=== PATIENT | female | born 1970 | race Caucasian/White ===

== ENCOUNTER 2018-03-27 17:40 | Outpatient (REF) | payer BC, SELFPAY ==
[2018-03-29 12:18] LABS: Hepatitis C Ab w Rflx HCV PCR Negative (NEGAT)
[2018-03-29 12:37] LABS: HIV-1/2 Ag & Ab Screen Negative (NEGAT)
== END 2018-03-27 18:00 ==
LOC: NCHCN 17:40
PROVIDERS: PCP Nurse Practitioner Family; Visit Provider Registered Nurse
DX: Z11.3 Encounter for screening for infections with a predominantly sexual mode of transmission (principal); Z11.4 Encounter for screening for human immunodeficiency virus [HIV]; Z11.59 Encounter for screening for other viral diseases
CPT/HCPCS: 86803; 87389

== ENCOUNTER 2018-06-26 17:39 | Outpatient (REF) | payer BC, SELFPAY ==
[2018-06-28 12:17] LABS: Hepatitis C Ab w Rflx HCV PCR Negative (NEGAT)
[2018-06-28 12:33] LABS: HIV-1/2 Ag & Ab Screen Negative (NEGAT)
== END 2018-06-26 17:59 ==
LOC: NCHCN 17:39
PROVIDERS: PCP Nurse Practitioner Family; Visit Provider Registered Nurse
DX: Z11.3 Encounter for screening for infections with a predominantly sexual mode of transmission (principal); Z11.4 Encounter for screening for human immunodeficiency virus [HIV]; Z11.59 Encounter for screening for other viral diseases
CPT/HCPCS: 86803; 87389

== ENCOUNTER 2018-12-25 21:58 | Outpatient (REF) | payer MEDICAID, SELFPAY ==
[2018-12-27 11:40] LABS: Hepatitis C Ab w Rflx HCV PCR Negative (NEGAT)
[2018-12-27 11:46] LABS: HIV-1/2 Ag & Ab Screen Negative (NEGAT)
== END 2018-12-25 22:18 ==
LOC: NCHCN 21:58
PROVIDERS: PCP Nurse Practitioner Family; Visit Provider Registered Nurse
DX: Z11.3 Encounter for screening for infections with a predominantly sexual mode of transmission (principal); Z11.4 Encounter for screening for human immunodeficiency virus [HIV]; Z11.59 Encounter for screening for other viral diseases
CPT/HCPCS: 86803; 87389

== ENCOUNTER 2019-03-26 10:49 | Outpatient (REF) | payer MEDICAID, SELFPAY ==
[2019-03-28 14:59] LABS: HIV-1/2 Ag & Ab Screen Negative (Negative); Hepatitis C Ab w Rflx HCV PCR Negative (Negative)
== END 2019-03-26 11:09 ==
LOC: NCHCN 10:49
PROVIDERS: PCP Nurse Practitioner Family; Visit Provider Registered Nurse
DX: Z20.9 Contact with and (suspected) exposure to unspecified communicable disease (principal); Z11.4 Encounter for screening for human immunodeficiency virus [HIV]; Z11.59 Encounter for screening for other viral diseases
CPT/HCPCS: 86803; 87389

== ENCOUNTER 2020-01-02 07:25 | Outpatient (CLI) | payer MEDICAID, SELFPAY ==
[2020-01-03 19:24] LABS: Patient Race White; SARS-CoV-2 RNA Undetected (Undetected); SARS-CoV-2 Specimen Source Nasopharynx
== END 2020-01-02 07:45 ==
PROVIDERS: PCP Nurse Practitioner Family; Visit Provider Registered Nurse
DX: R50.9 Fever, unspecified (principal)
CPT/HCPCS: U0003

== ENCOUNTER 2020-01-05 15:44 | Emergency (ER) | payer MEDICAID, SELFPAY ==
[2020-01-05 15:50] VITALS: BP 153/91; PULSE 82; RESP 16; TEMP 37.1; O2SAT 98
--- NOTE | 2020-01-05 16:18 | ED.GENADUL_ITS ---
Discharge Plan Disposition Patient Disposition: HOME Condition: Stable Discharge Details Clinical Impression: Fever and chills Primary Care Provider: Ximena Wu ED Provider: Leti Lagunas Home Meds and New Rx's Prescriptions: New doxycycline hyclate 100 mg tablet 100 mg PO BID 14 Days Qty: 28 RF: 0 No Action omeprazole [Prilosec] 20 mg Capsule,Delayed Release(Dr/Ec) 20 mg PO DAILY RF: 0 Discharge Instructions Instructions: Lyme Disease (ED), Fever in Adults (ED) Additional Instructions: At this time the lying panel is pending. Due to symptoms and presence of rash will place you on doxycycline which is the treatment for Lyme disease as prophylaxis. This may cause upset stomach nausea and diarrhea. Eat yogurt daily while on the antibiotic and/or take a probiotic. Follow up with primary care provider in 3-5 days. Return to ED sooner if any worsening or concerns. Increase oral fluids. If the Lyme panel comes back positive you will get a call from us. We also added on a hepatitis panel to your labs which we will also call you back if it comes back positive. Referrals: Ximena Wu [Primary Care Provider] - Discharge Data Discharge Date/Time-TO BE ENTERED AT DEPARTURE: 01/05/20 18:05 Medical Decision Making At this time CBC, BMP, tick and Lyme panel, urinalysis ordered to eval for fever source. 1731: EKG was reviewed by Isidro Uribe MD ER attending, please see his official reading. Normal sinus rhythm, CBC shows no leukocytosis white blood cell count is 5.81, hemoglobin 13.8, hematocrit 42.3, sodium 137, potassium 3.8, BUN 9 creatinine 0.81, GFR greater than 60, AST is 95, ALT 255, alk phos is 139 patient denies drinking any alcohol. Urine shows small blood 3-5 RBCs. Differential diagnosis includes Lyme disease, hepatitis, or other etiology for fever. Patient denies any use of alcohol denies any chronic use of Tylenol or any other medications.. No other reason to explain elevated LFTs. At this time I will place patient on doxycycline for possible Lyme disease. Discussed this with patient who verbalizes understanding. At this time I do not feel that rash resembles herpes zoster or shingles. Patient instructed to follow-up with PCP in discussed that hepatitis panel and Lyme panel is pending at this time. HPI General Mode of arrival: ambulatory . Date/Time Provider Initiated Documentation: 01/05/20 16:05 . Limitations to Documentation: no limitations . Information obtained by: patient . HPI Narrative: 49-year-old female presents to the ED with chief complaint of fever x1 week. Patient states she has had flulike symptoms for the last week including fever, myalgias, chills. Yesterday she noticed a rash noted to her left flank. She denies any nausea vomiting diarrhea or abdominal pain. She does have a well demarcated area of erythema raised maculopapular area with a central puncture wound noted. It is warm. No surrounding erythema or induration. She has no past medical histories, is a non-smoker. Patient was concerned for possible Lyme disease although she cannot recall an exact tick bite, versus shingles. Related Data Home Medications Medication Instructions Recorded Confirmed doxycycline hyclate 100 mg PO BID 14 Days #28 tab 01/05/20 omeprazole [Prilosec] 20 mg PO DAILY 01/05/20 01/05/20 Previous Rx's Medication Instructions Recorded doxycycline hyclate 100 mg PO BID 14 Days #28 tab 01/05/20 Allergies Allergy/AdvReac Type Severity Reaction Status Date / Time No Known Allergies Allergy Unverified 01/05/20 15:56 General Stated Complaint: RashLesion SHASHI: 4 Review of Systems Narrative: Constitutional: Negative for weight loss, alert and oriented, well groomed, normal body habitus, appears comfortable. Positive fever. HEENT: Denies trauma, headaches, blurry vision, nasal discharge, sore throat, trouble swallowing. Chest: Denies chest pain, palpitations, irregular rhythm, hypertension. Respiratory: Denies Shortness of breath, cough, hemoptysis. GI: Denies abdominal pain, nausea, vomiting, diarrhea, constipation. : Denies dysuria, hematuria, flank pain, rectal bleeding. Skin, does have a well demarcated raised erythemic area with a central puncture wound noted to her left flank. Neuro: Denies dizziness, blurry vision, weakness, syncope, headache or facial numbness. Hematologic: Denies easy bruising, intolerance to heat or cold, hair loss. FORMERLY [facility], [facility] Social History Smoking/Tobacco Use Status: Never Alcohol Intake: never Substance use type: does not use Exam Narrative Exam Narrative: Constitutional: Alert and oriented x3. Appears stated age. Normal body habitus. Head: Normocephalic, no trauma. Eyes: Pupils PERRLA, Red reflex noted, EOM's intact. Eyelids symmetrical without lesions, discharge, or swelling. ENT: Bilateral TM's WNL, External ear normal to inspection, no mastoid TTP, sw elling, or erythema, Nasal turbinates WNL, no nasal discharge. Normal dentition, Posterior pharynx WNL, no exudate. Chest: RRR, Normal S1, S2, distal pulses intact. Resp: Lungs clear to auscultation bilaterally, no wheezes, rales, or rhonchi. Musculoskeletal: Normal gait, 5/5 strength to all four extremities. Skin: Has a well demarcated raised maculopapular area noted to her left flank. Measuring approximately 9 cm x 5 cm. There is a central puncture wound , capillary refill less than 2 sec. Neurologic: Cranial nerves II-XII intact. Alert and oriented x 3. DTR's intact. Hematologic/Lymphatic: No ecchymosis, no lymphadenopathy. Course Vital Signs Vital signs: Vital Signs Temperature 37.1 C 01/05/20 15:50 Pulse 82 01/05/20 15:50 Respiratory Rate 16 01/05/20 15:50 Blood Pressure 153/91 H 01/05/20 15:50 Pulse Oximetry 98 01/05/20 15:50 Temperature 37.1 C 01/05/20 15:50 Temperature Source Oral 01/05/20 15:50 Pulse 82 01/05/20 15:50 Respiratory Rate 16 01/05/20 15:50 Respiratory Effort Non-Labored 01/05/20 15:50 Blood Pressure 153/91 H 01/05/20 15:50 Blood Pressure Position Sitting 01/05/20 15:50 Pulse Oximetry 98 01/05/20 15:50 Oxygen Delivery Method Room Air 01/05/20 15:50 Oxygen Flow Rate 0 01/05/20 15:50 Pain Level 2 01/05/20 15:50
[2020-01-05 16:33] LABS: Bilirubin Negative (Negative); Blood Small (Negative); Clarity Clear (Clear); Glucose Negative (Negative); Ketones Negative (Negative); Leukocyte Esterase Negative (Negative); Nitrite Negative (Negative); Specific Gravity 1.025 (1.005-1.025); Urobilinogen 0.2 EU/dL (Up TO 0.2); pH 5.5 (5-8)
[2020-01-05 16:41] LABS: Epithelial Cells Many HPF (Negative); WBC Negative HPF (0-5)
[2020-01-05 16:42] LABS: Bacteria Negative HPF (Negative); C & S Indicated? No; Crystals Negative HPF (Negative); Mucus Heavy (Negative)
[2020-01-05 16:49] LABS: Abs Immature Grans 0.04 10^3/uL (0.0-0.06); Absolute Basophil Count 0.03 10^3/uL (0.0-0.2); Absolute Eosinophil Count 0.11 10^3/uL (0.0-0.7); Absolute Lymphocyte Count 1.52 10^3/uL (1.2-3.4); Absolute Monocyte Count 0.84 10^3/uL (0.1-0.8); Absolute Neutrophil Count 3.27 10^3/uL (1.2-6.7); Basophils % 0.5; Eosinophils % 1.9; HCT 42.3 % (36.0-46.0); HGB 13.8 g/dL (11.2-15.7); Immature Grans % 0.7; Lymphocytes % 26.2; MCH 29.1 pg (27.0-33.0); MCHC 32.6 % (32.0-36.0); MCV 89.1 fL (80-95); MPV 10.9 fL (8.0-11.0); Monocytes % 14.5; Neutrophils % 56.2; Nucleated RBC 0 %; Platelet Count 378 10^3/uL (130-400); RBC 4.75 10^6/uL (3.93-5.22); RDW 12.8 % (11.7-14.6); RDW-SD 42.5 fL; WBC 5.81 10^3/uL (4.4-10.8)
[2020-01-05 16:56] LABS: Anion Gap 6.1 mmol/L (3-11); BUN 9 mg/dL (7-18); CO2 29.9 mmol/L (21.0-32.0); CREATININE 0.81 mg/dL (0.55-1.02); Calcium 9.1 mg/dL (8.5-10.1); Chloride 101 mmol/L (98-107); Glucose 100 mg/dL (74-106); Potassium 3.8 mmol/L (3.5-5.1); Sodium 137 mmol/L (136-145)
[2020-01-05 17:02] LABS: ALT 255 U/L (14-59); AST 95 U/L (15-37); Albumin 3.4 g/dL (3.4-5.0); Alkaline Phosphatase 139 U/L (46-116); Bilirubin, Direct 0.17 mg/dL (0.00-0.20); Bilirubin, Total 0.4 mg/dL (0.2-1.0); Total Protein 7.9 g/dL (6.4-8.2)
--- NOTE | 2020-01-05 17:15 | RT.EKG_ITS ---
APPROVED REPORT Exam: Resting ECG Patient Location: E HR:76 bpm ECG Measurements Heart Rate 76 AXIS MS 121 P -10 QRSd 81 QRS 48 QT 381 T 7 QTc 430 Conclusion Sinus rhythm...normal P axis, V-rate 60- 99
[2020-01-05 17:58] VITALS: BP 143/76; PULSE 81; RESP 18; TEMP 37.3; O2SAT 97
[2020-01-05] MEDS: Doxycycline Hyclate 100 MG CAP PO (18:00)
[2020-01-05 18:03] VITALS: BP 143/76; PULSE 81; RESP 18; TEMP 37.3; O2SAT 97
[2020-01-07 11:50] LABS: Lyme Ab w Rflx to Lyme Confirm Positive (Negative)
[2020-01-07 12:42] LABS: Hepatitis A Antibody IgM Negative (Negative); Hepatitis B Core Antibody Negative (Negative); Hepatitis B surface Ag Negative (Negative); Hepatitis C Ab w Rflx HCV PCR Negative (Negative)
[2020-01-08 15:27] LABS: IgG Band(s) p41; IgG Immunoblot Negative (Negative); IgM Band(s) p23; IgM Immunoblot Negative (Negative)
--- NOTE | 2020-01-08 20:45 | W.ED.FU ---
Follow Up Plan: patient called asking for results, advised of negative hepatitis and positive lyme, she will continue doxy and folllw up with pcp
[2020-01-08 21:53] LABS: Anaplasma phagocytophilum Negative (Negative); B. miyamotoi PCR Negative (Negative); Babesia divergens/MO-1 Negative (Negative); Babesia duncani Negative (Negative); Babesia microti Negative (Negative); Ehrlichia chaffeensis Negative (Negative); Ehrlichia ewingii/canis Negative (Negative); Ehrlichia muris eauclairensis Negative (Negative)
--- NOTE | 2020-01-09 11:02 | W.ED.FU ---
Date of service: 01/09/20 Time of Service: 11:02 Follow Up Plan: Call made to patient regarding positive Lyme disease, she verbalizes understanding, has a PCP appt tomorrow and is taking the doxycycline.
== END 2020-01-05 18:05 | disposition home or self-care (01) ==
PROVIDERS: Emergency Provider Registered Nurse Emergency; PCP Internal Medicine
DX: R50.9 Fever, unspecified (principal); A69.20 Lyme disease, unspecified; Z03.818 Encounter for observation for suspected exposure to other biological agents ruled out
CPT/HCPCS: 36415; 80048; 80076; 86617; 86704; 86709; 86803; 87340; 87449; 87798; 93005; 99285; 81003; 81015; 85025; 86618; 93010; 99284

== ENCOUNTER 2020-01-10 09:43 | Outpatient (REF) | payer MEDICAID, SELFPAY ==
--- NOTE | 2020-01-10 09:15 | PAPFT_PTH ---
PATIENT: Adrianna Jeffers LOC: [facility] U#:[id number] AGE/SX: 49/F ROOM: RE01/10/[address]: Elaine Pal : 1970 BED: DIS: 01/10/2020 SPEC #: [id number] RECD: 01/11/20 12:58 STATUS: JOSE REQ #: [id number] KIYA: 01/10/20 09:[address]: Elaine Pal DEPT: [facility] Cytology RECD BY: Makenzie Jauregui ENTERED: 01/11/20 12:59 SP TYPE: PAPFT OTHR DR: Ximena Wu Tissues: 1 - CX/ENDOCX FOR PAP SMEARS Procedures: PAP THIN PREP/UVM Screening HPV DNA PROBE Comments: [id number] (CHLAMYDIA/GC)
[2020-01-10 21:08] LABS: Hemoglobin A1C 6.5 % (<5.7)
[2020-01-14 10:34] LABS: HIV-1/2 Ag & Ab Screen Negative (Negative)
[2020-01-15 07:15] LABS: Chlamydia Result Negative (Negative); GC Result Negative (Negative)
== END 2020-01-10 10:03 ==
LOC: NCHCN 09:43
PROVIDERS: PCP Internal Medicine; Visit Provider Registered Nurse
DX: Z11.4 Encounter for screening for human immunodeficiency virus [HIV] (principal); E66.9 Obesity, unspecified; R73.03 Prediabetes; Z00.00 Encounter for general adult medical examination without abnormal findings; Z12.4 Encounter for screening for malignant neoplasm of cervix
CPT/HCPCS: 87389; 87491; 87591; 88142; 83036; 87624

== ENCOUNTER 2020-01-24 16:19 | Outpatient (REF) | payer MEDICAID, SELFPAY ==
[2020-01-24 21:46] LABS: ALT 35 U/L (14-59); AST 17 U/L (15-37); Albumin 3.8 g/dL (3.4-5.0); Alkaline Phosphatase 94 U/L (46-116); Anion Gap 10.8 mmol/L (3-11); BUN 16 mg/dL (7-18); Bilirubin, Total 0.3 mg/dL (0.2-1.0); CO2 24.2 mmol/L (21.0-32.0); Calcium 8.8 mg/dL (8.5-10.1); Chloride 105 mmol/L (98-107); Glucose 140 mg/dL (74-106); Potassium 4.1 mmol/L (3.5-5.1); Sodium 140 mmol/L (136-145); Total Protein 7.4 g/dL (6.4-8.2)
== END 2020-01-24 16:39 ==
LOC: NCHCN 16:19
PROVIDERS: PCP Internal Medicine; Visit Provider Registered Nurse
DX: R74.8 Abnormal levels of other serum enzymes (principal)
CPT/HCPCS: 80053

== ENCOUNTER 2020-02-13 10:49 | Outpatient (REF) | payer MEDICAID, SELFPAY ==
--- NOTE | 2020-02-13 10:40 | CER_PTH ---
PATIENT: Adrianna Jeffers LOC: [facility] U#:[id number] AGE/SX: 49/F ROOM: RE02/13/[address]: Sandy Cain DO : 1970 BED: DIS: 02/13/2020 SPEC #: [id number] RECD: 02/13/20 12:52 STATUS: JOSE REQ #: [id number] KIYA: 02/13/20 10:[address]: Sandy Cain DEPT: Surgical Specimen RECD BY: Makenzie Jauregui ENTERED: 02/13/20 12:53 SP TYPE: CER OTHR DR: Ximena Wu Tissues: 1 - CERVICAL BIOPSY Procedures: GROSS AND MICRO LEVEL 4 Comments: [id number]
== END 2020-02-13 11:09 ==
LOC: LBN 10:49
PROVIDERS: PCP Internal Medicine; Visit Provider Obstetrics & Gynecology
DX: N84.1 Polyp of cervix uteri (principal)
CPT/HCPCS: 88305

== ENCOUNTER 2020-02-21 01:04 | Outpatient (CLI) | payer MEDICAID, SELFPAY ==
--- NOTE | 2020-02-21 06:15 | DI.US_ITS ---
EXAM: US PELVIS TRANSVAGINAL CLINICAL HISTORY: prolapse,CYSTOCELE,N81.10 TECHNIQUE: Transabdominal and transvaginal imaging was performed using standard protocol. COMPARISON: No exams were available for comparison FINDINGS: KIDNEYS: Kidneys are symmetric in size. No evidence of renal calculi. No evidence of hydronephrosis. No renal mass or cyst identified. UTERUS: Anteverted. 7.6 x 3.1 x 4.4 cm. Endometrium: 8 millimeters. Myometrium: 1.1 centimeter anterior myometrial fibroid. Cervix: Unremarkable. OVARIES: Right: Cyst or mass: 2.1 x 0.7 x 1.7 centimeter circumscribed fluid collection the adjacent to the ri ght ovary. Left: Cyst or mass: None. DOPPLER: Color: Symmetric and uniform flow to both ovaries. No hyperemia. Duplex: Normal ovarian arterial waveforms visualized. CUL-DE-SAC: Free fluid: None. IMPRESSION: 1. Small anterior myometrial fibroid. 2. Right para ovarian cyst. DATA REPOSITORY:
== END 2020-02-21 01:24 ==
PROVIDERS: PCP Internal Medicine; Visit Provider Obstetrics & Gynecology
DX: D26.1 Other benign neoplasm of corpus uteri (principal); N83.291 Other ovarian cyst, right side; N81.10 Cystocele, unspecified
CPT/HCPCS: 76830; 76856

== ENCOUNTER 2020-03-03 12:10 | Outpatient (REF) | payer MEDICAID, SELFPAY ==
--- NOTE | 2020-03-03 11:35 | ENDOMET_PTH ---
PATIENT: Adrianna Jeffers LOC: [facility] U#:[id number] AGE/SX: 49/F ROOM: RE03/03/[address]: Sandy Cain DO : 1970 BED: DIS: 03/03/2020 SPEC #: [id number] RECD: 03/03/20 12:39 STATUS: SOUShmuel REQ #: [id number] KIYA: 03/03/20 11:[address]: Sandy Cain DEPT: Surgical Specimen RECD BY: Makenzie Jauregui ENTERED: 03/03/20 12:39 SP TYPE: Endomet OTHR DR: Ximena Wu Tissues: 1 - ENDOMETRIUM BX/OBDULIO Procedures: GROSS AND MICRO LEVEL 4 Comments: [id number]
== END 2020-03-03 12:30 ==
LOC: LBN 12:10
PROVIDERS: PCP Internal Medicine; Visit Provider Obstetrics & Gynecology
DX: N85.8 Other specified noninflammatory disorders of uterus (principal); N85.00 Endometrial hyperplasia, unspecified
CPT/HCPCS: 88305

== ENCOUNTER 2020-05-19 04:28 | Outpatient (CLI) | payer MEDICAID, SELFPAY ==
[2020-05-19 09:19] LABS: Abs Immature Grans 0.05 10^3/uL (0.0-0.06); Absolute Basophil Count 0.04 10^3/uL (0.0-0.2); Absolute Eosinophil Count 0.11 10^3/uL (0.0-0.7); Absolute Lymphocyte Count 2.42 10^3/uL (1.2-3.4); Absolute Monocyte Count 0.66 10^3/uL (0.1-0.8); Absolute Neutrophil Count 6.16 10^3/uL (1.2-6.7); Basophils % 0.4; Eosinophils % 1.2; HCT 41.4 % (36.0-46.0); HGB 13.9 g/dL (11.2-15.7); Immature Grans % 0.5; Lymphocytes % 25.6; MCH 29.9 pg (27.0-33.0); MCHC 33.6 % (32.0-36.0); MPV 11.7 fL (8.0-11.0); Neutrophils % 65.3; Nucleated RBC 0 %; Platelet Count 320 10^3/uL (130-400); RBC 4.65 10^6/uL (3.93-5.22); RDW 12.6 % (11.7-14.6); RDW-SD 41.3 fL; WBC 9.44 10^3/uL (4.4-10.8)
[2020-05-19 10:15] LABS: Source Nasal/Nares
[2020-05-19 13:07] LABS: COVID-19 PCR Negative (Negative)
== END 2020-05-19 04:29 | disposition home or self-care (01) ==
LOC: LBO 04:28
PROVIDERS: PCP Internal Medicine; Visit Provider Obstetrics & Gynecology
DX: N81.89 Other female genital prolapse (principal); N39.46 Mixed incontinence; Z01.818 Encounter for other preprocedural examination; Z01.812 Encounter for preprocedural laboratory examination
CPT/HCPCS: 36415; 86850; 86900; 86901; U0003; 85025

== ENCOUNTER 2020-05-22 12:04 | Inpatient (IN) | payer MEDICAID, SELFPAY ==
[2020-05-22] VITALS (17 sets, daily range): BP systolic 95–136; BP diastolic 44–76; PULSE 65–79; RESP 12–28; TEMP 36.6–36.9; O2SAT 90–96
[2020-05-22] MEDS: Lactated Ringers 1,000 ML 125 ML IV ×2 (06:53→12:01)
[2020-05-22] MEDS: ceFAZolin 2 GM/50 ML BAG IVPB (08:14)
--- NOTE | 2020-05-22 10:00 | UTER_PTH ---
PATIENT: Adrianna Jeffers LOC: [facility] U#:[id number] AGE/SX: 50/F ROOM: OBS.306 RE05/22/[address]: Sandy Cain DO : 1970 BED: A DIS: 05/23/2020 SPEC #: [id number] RECD: 05/22/20 12:44 STATUS: SOUShmuel REQ #: [id number] KIYA: 05/22/20 10:[address]: Sandy Cain DEPT: Surgical Specimen RECD BY: Makenzie Jauregui ENTERED: 05/22/20 12:44 SP TYPE: UTER OTHR DR: Ximena Wu Tissues: 1 - UTERUS W OR W/O OVARIES(NOT TUMOR/PROLAPSE) Procedures: GROSS AND MICRO LEVEL 4 Comments: [id number]
[2020-05-22] MEDS: Bupivacaine 0.5% Pres-Free 30 ML VIAL (10:11)
--- NOTE | 2020-05-22 11:55 | W.PM.OP ---
Date of service: 05/22/20 Time of Service: 11:55 Operative Note Operative Note DATE OF PROCEDURE: 05/22/20 PRE-OP DIAGNOSIS: stress urinary incontinence POST-OP DIAGNOSIS: same PROCEDURE: midurethral sling (single incision) SURGEON: Alvarez Cortes ANESTHESIA TYPE: General LMA/ETT Refer to Anesthesia Record ESTIMATED BLOOD LOSS: 50 PATHOLOGY: none sent COMPLICATIONS: None Patient was transported to: PACU Patient's condition: stable Implants: Altis single incision mid urethral sling Indications: This is a 50-year-old woman who has a history of pelvic floor prolapse. She also has mixed urinary incontinence. She will be undergoing hysterectomy and pelvic floor repair by the gynecology team today. She is agreeable to a mid urethral sling to treat her stress incontinence. Findings: Clear urine from both ureteral orifice ease Procedure Description: The patient was brought to the operating room on 05/22/2020. She underwent hysterectomy and pelvic floor repair by Dr. Cain in the gynecology team. After the DEGREASER OPERATOR procedure was completed, I then performed the mid urethral sling. The patient was already in the dorsal lithotomy position. Her indwelling catheter was palpable and we identified the mid urethral area. An anterior vaginal wall incision was made over the mid urethral region. A plane was developed on each side of the urethra out to the obturator foramen. We then loaded and passed the needles of the Altis single incision sling along each of the dissected planes on each side of the urethra. The tip of the needles was passed through the obturator foramen and the bolsters on the sling were secured both were removed. The Hartman catheter was then removed and cystoscopy was performed with a 22 [place] rigid cystoscope. We utilized a 30 degree lens to visualize the ureteral orifice ease. Clear urine was seen coming from each side. We then switched to the 70 degree lens to get a better view of the bladder neck area. No perforations with the mid urethral sling or needles were identified. We then removed the cystoscope and replaced the 16 [place] Hartman catheter through the urethra into the bladder. The sling was tensioned by placing a Day scissors between the urethra and the sling. The tensioning suture was then cut leaving the sling flat against the mid urethral area. The vaginal mucosa was then closed using [id number] 2-0 Vicryl sutures. The patient tolerated this procedure well. We will decide when to remove the Hartman catheter as the patient recovers from anesthesia.
--- NOTE | 2020-05-22 12:06 | W.PM.OP ---
Date of service: 05/22/20 Time of Service: 12:06 Operative Note Operative Note DATE OF PROCEDURE: 05/22/20 PRE-OP DIAGNOSIS: Pelvic organ prolapse POST-OP DIAGNOSIS: same PROCEDURE: Laparoscopically assisted vaginal hysterectomy with bilateral salpingectomy, lysis of adhesions, anterior and posterior colporrhaphy, Travis's culdoplasty. SURGEON: Sandy Cain ASSISTING SURGEON: Clover Mendez ANESTHESIA TYPE: General LMA/ETT and Spinal Refer to Anesthesia Record ESTIMATED BLOOD LOSS: 150 PATHOLOGY: other (Uterus, remnants of fallopian tubes, cervix) COMPLICATIONS: None Patient was transported to: PACU Patient's condition: stable Indications: Pelvic organ prolapse, symptomatic Findings: Grade 2 uterine prolapse, grade 2 cystocele, hypermobile urethra, grade 1 rectocele with enterocele Procedure Description: Patient is a 50-year-old female multigravid who has symptomatic uterine prolapse and stress urinary incontinence. She had a full and thorough evaluation preoperatively including referral to Dr. Cortes for urology and evaluation of need for mid urethral sling. Risk benefits alternatives of procedure were explained to patient along with complications that include but are not limited to infection, bleeding, injury to surrounding organs, risk of anesthesia, thromboembolism, recurrence of her prolapse symptoms. Patient taken to operating suite with an IV running where she was placed in dorsal supine position after she has been seated for placement of spinal narcotics for pain control postoperatively. Endotracheal intubation performed for the administration of general anesthesia with ease. She was then placed in modified dorsolithotomy position and prepped and draped in usual sterile fashion. Hartman catheter was inserted for continuous bladder drainage. Exam under anesthesia revealed a previous dimension findings which were grade 2 uterine prolapse, grade 2 seal, grade 1 rectocele with enterocele. At this point speculum placed in the vaginal vault and a ZUMI uterine manipulator placed for uterine manipulation. Speculum was removed and attention turned to the anterior abdominal wall. Infraumbilical area was infiltrated with half percent Marcaine and a vertical incision made. The anterior abdominal wall was elevated and a varies needle inserted directly into the abdomen. Pneumoperitoneum was created by using CO2 gas to a maximum pressure of 15 mmHg. At this point a bladeless Visiport was used to directly insert the camera into the abdomen. The abdomen was inspected there is noted to be adhesions of the omentum to the anterior abdominal wall. At this point a second and third right and left lower quadrant trochars were placed after infiltration of half percent Marcaine under direct visualization. The abdomen and pelvis were inspected and found to be atraumatic. At this point the omental adhesions to the anterior abdominal wall were meticulously sharply dissected with a LigaSure device allowing the omentum to draped freely into the abdomen. At this point the uterus was elevated. Both ovaries were normal in appearance. There was noted to be dilation of the left fallopian tube remnant and adhesed fimbriated end and similar small portion of fimbriated end attached to the right ovary. At this point the remainder of the tube on the left was cautery transected and removed from the abdomen as well remainder of the portion of the tube on the right. This point attention was turned to the left round ligament which was cautery transected and ligated. The utero-ovarian ligament was cautery transected and ligated and the broad ligament was then opened and the bladder flap created anteriorly. Similar procedure was carried out on the right with cautery ligation of the utero-ovarian ligament followed by cautery ligation of the round ligament and allowing access to the broad ligament. The remainder of the bladder flap was created with meticulous sharp dissection. At this point all pedicles were inspected and found to be hemostatic and attention was then turned to the vaginal vault. Pneumoperitoneum was released and a ZUMI uterine manipulator was removed. Weighted speculum was inserted into the posterior vaginal vault and Gerson clamps used to grasp the anterior and posterior lip of the cervix. In a circumferential incisional fashion with cautery incision was made surrounding the cervix. The posterior cul-de-sac was entered grasped and entered sharply. Uterosacral cardinal complex was grasped with Zeppelin clamp bilaterally transected and ligated. At this point attention was turned to the anterior cul-de-sac which was meticulously sharp dissected and entered. Remainder of the uterine pedicles were clamped transected and ligated following delivery of the uterus and cervix through the vaginal vault. At this point attention was turned to the posterior peritoneum which in typical Travis's culdoplasty fashion was plicated. Suture was placed at the left uterosacral cardinal complex allowing elevation of the vaginal apices initially on the left and followed on the right. The remainder of the peritoneum was then closed and the vaginal cuff closure completed. At this point anterior colporrhaphy was performed in the usual fashion. [place] was grasped anterior vaginal wall infiltrated with 1% Marcaine with epinephrine and a linear vaginal incision was then made. The vaginal redundant tissue was meticulously sharply and bluntly dissected away from the underlying endopelvic fascia. There is 1 area that appeared to have a skin layer of tissue over the bladder which was oversewn with 4-0 Vicryl suture in a pursestring fashion. The vaginal mucosa at this point was trimmed and endopelvic fascia at the lateral anterior aspect of the vaginal vault was reapproximated to produce support of the anterior vaginal vault. The vaginal incision was then closed using 0 Vicryl suture in a running locked fashion and hemostatic. At this point posterior colporrhaphy was then performed. Allis clamps were used to grab the tissue at the posterior fourchette the posterior vaginal wall was infiltrated with 1% lidocaine with epinephrine and a vertical incision made carried out to the apex of the vaginal cuff. The vaginal mucosa was then again meticulously bluntly and sharply excised away from the underlying endopelvic fascia and trimmed appropriately. Enterocele was noted and pursestring suture placed to reduce the enterocele. At this point endopelvic fascia of the posterior vaginal septum was then reapproximated in the midline and vaginal tissue closed using again 0 Vicryl suture in a running locked fashion and found to be hemostatic. At this point anterior posterior portion were complete and attention was returned to the abdomen. Pneumoperitoneum was recreated and the abdomen inspected. All pedal were found to be hemostatic. This would include the vaginal cuff. At this point, Dr. Cortes was notified for completion of his portion of procedure with tension-free transobturator for mid urethral sling. He also performed cystoscopy of the bladder which confirmed atraumatic bladder and bilaterally patent ureters. Upon completion of his cystoscopy we diminished the CO2 gas for pneumoperitoneum removed all trochars from the abdomen. Fascial incision at the umbilicus was closed using 0 Vicryl suture in a simple interrupted fashion skin edge was then reapproximated 4-0 Monocryl suture and Steri-Strips along with a sterile dressing were placed. Upon completion of all procedure counts were correct and patient was returned to dorsal supine position. She woke from anesthesia with ease with replacement of a Hartman catheter draining clear yellow urine. She is today taken to recovery in stable condition. EBL: 150 mL Complications: None apparent Pathology: Bilateral tubal remnants and uterus with cervix for examination.
--- NOTE | 2020-05-22 14:53 | NUR.NOTE ---
1400-- Arrived via bed to room 305, awale. alert. IV LR @ 125 ml/hr. SCD applied bilat. Hartman to BSD. Report received fromWACU nurse.Nursing Note:
--- NOTE | 2020-05-22 17:08 | W.PM.PROGNOT ---
Date of Service Date of service: 05/22/20 Time of Service: 17:08 Assessment and Plan Assessment and plan (1) S/P laparoscopic assisted vaginal hysterectomy (LAVH): Status: Acute Assessment and plan: Patient seen tonight postoperative day #0 status post laparoscopically assisted vaginal hysterectomy with bilateral salpingectomy anterior. Posterior colporrhaphy and mid urethral sling placed by Dr. Cortes. She is doing well. Her pain is well controlled. She does have some itching. She is tolerating regular diet without difficulty. She was encouraged to ambulate and use her incentive spirometer tonight. She will be seen in the morning for probable discharge home Subjective Subjective Patient reports: no new complaints, feels better, pain is less and tolerating a regular diet Exam Const General: cooperative, healthy appearing, comfortable and no acute distress Eyes General: appearance normal, both eyes and all related structures Resp Effort & Inspection: normal respiratory effort Cardio Rate: regular rate Extrem General: no clubbing, cyanosis or edema Objective Last Vital Signs Temp 98.4 F 05/22/20 16:04 Pulse 69 05/22/20 16:04 Resp 16 05/22/20 16:04 BP 113/68 05/22/20 16:04 Pulse Ox 95 05/22/20 16:04
[2020-05-22] MEDS: diphenhydrAMINE 50 MG/ML VIAL 25 MG IVP (17:24)
[2020-05-22] MEDS: Normal Saline Flush 10 ML SYR IV ×2 (17:24→18:17)
[2020-05-22] MEDS: Ketorolac 30 MG/ML VIAL 15 MG IVP ×2 (18:16→23:56)
[2020-05-22] MEDS: Docusate Sodium 100 MG CAP PO (20:32)
[2020-05-23 02:45] VITALS: BP 114/68; PULSE 63; RESP 18; TEMP 37; O2SAT 96
[2020-05-23] MEDS: Ketorolac 30 MG/ML VIAL 15 MG IVP ×2 (05:59→11:37)
[2020-05-23] MEDS: Normal Saline Flush 10 ML SYR IV ×2 (05:59→11:38)
--- NOTE | 2020-05-23 07:00 | W.PM.PROGNOT ---
Date of Service Date of service: 05/23/20 Time of Service: 07:00 Assessment and Plan Assessment and plan (1) Mixed urinary incontinence due to female genital prolapse: Status: Acute Assessment and plan: She is doing well after her surgical procedure. Her catheter has been removed. I have no objection to her discharge after she voids. I will plan on seeing her back in 2 to 4 weeks for a recheck. If it is easier for the patient, we can make our recheck coincide with Dr. Cain's follow-up visit. Subjective Subjective Interval history since last seen: She is comfortable and sitting up in a chair at the bedside. Her Hartman catheter has already been removed. She is tolerating oral nutrition and medications. Exam Narrative Exam Narrative: She looks well. Her vital signs are documented elsewhere in this chart She is awake and alert Objective Last Vital Signs Temp 37.0 C 05/23/20 02:45 Pulse 63 05/23/20 02:45 Resp 18 05/23/20 02:45 BP 114/68 05/23/20 02:45 Pulse Ox 96 05/23/20 02:45
[2020-05-23 07:31] VITALS: BP 111/73; PULSE 60; RESP 18; TEMP 36.5; O2SAT 98
--- NOTE | 2020-05-23 07:55 | W.PM.PROGNOT ---
Date of Service Date of service: 05/23/20 Time of Service: 07:55 Assessment and Plan Assessment and plan (1) S/P laparoscopic assisted vaginal hysterectomy (LAVH): Status: Acute Assessment and plan: Patient postoperative day #1 status post laparoscopically assisted vaginal hysterectomy with bilateral salpingectomy, lysis of adhesions, anterior posterior colporrhaphy, mid urethral sling placement per Dr. Cortes. She is doing well. She is up, ambulating, Hartman catheter is out. Pain is well controlled. Vital signs are stable. She is tolerating regular diet. She is passing flatus. She will to be discharged home today with follow-up in the office in 2 weeks. Subjective Subjective Patient reports: no new complaints, feels better, tolerating a regular diet and flatus; denies vomiting, shortness of breath and fever Interval history since last seen: Patient seen and examined this morning. Doing well. Hartman catheter is out. She has little pain. Her itching is improving. She has been up moving. She is eating a regular diet and passing gas. Exam Const General: cooperative, healthy appearing, comfortable and no acute distress Nutritional Appearance: overweight Orientation: alert and oriented x3 Eyes General: appearance normal, both eyes and all related structures Resp Effort & Inspection: normal respiratory effort Cardio Rate: regular rate Rhythm: regular rhythm GI Inspection: normal to inspection and incision (Dressed with Band-Aids) Palpation: soft, not firm and no guarding Auscultation: normal bowel sounds Skin General skin exam: no rashes or lesions noted Extrem General: normal to inspection, no clubbing, cyanosis or edema and no calf tenderness Psych Appearance: grossly normal and well kempt Speech and Movement: speech and movement normal Mood: congruent mood Affect: normal affect Attitude: cooperative Thought Process: normal Thought Content: normal Objective Last Vital Signs Temp 97.7 F 05/23/20 07:31 Pulse 60 05/23/20 07:31 Resp 18 05/23/20 07:31 BP 111/73 05/23/20 07:31 Pulse Ox 98 05/23/20 07:31
--- NOTE | 2020-05-23 08:35 | W.PM.DS.N ---
Date of service: 05/23/20 Time of Service: 08:35 DS: Diagnosis Discharge Diagnosis (1) S/P laparoscopic assisted vaginal hysterectomy (LAVH): Status: Acute Discharge Plan Disposition Patient Disposition: HOME Condition: Good Discharge Details Reason For Visit: LAVH,A&P REPAIR,MID-URETHRAL SLING Admit Date/Time: 05/22/20 12:04 Admit Provider: Sandy Cain Attending Provider: Sandy Cain Primary Care Provider: Ximena Wu [facility] Course Hospital Course: Patient underwent laparoscopically assisted vaginal hysterectomy with bilateral salpingectomy, lysis of adhesions, anterior and posterior forefeet, Travis's culdoplasty, mid urethral sling placement. She had uncomplicated intraoperative and postoperative course. She is discharged home postoperative day #1 ambulating, tolerating regular diet and oral pain medication with stable vital signs and good ability to void. She will be seen back in the office in 2 weeks time for postoperative checkup. Prescriptions will be sent to the pharmacy which will include Motrin, [place], Colace. Home Meds and New Rx's Prescriptions: New ibuprofen 800 mg tablet 800 mg PO Q8H PRNQty: 30 RF: 1 docusate sodium [Colace] 100 mg capsule 100 mg PO BID Qty: 30 RF: 0 hydrocodone-acetaminophen 5-325 mg tablet 1 tab PO Q6H PRNQty: 10 RF: 0 Continued metformin 500 mg tablet 500 mg PO DAILY RF: 0 omeprazole 20 mg Capsule,Delayed Release(Dr/Ec) 20 mg PO DAILY RF: 0 Discharge Instructions Stand Alone Forms: DSU Post Gynecology Surgery Activity:: pelvic rest Equipment/Supplies:: No Equipment Needed Diet:: As Tolerated Discharge Orders Discharge Orders: Discharge Order (Routine); Ordered 05/23/20 Ordered By: Sandy Cain DS: Summary Time Spent with Patient providing and/or coordinating discharge services: Less than 30 minutes Status at Discharge Functional status at discharge: independent ambulation Overall status at discharge: patient is back to baseline Mental Status: mental status grossly normal Speech and Movement: speech and movement normal Mood: congruent mood Affect: normal affect Exam Narrative Exam Narrative: See exam from progress note dated 05/23/2020 Psych Mental Status: mental status grossly normal Speech and Movement: speech and movement normal Mood: congruent mood Affect: normal affect DS: Data Vitals/I&O Vitals and I&O: Vital Signs Temperature 97.7 F 05/23/20 07:31 Temperature Source Oral 05/23/20 07:31 Pulse 60 05/23/20 07:31 Pulse Rhythm Regular 05/23/20 07:31 Respiratory Rate 18 05/23/20 07:31 Respiratory Effort 05/23/20 07:31 Respiratory Depth Normal 05/23/20 07:31 Respiratory Pattern Normal 05/23/20 07:31 Blood Pressure 111/73 05/23/20 07:31 Pulse Oximetry 98 05/23/20 07:31 Respiratory End-tidal CO2 34 05/22/20 13:20 Oxygen Delivery Method Room Air 05/23/20 07:31 Oxygen Flow Rate 0 05/23/20 07:31 Pain Level 0 05/23/20 07:31 Comment 05/22/20 18:30 Intake & Output 05/22/20 05/22/20 05/23/20 11:59 23:59 11:59 Intake Total 50 / 2049 1999 / 0 1500 / 1500 Output Total 2400 / 2400 550 / 550 Balance 50 / -350 -400 / -350 950 / 950 Weight 224 lb 6.889 oz Intake: IV 2049 / 2049 Oral 1500 / 1500 Output: Urine 2250 / 2250 550 / 550 Estimated Blood Loss 150 / 150 Other: Urine Color Yellow Pale Pale Urine Appearance Clear Clear Clear Urine Odor None Comment catheter in place to BSD. Had been emptied in PACU Emesis Description None PFSH Medical History Cervical polyp Fibroids Heartburn Mixed urinary incontinence due to female genital prolapse Pelvic organ prolapse quantification stage 2 cystocele Prediabetes Thickened endometrium Surgical History (Updated 05/22/20 @ 17:10 by Sandy Cain DO) History of bunionectomy History of reversal of tubal ligation History of tubal ligation S/P laparoscopic assisted vaginal hysterectomy (LAVH) Social History Smoking/Tobacco Use Status: Never Smoking risk assessment performed?: Yes Alcohol Intake: never Substance use type: does not use Do you feel safe at home: Yes Do you feel safe in your relationship?: Yes
[2020-05-23] MEDS: Docusate Sodium 100 MG CAP PO (11:38)
== END 2020-05-23 12:11 | disposition home or self-care (01) | DRG 743 ==
LOC: OBS 14:15
PROVIDERS: Urology; Admitting Provider Obstetrics & Gynecology; PCP Internal Medicine; Visit Provider Obstetrics & Gynecology
PROC: 0UT9FZZ Resection of Uterus, Via Natural or Artificial Opening With Percutaneous Endoscopic Assistance (ICD-10-PCS; CPT 58552; principal; 2020-05-22 07:30)
PROC: 0UT9FZZ Resection of Uterus, Via Natural or Artificial Opening With Percutaneous Endoscopic Assistance (ICD-10-PCS; CPT 57260; 2020-05-22 07:30)
PROC: 0TSD0ZZ Reposition Urethra, Open Approach (ICD-10-PCS; CPT 57288; 2020-05-22 07:30)
DX: N81.2 Incomplete uterovaginal prolapse (principal); N39.46 Mixed incontinence; E11.9 Type 2 diabetes mellitus without complications; K21.9 Gastro-esophageal reflux disease without esophagitis; Z79.84 Long term (current) use of oral hypoglycemic drugs
CPT/HCPCS: 57288; 58552; 57265; 88305; 99232; 99238; NC; 88307; C1781; J0690; J1100; J1200; J1885; J2001; J2250; J2405; J2704; J3010

== ENCOUNTER 2020-07-13 20:25 | Emergency (ER) | payer MEDICAID, SELFPAY ==
[2020-07-13 20:45] VITALS: BP 140/95; PULSE 70; RESP 16; TEMP 36.7; O2SAT 98
--- NOTE | 2020-07-13 21:00 | DI.RAD_ITS ---
EXAM: XR SHOULDER RT COMPLETE 2+V CLINICAL HISTORY: pain after moving. TECHNIQUE: 2D digital imaging was performed. COMPARISON: No exams were available for comparison FINDINGS: There is no evidence of fracture or dislocation. The main finding is a prominent calcific density me asuring 1.6 0.5 cm the soft tissues adjacent to the greater tuberosity consistent with calcific rotat or cuff tendinitis-bursitis. Mild degenerative changes are noted in the glenohumeral and AC joints. IMPRESSION: Calcific rotator cuff tendinitis/bursitis. DATA REPOSITORY: RADIATION DOSE DELIVERED:
--- NOTE | 2020-07-13 21:50 | ED.GENADUL_ITS ---
Discharge Plan Disposition Patient Disposition: HOME Condition: Good Discharge Details Clinical Impression: Calcific tendinitis Primary Care Provider: Elaine Mora ED Provider: Makenzie Dinero Home Meds and New Rx's Prescriptions: Continued metformin 500 mg tablet 500 mg PO DAILY RF: 0 omeprazole 20 mg Capsule,Delayed Release(Dr/Ec) 20 mg PO DAILY RF: 0 Discharge Instructions Instructions: Tendinitis (ED) Additional Instructions: Take ibuprofen 600 mg every 8 hours with food Take Tylenol 650 every 4-6 hours I have supplied you with a sling, continue to range her shoulder so it does not become frozen. Please follow-up with physical therapy, at discretion of your pcp Decrease use of the affected arm i.e. no repetitive lifting Return earlier should you have fever, chills, worsening pain, or with any new or progressing symptoms including chest pain or shortness of breath Stand Alone Forms: Work Release Discharge Data Discharge Date/Time-TO BE ENTERED AT DEPARTURE: 07/13/20 22:05 Medical Decision Making Patient is afebrile and nontoxic, she has evidence of calcific tendinitis on her x-ray which was interpreted by radiology and reviewed by me She will be placed in a sling with frozen shoulder precautions discussed Given ibuprofen 600 mg every 8 hours with food Tylenol 650 mg every 4-6 hours She is also instructed to use Voltaren gel as needed for discomfort and suggested follow-up with physical therapy in the outpatient setting She will need outpatient reevaluation 1 week with persistent pain return cautions discussed patient understanding I did consider pulmonary embolism and myocardial ischemia, however patient has very reproducible shoulder pain with obvious calcified region over the affected area x-ray, exam consistent with diagnosis at discharge No pleuritic chest pain, no hypoxia, no tachypnea, low suspicion for pulmonary embolism other return precautions discussed Differential Diagnosis Differential Diagnosis: Septic bursitis, calcific tendinitis, strain, myocardial ischemia Medical Records Medical records reviewed: Yes I reviewed the patient's medical records. Lab Data Lab results reviewed: Yes I reviewed the patient's lab results. HPI This 50-year-old female presents with report of a right-sided shoulder pain which started 2 days prior to arrival after moving some heavy objects. She states the pain is exacerbated with any sort of position change. She denies any fever or chills. She denies any chest pain or shortness of breath. She does not have pain when the shoulder is completely sedentary. She denies any paresthesias or neck pain. She denies any headache. She describes the pain as sharp and positional. She has tried taking ibuprofen 800 mg at home without relief of her pain. She denies prior history of similar symptoms in the past. General Date/Time Provider Initiated Documentation: 07/13/20 20:52 . Related Data Home Medications Medication Instructions Recorded Confirmed omeprazole 20 mg PO DAILY 01/05/20 07/13/20 metformin 500 mg tablet 500 mg PO DAILY 02/13/20 07/13/20 Allergies Allergy/AdvReac Type Severity Reaction Status Date / Time morphine AdvReac Verified 07/13/20 20:48 Sulfa (Sulfonamide AdvReac Verified 07/13/20 20:48 Antibiotics) General Stated Complaint: Orthopedic SHASHI: 4 Review of Systems Narrative: Review of systems negative x7 aside from where indicated in HPI [facility] Medical History Cervical polyp Fibroids Heartburn Mixed urinary incontinence due to female genital prolapse Pelvic organ prolapse quantification stage 2 cystocele Prediabetes Thickened endometrium Surgical History History of bunionectomy History of reversal of tubal ligation History of tubal ligation S/P laparoscopic assisted vaginal hysterectomy (LAVH) Social History Smoking/Tobacco Use Status: Never Smoking risk assessment performed?: Yes Alcohol Intake: never Substance use type: does not use Do you feel safe at home: Yes Do you feel safe in your relationship?: Yes Exam Const General: cooperative and no acute distress Neck Other: No tenderness to palpation to left cervical spine Cardio Rate: regular rate Rhythm: regular rhythm Extrem Other: Right shoulder tenderness at insertion site of long head bicep tendon, no crepitus, no erythema or overlying rash Significant pain with supination and abduction Neurovascularly intact Course Vital Signs Vital signs: Vital Signs Temperature 36.7 C 07/13/20 20:45 Pulse 70 07/13/20 20:45 Respiratory Rate 16 07/13/20 20:45 Blood Pressure 140/95 H 07/13/20 20:45 Pulse Oximetry 98 07/13/20 20:45 Temperature 36.7 C 07/13/20 20:45 Temperature Source Skin 07/13/20 20:45 Pulse 70 07/13/20 20:45 Respiratory Rate 16 07/13/20 20:45 Respiratory Effort Non-Labored 07/13/20 20:48 Blood Pressure 140/95 H 07/13/20 20:45 Pulse Oximetry 98 07/13/20 20:45 Pain Level 8 07/13/20 20:45
--- NOTE | 2020-07-13 21:53 | DI.VRAD_ITS ---
PROCEDURE INFORMATION: Exam: XR Right Shoulder Exam date and time: 07/13/2020 9:08 PM Age: 50 years old Clinical indication: Shoulder; Right; Patient HX: Pain, no known trauma TECHNIQUE: Imaging protocol: XR Right shoulder. Views: 2 or more views. COMPARISON: No relevant prior studies available. FINDINGS: Bones/joints: Mild hypertrophic changes of the acromioclavicular joint are present. A subacromial spur is noted. No acute fracture or dislocation. Soft tissues: There is calcification of soft tissues in the expected location of the supraspinatus tendon. IMPRESSION: 1. Mild AC joint hypertrophy and subacromial spur. 2. Calcific tendinitis versus bursitis. Dictated and Authenticated by: Ashutosh Cramer MD. Ordering:DAMASO Banegas MD
[2020-07-13] MEDS: Ketorolac 15 MG/ML VIAL IM (21:55)
== END 2020-07-13 22:05 | disposition home or self-care (01) ==
PROVIDERS: Emergency Provider Physician Assistant; PCP Registered Nurse
DX: M75.31 Calcific tendinitis of right shoulder (principal)
CPT/HCPCS: 96372; 99284; 73030; 99283; J1885

== ENCOUNTER 2020-08-05 17:08 | Outpatient (REF) | payer MEDICAID, SELFPAY | END 2020-08-05 17:09 | disposition home or self-care (01) | LOC: LBN 17:08 | PROVIDERS: PCP Registered Nurse; Visit Provider Obstetrics & Gynecology | DX: R10.32 Left lower quadrant pain (principal); R82.998 Other abnormal findings in urine | CPT/HCPCS: 87086 ==

== ENCOUNTER 2020-08-25 02:26 | Outpatient (CLI) | payer MEDICAID, SELFPAY ==
--- NOTE | 2020-08-25 06:30 | DI.US_ITS ---
Exam(s) US PELVIS TRANSVAGINAL EXAM: US PELVIS TRANSVAGINAL CLINICAL HISTORY: LLQ PAIN,R10.32. TECHNIQUE: Transabdominal and transvaginal pelvic ultrasound was performed using standard protocol. COMPARISON: US US PELVIS TRANSVAGINAL from 02/21/2020 FINDINGS: KIDNEYS: Kidneys are symmetric in size. No evidence of renal calculi. No evidence of hydronephrosis. No renal mass or cyst identified. UTERUS: Status post hysterectomy. OVARIES: Ovaries were not visualized transabdominally or transvaginally on today's examination. No a dnexal masses identified. CUL-DE-SAC: Free fluid: None. Other: None. IMPRESSION: 1. Normal limited sonographic appearance of the kidneys. 2. Status post hysterectomy. 3. Ovaries not visualized on the current examination transabdominally or transvaginally. No adnexal masses identified on the current examination. DATA REPOSITORY:
== END 2020-08-25 02:46 ==
PROVIDERS: PCP Registered Nurse; Visit Provider Obstetrics & Gynecology
DX: R10.32 Left lower quadrant pain (principal); Z90.710 Acquired absence of both cervix and uterus
CPT/HCPCS: 76830; 76856

== ENCOUNTER 2020-10-08 16:16 | Outpatient (REF) | payer MEDICAID, SELFPAY ==
[2020-10-08 21:21] LABS: Abs Immature Grans 0.04 10^3/uL (0.0-0.06); Absolute Basophil Count 0.07 10^3/uL (0.0-0.2); Absolute Eosinophil Count 0.14 10^3/uL (0.0-0.7); Absolute Lymphocyte Count 2.84 10^3/uL (1.2-3.4); Absolute Monocyte Count 0.69 10^3/uL (0.1-0.8); Basophils % 0.9; Eosinophils % 1.8; HCT 41.2 % (36.0-46.0); HGB 13.3 g/dL (11.2-15.7); Immature Grans % 0.5; Lymphocytes % 35.6; MCH 29.1 pg (27.0-33.0); MCHC 32.3 % (32.0-36.0); MCV 90.2 fL (80-95); MPV 11.8 fL (8.0-11.0); Monocytes % 8.6; Neutrophils % 52.6; Nucleated RBC 0 %; Platelet Count 385 10^3/uL (130-400); RBC 4.57 10^6/uL (3.93-5.22); RDW 13.3 % (11.7-14.6); RDW-SD 43.9 fL; WBC 7.98 10^3/uL (4.4-10.8)
[2020-10-08 21:39] LABS: TSH 0.77 uIU/mL (0.36-3.74)
[2020-10-08 22:05] LABS: COMMENT (LAB VIEW ONLY) 137.76 mg/dL; Microalb ug/mg Crea 3.8 ug/mg Cr
== END 2020-10-08 16:17 | disposition home or self-care (01) ==
LOC: NCHCN 16:16
PROVIDERS: PCP Registered Nurse; Visit Provider Registered Nurse
DX: R53.83 Other fatigue (principal)
CPT/HCPCS: 82043; 82570; 84443; 85025

== ENCOUNTER 2021-02-27 16:40 | Outpatient (REF) | payer MEDICAID, SELFPAY ==
[2021-02-27 20:53] LABS: Calculated LDL 103 mg/dL (<100); Cholesterol 191 mg/dL (<200); HDL Cholesterol 43 mg/dL (40-60); Triglyceride 229 mg/dL (<150)
[2021-03-02 10:39] LABS: HIV-1/2 Ag & Ab Screen Negative (Negative)
[2021-03-02 12:49] LABS: Hepatitis C Ab w Rflx HCV PCR Equivocal (Negative)
[2021-03-04 11:49] LABS: HCV RNA Qualitative Undetected (Undetected)
== END 2021-02-27 16:41 | disposition home or self-care (01) ==
LOC: NCHCN 16:40
PROVIDERS: PCP Registered Nurse; Visit Provider Registered Nurse
DX: E11.9 Type 2 diabetes mellitus without complications (principal); Z11.4 Encounter for screening for human immunodeficiency virus [HIV]; Z11.59 Encounter for screening for other viral diseases
CPT/HCPCS: 80061; 86803; 87389; 87522

== ENCOUNTER 2021-12-08 12:20 | Outpatient (REF) | payer MEDICAID, SELFPAY ==
[2021-12-08 15:00] LABS: Abs Immature Grans 0.03 10^3/uL (0.0-0.06); Absolute Basophil Count 0.04 10^3/uL (0.0-0.2); Absolute Eosinophil Count 0.09 10^3/uL (0.0-0.7); Absolute Lymphocyte Count 2.76 10^3/uL (1.2-3.4); Absolute Monocyte Count 0.55 10^3/uL (0.1-0.8); Absolute Neutrophil Count 3.02 10^3/uL (1.2-6.7); Basophils % 0.6; Eosinophils % 1.4; HCT 41.5 % (36.0-46.0); HGB 13.8 g/dL (11.2-15.7); Immature Grans % 0.5; Lymphocytes % 42.5; MCH 30.5 pg (27.0-33.0); MCHC 33.3 % (32.0-36.0); MCV 92 fL (80-95); MPV 11.9 fL (8.0-11.0); Monocytes % 8.5; Neutrophils % 46.5; Platelet Count 347 10^3/uL (130-400); RBC 4.53 10^6/uL (3.93-5.22); RDW 12.7 % (11.7-14.6); RDW-SD 42.6 fL; WBC 6.49 10^3/uL (4.4-10.8)
[2021-12-08 15:23] LABS: ALT 30 U/L (14-59); AST 27 U/L (15-37); Albumin 3.8 g/dL (3.4-5.0); Alkaline Phosphatase 88 U/L (46-116); Anion Gap 8.9 mmol/L (3-11); BUN 20 mg/dL (7-18); Bilirubin, Total 0.4 mg/dL (0.2-1.0); CO2 27.1 mmol/L (21.0-32.0); CREATININE 0.8 mg/dL (0.55-1.02); Calcium 9.2 mg/dL (8.5-10.1); Chloride 102 mmol/L (98-107); Glucose 93 mg/dL (74-106); Potassium 4.7 mmol/L (3.5-5.1); Sodium 138 mmol/L (136-145); Total Protein 8.1 g/dL (6.4-8.2)
[2021-12-08 16:02] LABS: COMMENT (LAB VIEW ONLY) 58.26 mg/dL; PROTEIN 6.2 mg/dL
[2021-12-08 22:12] LABS: Albumin, Ur < 0.6 mg/dL (See Note); Creatinine, Ur 60.8 mg/dL (See Note)
== END 2021-12-08 12:21 | disposition home or self-care (01) ==
LOC: NCHCN 12:20
PROVIDERS: PCP Registered Nurse; Visit Provider Nurse Practitioner Family
DX: R03.0 Elevated blood-pressure reading, without diagnosis of hypertension (principal); E11.9 Type 2 diabetes mellitus without complications; Z51.81 Encounter for therapeutic drug level monitoring
CPT/HCPCS: 80053; 82043; 82565; 82570; 84156; 85025

== ENCOUNTER 2021-12-30 01:55 | Outpatient (CLI) | payer MEDICAID, SELFPAY ==
--- NOTE | 2021-12-30 18:00 | DI.MAMMO_ITS ---
Exam(s) MAMMO SCREENING EXAM: MAMMO SCREENING CLINICAL HISTORY: SCREENING, Z12.31 TECHNIQUE: Bilateral full field digital CC and MLO mammographic images were obtained with 3D tomosyn thesis and utilizing computer aided detection (CAD). COMPARISON: Available for comparison. FINDINGS: Masses/Architectural Distortion: None seen. Microcalcifications: No suspicious pleomorphic-type are seen. Skin Thickening/Nipple Retraction: None. IMPRESSION: 1. No significant interval change with no specific features of malignancy noted. 2. Unless there is more urgent need, screening mammography is recommended, as per [employer] [employer] guidelines. BI-RADS Category 1 - Negative Breast Density - Category B - Scattered areas of fibroglandular density Breast density category C or D implies that the patient has dense breast tissue. Dense breast tissue is very common and is not abnormal but dense breast tissue can make it harder to find cancer on a ma mmogram. Also, dense breast tissue may increase their breast cancer risk. This information about the result of the mammogram report was provided to the patient to raise their awareness. Use this report when you speak with the patient about their risks for breast cancer, which includes their family hist ory. At that time, you may recommend for more screening tests (Ultrasound or MRI) as they might be us eful based on their risk. A negative radiographic report should not delay biopsy if a dominant or clinically suspicious mass is present. Up to ten percent of cancers are not identified on mammography. A negative report may reinforce clinical impression. Adenosis and dense breasts may obscure an underlying neoplasm. False positive reports average 6 to 10%. Patient will receive a letter notifying them of these results.
== END 2021-12-30 02:15 ==
PROVIDERS: PCP Registered Nurse; Visit Provider Nurse Practitioner Family
DX: Z12.31 Encounter for screening mammogram for malignant neoplasm of breast (principal)
CPT/HCPCS: 77063; 77067

== ENCOUNTER 2022-03-09 13:46 | Outpatient (REF) | payer MEDICAID, SELFPAY ==
[2022-03-09 16:04] LABS: Abs Immature Grans 0.04 10^3/uL (0.0-0.06); Absolute Basophil Count 0.03 10^3/uL (0.0-0.2); Absolute Eosinophil Count 0.05 10^3/uL (0.0-0.7); Absolute Lymphocyte Count 2.23 10^3/uL (1.2-3.4); Absolute Monocyte Count 0.35 10^3/uL (0.1-0.8); Absolute Neutrophil Count 3.82 10^3/uL (1.2-6.7); Basophils % 0.5; Eosinophils % 0.8; HCT 41.2 % (36.0-46.0); HGB 13.7 g/dL (11.2-15.7); Immature Grans % 0.6; Lymphocytes % 34.2; MCH 29.9 pg (27.0-33.0); MCHC 33.3 % (32.0-36.0); MCV 90 fL (80-95); MPV 11.5 fL (8.0-11.0); Monocytes % 5.4; Neutrophils % 58.5; Platelet Count 310 10^3/uL (130-400); RBC 4.58 10^6/uL (3.93-5.22); RDW 12.8 % (11.7-14.6); RDW-SD 42.4 fL; WBC 6.52 10^3/uL (4.4-10.8)
[2022-03-09 16:45] LABS: ALT 32 U/L (14-59); AST 20 U/L (15-37); Alkaline Phosphatase 89 U/L (46-116); BUN 18 mg/dL (7-18); Bilirubin, Total 0.3 mg/dL (0.2-1.0); CREATININE 0.8 mg/dL (0.55-1.02); Calcium 8.9 mg/dL (8.5-10.1); Calculated LDL 120 mg/dL (<100); Chloride 103 mmol/L (98-107); Cholesterol 189 mg/dL (<200); Glucose 91 mg/dL (74-106); HDL Cholesterol 48 mg/dL (40-60); Potassium 4.8 mmol/L (3.5-5.1); Sodium 138 mmol/L (136-145); TSH 0.79 uIU/mL (0.36-3.74); Total Protein 7.4 g/dL (6.4-8.2); Triglyceride 109 mg/dL (<150); Vitamin B12 873 pg/mL (193-986)
[2022-03-09 17:56] LABS: Vitamin D 25 Total 23.8 ng/mL (30-100)
== END 2022-03-09 13:47 | disposition home or self-care (01) ==
LOC: NCHCN 13:46
PROVIDERS: PCP Registered Nurse; Visit Provider Nurse Practitioner Family
DX: E11.9 Type 2 diabetes mellitus without complications (principal); R53.83 Other fatigue; R74.8 Abnormal levels of other serum enzymes; Z51.81 Encounter for therapeutic drug level monitoring; Z63.79 Other stressful life events affecting family and household
CPT/HCPCS: 80053; 80061; 82306; 82607; 84443; 85025

== ENCOUNTER 2022-04-21 03:28 | Outpatient (CLI) | payer MEDICAID, SELFPAY ==
--- NOTE | 2022-04-21 | DI.MRI_ITS ---
Exam(s) MR ANGIO BRAIN WO CLINICAL HISTORY: LT TRANSIENT VISUAL FIELD LOSS, H53.122,? TIA, H/O DIABETES. TECHNIQUE: 3D myxl-gp-yilxyl study was performed without contrast. COMPARISON: None. FINDINGS: Carotid Arteries: Petrous: Normal. Cavernous: Normal. Cerebral: Normal. Middle Cerebral Arteries: Right: No aneurysm or significant stenosis. Left: No aneurysm or significant stenosis. Anterior Cerebral Arteries: Right: No aneurysm or significant stenosis. Left: No aneurysm or significant stenosis. Posterior cerebral arteries: Right: No aneurysm or significant stenosis Left: No aneurysm or significant stenosis Vertebral Arteries: Right: No aneurysm or significant stenosis. No dissection. Left: No aneurysm or significant stenosis. No dissection.. Basilar Artery: No aneurysm or significant stenosis. Small Vessels: No evidence of beading. IMPRESSION: Normal MRA examination of the [place]. DATA REPOSITORY:
--- NOTE | 2022-04-21 | DI.MRI_ITS ---
Exam(s) MR ANGIO NECK WO EXAM: MR ANGIO NECK WO CLINICAL HISTORY: LT TRANSIENT VISUAL FIELD LOSS,H53.122, ? TIA, H/O DIABETES. TECHNIQUE: Multiplanar multisequence MRA of the Neck was performed. COMPARISON: MR MR ANGIO BRAIN WO from 04/21/2022 FINDINGS: Common Carotid: Right: No dissection, occlusion or significant stenosis. Left: No dissection, occlusion or significant stenosis. External Carotid: Right: No evidence of occlusion or significant stenosis. Left: No evidence of occlusion or significant stenosis. Internal Carotid: Right: No dissection, occlusion or significant stenosis. Left: No dissection, occlusion or significant stenosis. Vertebral Artery: Right: No dissection, occlusion or significant stenosis. Left: No dissection, occlusion or significant stenosis. IMPRESSION: No evidence of dissection, occlusion or significant stenosis. DATA REPOSITORY:
--- NOTE | 2022-04-21 | DI.MRI_ITS ---
Exam(s) MR BRAIN WO/W EXAM: MR BRAIN WO/W CLINICAL HISTORY: LT TRANSIENT VISUAL LOSS,H53.122,? TIA,H/O DIABETES. TECHNIQUE: Multiplanar multisequence MRI of the brain was performed. CONTRAST MATERIAL: IV Contrast: 20 ML of Dotarem contrast administered. COMPARISON: No exams were available for comparison FINDINGS: VENTRICLES AND EXTRA AXIAL SPACES: Normal in size and morphology for the patient's age. HEMORRHAGE: None. CEREBRAL PARENCHYMA: No focus of restricted diffusion to suggest acute infarct. No space-occupying le walker identified. MIDLINE SHIFT: None. BRAINSTEM/CEREBELLUM: Normal. ENHANCEMENT: No suspicious enhancement identified. VISUALIZED PARANASAL SINUSES/MASTOIDS: Clear. OTHER FINDINGS: The sella appears somewhat expanded with inferior compression of the pituitary by flu id within the sella. No pituitary mass. IMPRESSION: The pituitary gland appears compressed by fluid within the sella which also appears mildly expanded. DATA REPOSITORY:
[2022-04-21] MEDS: Normal Saline Flush 10 ML SYR IVP (10:38)
[2022-04-21] MEDS: Gadoterate meglumine 20 ML VIAL IVP (10:39)
== END 2022-04-21 03:48 ==
PROVIDERS: PCP Registered Nurse; Visit Provider Nurse Practitioner Family
DX: H53.122 Transient visual loss, left eye (principal)
CPT/HCPCS: 70544; 70547; 70553

== ENCOUNTER 2022-09-13 17:52 | Outpatient (REF) | payer MEDICAID, SELFPAY ==
[2022-09-13 19:38] LABS: Vitamin D 25 Total 29.1 ng/mL (30-100)
[2022-09-15 12:12] LABS: Lyme Ab w Rflx to Lyme Confirm Negative (Negative)
[2022-09-15 14:01] LABS: Chlamydia Result Negative (Negative); GC Result Negative (Negative)
[2022-09-15 14:26] LABS: Hepatitis C Ab w Rflx HCV PCR Negative (Negative)
[2022-09-15 17:04] LABS: HIV-1/2 Ag & Ab Screen Negative (Negative)
== END 2022-09-13 17:53 | disposition home or self-care (01) ==
LOC: NCHCN 17:52
PROVIDERS: PCP Nurse Practitioner Family; Visit Provider Nurse Practitioner Family
DX: Z11.59 Encounter for screening for other viral diseases (principal); Z11.4 Encounter for screening for human immunodeficiency virus [HIV]; Z11.3 Encounter for screening for infections with a predominantly sexual mode of transmission; E55.9 Vitamin D deficiency, unspecified; Z86.19 Personal history of other infectious and parasitic diseases; E11.9 Type 2 diabetes mellitus without complications
CPT/HCPCS: 82306; 86803; 87389; 87491; 87591; 86618

== ENCOUNTER 2023-04-19 16:29 | Outpatient (REF) | payer OTHER, SELFPAY ==
[2023-04-19 18:36] LABS: HCT 40.4 % (36.0-46.0); HGB 13.4 g/dL (11.2-15.7); MCH 30.2 pg (27.0-33.0); MCHC 33.2 % (32.0-36.0); MCV 91 fL (80-95); MPV 12.2 fL (8.0-11.0); Platelet Count 339 10^3/uL (130-400); RBC 4.43 10^6/uL (3.93-5.22); RDW 12.8 % (11.7-14.6); RDW-SD 42.8 fL; WBC 7.32 10^3/uL (4.4-10.8)
[2023-04-19 18:48] LABS: ALT 35 U/L (14-59); AST 17 U/L (15-37); Albumin 3.8 g/dL (3.4-5.0); Alkaline Phosphatase 85 U/L (46-116); Anion Gap 8.7 mmol/L (3-11); BUN 14 mg/dL (7-18); Bilirubin, Total 0.4 mg/dL (0.2-1.0); CO2 27.3 mmol/L (21.0-32.0); CREATININE 0.7 mg/dL (0.55-1.02); Calcium 9.1 mg/dL (8.5-10.1); Calculated LDL 111 mg/dL (<100); Chloride 105 mmol/L (98-107); Cholesterol 174 mg/dL (<200); Estimated GFR 102.71 (mL/min/1.73m2); Glucose 93 mg/dL (74-106); HDL Cholesterol 48 mg/dL (40-60); Potassium 4.8 mmol/L (3.5-5.1); Sodium 141 mmol/L (136-145); Total Protein 7.3 g/dL (6.4-8.2); Triglyceride 78 mg/dL (<150)
[2023-04-19 19:09] LABS: Vitamin D 25 Total 31.2 ng/mL (30-100)
[2023-04-19 19:26] LABS: Hemoglobin A1C 5.6 % (<5.7)
== END 2023-04-19 16:30 | disposition home or self-care (01) ==
LOC: NCHCN 16:29
PROVIDERS: PCP Nurse Practitioner Family; Visit Provider Nurse Practitioner Family
DX: E11.9 Type 2 diabetes mellitus without complications (principal); E55.9 Vitamin D deficiency, unspecified; Z13.220 Encounter for screening for lipoid disorders
CPT/HCPCS: 80053; 80061; 82306; 85027; 83036

== ENCOUNTER → 2023-06-23 02:43 | Outpatient (CLI) | payer OTHER, SELFPAY ==
--- NOTE | 2023-06-23 08:15 | DI.RAD_ITS ---
Exam(s) XR FOOT LT COMPLETE EXAM: XR FOOT LT COMPLETE CLINICAL HISTORY: painful bunion, s/p repair,m21.612. TECHNIQUE: 2D digital imaging was performed. Three views. COMPARISON: CR XR FOOT RT COMPLETE from 06/23/2023 FINDINGS: BONES: No acute fracture is present. No bony destructive lesion is seen. Prior bunionectomy. Two sc rews are seen across the 1st tarsal metatarsal joint. Small heel spurs. JOINTS: No dislocation present. Degenerative changes at tarsal metatarsal joints. SOFT TISSUE: Normal. IMPRESSION: Postsurgical and degenerative changes. DATA REPOSITORY: RADIATION DOSE DELIVERED:
--- NOTE | 2023-06-23 08:15 | DI.RAD_ITS ---
Exam(s) XR FOOT RT COMPLETE EXAM: XR FOOT RT COMPLETE CLINICAL HISTORY: PAINFUL bunion, s/p bunionectomy REPAIR,M21.609. TECHNIQUE: 2D digital imaging was performed. Three views. COMPARISON: No exams were available for comparison FINDINGS: BONES: 2 screws are noted in the 1st metatarsal. No acute fracture is present. No bony destructive l esion is seen. Heel spurs. JOINTS: No dislocation present. Moderate hallux valgus. Valgus deviation of the 2nd and 3rd toes. Degenerative changes are noted at the tarsal metatarsal joints. Mild degenerative changes 1st MTP isauro int.. SOFT TISSUE: Normal. IMPRESSION: Postsurgical and degenerative changes. DATA REPOSITORY: RADIATION DOSE DELIVERED:
== END ==
PROVIDERS: PCP Nurse Practitioner Family; Visit Provider Podiatrist
DX: M21.612 Bunion of left foot (principal); Z98.890 Other specified postprocedural states
CPT/HCPCS: 73630

== ENCOUNTER 2024-05-02 08:11 | Emergency (ER) | payer OTHER, SELFPAY ==
[2024-05-02] VITALS (7 sets, daily range): BP systolic 147–168; BP diastolic 86–137; PULSE 63–81; RESP 12; TEMP 36.7; O2SAT 94–98
--- NOTE | 2024-05-02 08:30 | DI.CT_ITS ---
Exam(s) CT ABDOMEN PELVIS W EXAM: CT ABDOMEN PELVIS W CLINICAL HISTORY: epigastric/RUQ tenderness, LUQ tenderness. TECHNIQUE: Imaging Protocol: Axial computed tomography images with coronal and sagittal reformatted images were created and reviewed CONTRAST MATERIAL: Intravenous: Omnipaque-350 100cc Oral: None COMPARISON: No exams were available for comparison FINDINGS: VISUALIZED LUNG BASES: No nodules nor pleural effusions evident. ABDOMEN: There is no ascites. LIVER: Liver is hypodense implying steatosis. There is relative sparing of the caudate lobe which ex hibits normal postcontrast density. There are no discrete focal hepatic lesions nor dilatation of in trahepatic ducts. GALLBLADDER/BILIARY: No obvious gallbladder pathology. CBD is not dilated. PANCREAS: There is very subtle streaking around the pancreatic head which may indicate an element of pancreatitis. The remainder of the pancreas appears unremarkable. The pancreatic duct is not dilate d. There are no peripancreatic fluid collections. SPLEEN: Spleen is not enlarged. No obvious intrasplenic lesions. Splenic and portal veins are paten t. ADRENALS: Small sub cm nodule in the genu of the left adrenal gland is probably an incidental small a denoma. Right adrenal gland unremarkable. KIDNEYS: No solid renal masses. No calculi nor hydronephrosis.. ABDOMINAL AORTA: Abdominal aorta is not enlarged. LYMPH NODES:There is no retroperitoneal nor paraaortic adenopathy. ABDOMINAL WALL: No evidence of significant anterior abdominal wall nor inguinal hernia. GI: There is no evidence of bowel obstruction, free air, nor abscess. There is diverticulosis of the transverse and left colon and sigmoid without evidence of obvious acut e diverticulitis. PELVIS: GI: No evidence of appendicitis.No evidence of sigmoid diverticulitis. LYMPH NODES: There is no intrapelvic nor inguinal adenopathy. REPRODUCTIVE: Uterus is surgically absent. There are no abnormal adnexal masses. URINARY BLADDER: Mildly distended. Mild cystocele. No other bladder findings. Pelvic ureters are n ot dilated. OSSEOUS: No fractures and no significant osseous lesions. Benign intraosseous hemangioma is noted in the left side of the L1 vertebral body. There is mild deg enerative anterolisthesis L5 upon S1. IMPRESSION: 1. There is mild streaking around the pancreatic head and uncinate process concerning for pancreatiti s. The pancreatic duct is not dilated. The remainder of the pancreas appears unremarkable. There a re no Jazz pancreatic fluid collections. There are no pancreatic calcifications. 2. Hepatic steatosis with relative sparing of the caudate lobe. No splenomegaly. No ascites. 3. Previous hysterectomy. 4. Mild urinary bladder cystocele here and mild-moderate bladder distension. Findings discussed with ER provider 05/02/2024 10:15 a.m. RADIATION DOSE DELIVERED: 726.87mGy.cm Total DLP DATA REPOSITORY: All CT scans at this facility are submitted to the National Radiology Data Registry (NRDR) Dose Index Registry (DIR) with the [employer] (A[employer]). RADIATION OPTIMIZATION: All CT scans at this facility use at least one of these dose optimization te chniques: automated exposure control; mA and/or kV adjustment per patient size (includes targeted exa ms where dose is matched to clinical indication); or iterative reconstruction.
--- NOTE | 2024-05-02 08:41 | ED.GENADUL_ITS ---
Discharge Plan Disposition Patient Disposition: Home Condition: Stable Discharge Details Clinical Impression: Duodenitis Primary Care Provider: JOSHUA MILLS ED Provider: Tyrel Pinzon Home Meds and New Rx's Prescriptions: Continued fluoride (sodium) [SF 5000 Plus] 1.1 % cream 1 applic dental DAILY Advil PM Liqui-Gels 200-25 mg capsule 2 cap PO QHS PRN metformin 1,000 mg tablet 1,000 mg PO DAILY Ozempic 2 mg/dose (8 mg/3 mL) pen injector 2 mg subcut QWEEK omeprazole 20 mg capsule,delayed release(DR/EC) 20 mg PO DAILY PRN Discharge Instructions Instructions: Gastritis, Pancreatitis (DC), Oxycodone Additional Instructions: You were seen in the emergency department for your centralized abdominal pain, there is some evidence on your CT of some infection around either the pancreas or the duodenum, your pancreas enzymes are normal I do suspect you may have a small duodenal ulcer, please start taking your omeprazole once daily, this should improve symptoms if the etiology is an ulcer. Please discontinue Aleve and other NSAIDs like ibuprofen and take 1000 mg of Tylenol every 6 hours for pain, use the breakthrough oxycodone tablets for the next couple days for any pain and may help you sleep better at night. Perform bowel rest including clear fluid diet for the next couple of days, if you must eat try and avoid complex carbohydrates. I have placed you on a list for endoscopy at surgery office, please return to the emergency department for severe increase in abdominal pain, intractable nausea or vomiting, fever, failure to improve in 2 weeks with this new medication regimen. Referrals: [facility] [Provider Group] JOSHUA MILLS, POWER TOOL REPAIR TECHNICIAN [Primary Care Provider] - Discharge Data Discharge Date/Time-TO BE ENTERED AT DEPARTURE: 05/02/24 11:10 HPI General Date/Time Provider Initiated Documentation: 05/02/24 08:30 . HPI Narrative: 54 year-old female presents to ED today by POV/ambulating with a chief complaint of dull aching upper abdominal pain with onset on Tuesday. Quality described as upper abdominal pain, denies nausea/vomiting/diarrhea, no radiation to chest pain, shortness of breath, cough, hemoptysis, black/bloody stools. Severity is described as moderate. Palliating factors include nothing specific attempted. Provoking factors include nothing specific. Events leading up to the incident/Associated Symptoms: Patient does have prilosec on a PRN basis. Patient not anticoagulated. Related Data Home Medications ?Medication ?Instructions ?Recorded ?Confirmed omeprazole 20 mg capsule,delayed 20 mg PO DAILY PRN 08/05/20 05/02/24 release semaglutide 2 mg/dose (8 mg/3 mL) 2 mg subcut QWEEK 07/05/22 05/02/24 subcutaneous pen injector (Ozempic) fluoride (sodium) 1.1 % dental 1 applic dental DAILY 07/04/23 05/02/24 cream (SF 5000 Plus) ibuprofen 200 mg-diphenhydramine 2 cap PO QHS PRN 07/04/23 05/02/24 HCl 25 mg capsule (Advil PM Liqui-Gels) metformin 1,000 mg tablet 1,000 mg PO DAILY 07/11/23 05/02/24 Allergies Allergy/AdvReac Type Severity Reaction Status Date / Time morphine AdvReac vomiting Verified 05/02/24 08:16 Sulfa (Sulfonamide AdvReac vomiting Verified 05/02/24 08:16 Antibiotics) General Stated Complaint: Abd Prob SHASHI: 3 Review of Systems All systems reviewed & are unremarkable except as noted in HPI and below Exam Narrative Exam Narrative: GENERAL APPEARANCE: Well-nourished, non-toxic, awake and alert, atraumatic, no acute distress. SKIN: Warm, pink, dry, intact, without rashes/lesions/ulcerations. HEAD: Normocephalic, atraumatic, normal hair distribution for gender/age. EYES: Normal conjunctiva, no exudates on lids/lashes. ENT: Nares patent, no circumoral cyanosis, no facial swelling NECK: Supple, trachea midline, painless cervical ROM. LUNGS/CHEST: Lungs CTA bilaterally, non-labored respirations, normal A/P diameter, symmetrical expansion, no chest wall deformity HEART (CV/PV): Regular rate and rhythm without murmur, no peripheral edema, no JVD. ABDOMEN: Soft, non-distended, no guarding, epigastric tenderness without overt Bansal sign, no McBurney's point tenderness, no left-sided abdominal tenderness. MSK: Normal ROM, no swelling/deformity to bilateral UEs or LEs, moving all extremities without weakness, no cyanosis, spine midline without tenderness, normal curvature. NEURO: Mental Status AAOx4 - alert to person, place, time, events No facial droop, no forehead involvement. Motor: No focal weakness - strength 5/5 in bilateral UEs and LEs, proximal and distal, symmetric. Sensory: sensation intact to light touch globally. Gait normal: patient ambulated without ataxia into ED room. PSYCH: euthymic, cooperative, pleasant, appropriate speech Course Vital Signs Vital signs: Vital Signs Temperature 36.7 C 05/02/24 08:11 Pulse 81 05/02/24 08:11 Respiratory Rate 12 05/02/24 08:11 Blood Pressure 168/93 H 05/02/24 08:11 Pulse Oximetry 98 05/02/24 08:11 Temperature 36.7 C 05/02/24 08:11 Temperature Source Oral 05/02/24 08:11 Pulse 81 05/02/24 08:11 Respiratory Rate 12 05/02/24 08:11 Blood Pressure 168/93 H 05/02/24 08:11 Blood Pressure Position Sitting 05/02/24 08:11 Pulse Oximetry 98 05/02/24 08:11 Oxygen Delivery Method Room Air 05/02/24 08:11 Oxygen Flow Rate 0 05/02/24 08:11 Pain Level 8 05/02/24 08:11 Medical Decision Making This dictation utilizes [id number] dictation software and may contain unedited grammatical errors. 54 year-old female presents to ED today by POV/ambulating with a chief complaint of dull aching upper abdominal pain with onset on Tuesday. Quality described as upper abdominal pain, denies nausea/vomiting/diarrhea, no radiation to chest pain, shortness of breath, cough, hemoptysis, black/bloody stools. Severity is described as moderate. Palliating factors include nothing specific attempted. Provoking factors include nothing specific. Events leading up to the incident/Associated Symptoms: Patient does have prilosec on a PRN basis. Patients' medical history: Uterine fibroids, obesity, history of elevated LFTs, history of tubal ligation and hysterectomy, heartburn, T2DM. Family and social history: Noncontributory. Pertinent exam findings / vital signs include epigastric tenderness without overt Bansal sign, no McBurney's point tenderness, no left-sided abdominal tenderness, benign cardiopulmonary status, nontoxic and afebrile in no acute distress. Differential / pathologies of concern include gastritis, pancreatitis, biliary tree pathology, unlikely sepsis or respiratory distress, unlikely SBO or other acute surgical pathology. Diagnostic studies of: -CBC, CMP, magnesium, lipase, UA, CT ABD/pelvis with contrast. -CBC is unremarkable -CMP is unremarkable -Magnesium within normal limits -Lipase negative -UA unremarkable -CT shows some evidence of inflammatory changes around the head of the pancreas or duodenum Interventions of: -Tylenol, Toradol, Zofran, oxycodone to go. ED Course/Assessment/Plan: 54-year-old female presents with epigastric tenderness ongoing since Tuesday without nausea or vomiting, labs are unremarkable for infectious etiology, CT shows some mild fat streaking around the head of the pancreas or duodenum as source of the inflammation, I do suspect with her discomfort with the eating and upper abdominal pain that she has a duodenum-itis, her pancreas enzymes are normal this could be an early pancreatitis but I did funeral prearrangement counselor her to start taking her Prilosec daily and to seek a referral to surgery outpatient for endoscopy planning, patient will return for any intractable nausea or vomiting, severe increase in pain especially fever, respiratory distress. Findings not consistent with infectious etiology, biliary tree pathology, SBO or other surgical pathology. Disposition of duodenitis. Patient verbalized understanding of the plan and return to ED criteria and engaged in shared decision making. Medical Records Medical records reviewed: Yes I reviewed the patient's medical records. Imaging Data Radiologic Study: Attestation: I personally reviewed and interpreted this imaging study as follows: Imaging: CT Scan Radiologist's impression: EXAM: CT ABDOMEN PELVIS W CLINICAL HISTORY: epigastric/RUQ tenderness, LUQ tenderness. TECHNIQUE: Imaging Protocol: Axial computed tomography images with coronal and sagittal reformatted images were created and reviewed CONTRAST MATERIAL: Intravenous: Omnipaque-350 100cc Oral: None COMPARISON: No exams were available for comparison FINDINGS: VISUALIZED LUNG BASES: No nodules nor pleural effusions evident. ABDOMEN: There is no ascites. LIVER: Liver is hypodense implying steatosis. There is relative sparing of the caudate lobe which exhibits normal postcontrast density. There are no discrete focal hepatic lesions nor dilatation of intrahepatic ducts. GALLBLADDER/BILIARY: No obvious gallbladder pathology. CBD is not dilated. PANCREAS: There is very subtle streaking around the pancreatic head which may indicate an element of pancreatitis. The remainder of the pancreas appears unremarkable. The pancreatic duct is not dilated. There are no peripancreatic fluid collections. SPLEEN: Spleen is not enlarged. No obvious intrasplenic lesions. Splenic and portal veins are patent. ADRENALS: Small sub cm nodule in the genu of the left adrenal gland is probably an incidental small adenoma. Right adrenal gland unremarkable. KIDNEYS: No solid renal masses. No calculi nor hydronephrosis.. ABDOMINAL AORTA: Abdominal aorta is not enlarged. LYMPH NODES:There is no retroperitoneal nor paraaortic adenopathy. ABDOMINAL WALL: No evidence of significant anterior abdominal wall nor inguinal hernia. GI: There is no evidence of bowel obstruction, free air, nor abscess. There is diverticulosis of the transverse and left colon and sigmoid without e vidence of obvious acute diverticulitis. PELVIS: GI: No evidence of appendicitis.No evidence of sigmoid diverticulitis. LYMPH NODES: There is no intrapelvic nor inguinal adenopathy. REPRODUCTIVE: Uterus is surgically absent. There are no abnormal adnexal masses. URINARY BLADDER: Mildly distended. Mild cystocele. No other bladder findings. Pelvic ureters are not dilated. OSSEOUS: No fractures and no significant osseous lesions. Benign intraosseous hemangioma is noted in the left side of the L1 vertebral body. There is mild degenerative anterolisthesis L5 upon S1. IMPRESSION: 1. There is mild streaking around the pancreatic head and uncinate process concerning for pancreatitis. The pancreatic duct is not dilated. The remainder of the pancreas appears unremarkable. There are no Ajzz pancreatic fluid collections. There are no pancreatic calcifications. 2. Hepatic steatosis with relative sparing of the caudate lobe. No splenomegaly. No ascites. 3. Previous hysterectomy. 4. Mild urinary bladder cystocele here and mild-moderate bladder distension. Findings discussed with ER provider 05/02/2024 10:15 a.m. Lab Data Lab results reviewed: Yes I reviewed the patient's lab results. Labs: Laboratory Tests Range/Units 05/02/24 05/02/24 08:59 10:25 WBC (4.4-10.8) 10^3/uL 9.73 RBC (3.93-5.22) 10^6/uL 4.50 Hgb (11.2-15.7) g/dL 13.7 Hct (36.0-46.0) % 41.3 MCV (80-95) fL 92 MCH (27.0-33.0) pg 30.4 MCHC (32.0-36.0) % 33.2 RDW (11.7-14.6) % 12.3 Plt Count (130-400) 10^3/uL 325 MPV (8.0-11.0) fL 11.1 H Immature Gran % % 0.3 Neutrophils % % 65.0 Lymphocytes % % 21.8 Monocytes % % 9.7 Eosinophils % % 2.5 Basophils % % 0.7 Nucleated RBC % (0.0-0.3) % 0.0 Absolute Neutrophils (1.2-6.7) 10^3/uL 6.33 Absolute Lymphocytes (1.2-3.4) 10^3/uL 2.12 Absolute Monocytes (0.1-0.8) 10^3/uL 0.94 H Absolute Eosinophils (0.0-0.7) 10^3/uL 0.24 Absolute Basophils (0.0-0.2) 10^3/uL 0.07 Sodium (136-145) mmol/L 140 Potassium (3.5-5.1) mmol/L 4.4 Chloride (98-107) mmol/L 107 Carbon Dioxide (21.0-32.0) mmol/L 28.6 Anion Gap (3-11) mmol/L 4.4 BUN (7-18) mg/dL 14 Creatinine (0.55-1.02) mg/dL 0.7 Est GFR (CKD-EPI 2020) (mL/min/1.73m2) 102.07 Glucose (74-106) mg/dL 111 H Calcium (8.5-10.1) mg/dL 9.3 Magnesium (1.8-2.4) mg/dL 1.8 Total Bilirubin (0.2-1.0) mg/dL 0.45 AST (15-37) U/L 17 ALT (14-59) U/L 32 Alkaline Phosphatase (46-116) U/L 82 Total Protein (6.4-8.2) g/dL 7.8 Albumin (3.4-5.0) g/dL 3.8 Lipase (<78) U/L 50 Urine Color (Yellow) Yellow Urine Clarity (Clear) Clear Urine pH (5-8) 6.0 Ur Specific Buford (1.005-1.025) 1.010 Urine Protein (Neg-Trace) mg/dL Negative Urine Ketones (Negative) mg/dL Negative Urine Blood (Negative) Trace-intact H Urine Nitrite (Negative) Negative Urine Bilirubin (Negative) Negative Urine Urobilinogen (Up to 0.2) mg/dL 0.2 Ur Leukocyte Esterase (Negative) Negative Urine RBC (0-2) HPF 3-5 H Urine WBC (0-5) HPF 0-2 Ur Epithelial Cells (Negative) HPF Rare Urine Crystals (Negative) HPF Negative Urine Bacteria (Negative) HPF Few Urine Casts (Negative) LPF Negative Urine Mucus (Negative) Negative Urine Other (Negative) Negative Ur Culture Indicated? No Urine Glucose (Negative) mg/dL Negative Quality:SDOH Health Related Social Needs: No Data to Display PFSH All Active Problems (Updated 05/02/24 @ 10:35 by ARLENE Sheridan) Duodenitis (Acute) Metatarsus adductus of right foot (Acute) Hallux valgus (acquired), right foot (Acute) Dyslipidemia (Acute) Heartburn (Acute) Type 2 diabetes mellitus (Acute) Bunion, right foot (Acute) Transient visual loss, left eye (Acute) Vitamin D deficiency (Acute) Left-sided headache (Acute) Calcific tendinitis (Acute) Pelvic organ prolapse quantification stage 2 cystocele (Chronic) Medical History Uterine fibroid Bunion of left foot Urinary incontinence, mixed Stress at home Female bladder prolapse Ganglion cyst Obesity Elevated blood-pressure reading without diagnosis of hypertension Bilateral leg pain Hip pain, bilateral Hx of Lyme disease Elevated liver enzymes Fatigue Rash and other nonspecific skin eruption Medication monitoring encounter Transient visual loss Headache Left lower quadrant pain Fibroids Mixed urinary incontinence due to female genital prolapse Thickened endometrium Cervical polyp Surgical History History of tonsillectomy and adenoidectomy H/O myomectomy Hx of hysterectomy, total S/P laparoscopic assisted vaginal hysterectomy (LAVH) History of tubal ligation History of reversal of tubal ligation History of bunionectomy Social History Smoking/Tobacco Use Status: Never Smoking risk assessment performed?: Yes Alcohol Intake: never Drug use: Never Substance use type: does not use Housing: house Do you feel safe at home: Yes Do you feel safe in your relationship?: Yes
[2024-05-02 09:07] LABS: Abs Immature Grans 0.03 10^3/uL (0.0-0.06); Absolute Basophil Count 0.07 10^3/uL (0.0-0.2); Absolute Eosinophil Count 0.24 10^3/uL (0.0-0.7); Absolute Lymphocyte Count 2.12 10^3/uL (1.2-3.4); Absolute Monocyte Count 0.94 10^3/uL (0.1-0.8); Absolute Neutrophil Count 6.33 10^3/uL (1.2-6.7); Basophils % 0.7 %; Eosinophils % 2.5 %; HCT 41.3 % (36.0-46.0); HGB 13.7 g/dL (11.2-15.7); Immature Grans % 0.3 %; Lymphocytes % 21.8 %; MCH 30.4 pg (27.0-33.0); MCHC 33.2 % (32.0-36.0); MCV 92 fL (80-95); MPV 11.1 fL (8.0-11.0); Monocytes % 9.7 %; Platelet Count 325 10^3/uL (130-400); RDW 12.3 % (11.7-14.6); RDW-SD 41.4 fL; WBC 9.73 10^3/uL (4.4-10.8)
[2024-05-02] MEDS: Ketorolac 15 MG/ML VIAL IVP (09:11)
[2024-05-02] MEDS: ACETAMINOPHEN 1,000 MG/100 ML BAG 400 MG IVPB (09:12)
[2024-05-02] MEDS: Ondansetron 4 MG/2 ML VIAL IVP (09:12)
[2024-05-02 09:22] LABS: ALT 32 U/L (14-59); AST 17 U/L (15-37); Albumin 3.8 g/dL (3.4-5.0); Alkaline Phosphatase 82 U/L (46-116); Anion Gap 4.4 mmol/L (3-11); BUN 14 mg/dL (7-18); Bilirubin, Total 0.45 mg/dL (0.2-1.0); CO2 28.6 mmol/L (21.0-32.0); CREATININE 0.7 mg/dL (0.55-1.02); Calcium 9.3 mg/dL (8.5-10.1); Chloride 107 mmol/L (98-107); Estimated GFR 102.07 (mL/min/1.73m2); Glucose 111 mg/dL (74-106); Lipase 50 U/L (<78); Magnesium 1.8 mg/dL (1.8-2.4); Potassium 4.4 mmol/L (3.5-5.1); Sodium 140 mmol/L (136-145); Total Protein 7.8 g/dL (6.4-8.2)
[2024-05-02] MEDS: Omnipaque 350 MG/ML 100 ML BTL IJ (09:51)
[2024-05-02] MEDS: Normal Saline - Diluent 50 ML VIAL IJ (09:52)
--- OUTSIDE RECORDS SUMMARY | 2024-05-02 10:25 | XMS_ITS | Encounter Summary ---
Author Organization [facility] Address [address] [place] [address] Care Team Providers Care Sales And Marketing Coordinator Name Role Phone Shaka Younger MD Primary Care Provider [phone] Encounter Details Date Type Department Care Team (Late st Contact Info) Description 01/11/2020 Lab Requisition [facility] Pathology & Laboratory Medicine - [address] [address] Elaine Pal, DEVICE PROCESSING ENGINEER [address] [place] [address] Encounter for general adult medical examination without abnormal findings; Encounter for screening for malignant neoplasm of cervix Social History Tobacco Use Types Packs/Day Years Used Date Smoking Tobacco: Never Smokeless Tobacco: Never Interpersonal Safety Answer Date Record ed Physically Hurt Never 10/21/2019 Verbally Threaten Not on file 10/21/2019 Comments Unknown Sex and Gender Information Value Date Recorded Sex Assigned at Not on file Legal Sex Female 18:13 EST Gender Identity Not on file Sexual Orientation Not on file documented as of this encounter Plan of Treatment Not on file documented as of this encounter Procedures Procedure Name Priority Date/Time Associated Diagnosis Comments PAP TEST Today 01/10/2020 9:15 EDT Encounter for general adult medical examination without abnormal findings Encounter for screening for malignant neoplasm of cervix CHLAMYDIA/N. GONORRHOEAE AMPLIFIED NUCLEIC ACID, THINPREP Today 01/10/2020 9:15 EDT HPV DNA DETECTION WITH GENOTYPING, PCR Today 01/10/2020 9:15 EDT Encounter for general adult medical examination without abnormal findings Encounter for screening for malignant neoplasm of cervix documented in this encounter Results * HUMAN PAPILLOMAVIRUS (HPV) DETECTION-HIGH RISK TYPES (01/10/2020 9:15 EDT) HPV other High Risk types, PCR Negative Negative 02/13/2020 8:05 [facility] Comment:No E6 or E7 mRNA is detected from HPV types 16,18,31,33,35,39,45,51,52,56,58,59,66, and 68 by zookeeper mediated amplification. Papanicolaou smear specimen (specimen) CERVIX UTERI STRUCTURE / Unknown 01/10/2020 9:15 EDT 02/12/2020 13:01 EST us Elaine Pal DEVICE PROCESSING ENGINEER MICROBIOLOGY - GENERAL O RDERABLES Final Result Performing Organization Address City/State/[facility] Co de Phone Number [facility] [address] [place] [phone] * PAP TEST (01/10/2020 9:15 EDT) Specimens A. Cervix and/or Endocervix , ThinPrep Imaging System with Manual Evaluation 02/13/2020 8:05 [facility] Specimen Adequacy Satisfactory for Evaluation - transformation zone component present Scant due to excessive blood Scant squamous epithelial component, contamination present, possibly lubricant 02/13/2020 8:05 [facility] General Categorization Negative for intraepithelial lesion or malignancy 02/13/2020 8:05 [facility] Educational Comments An additional slide was prepared and evaluated. 02/13/2020 8:05 [facility] Attestation . 02/13/2020 8:05 [facility] at 0805 Clinical History See below 02/13/20 8:05 [facility] HPV The result for the Human Papillomavirus (HPV) Detection-High Risk Types is Negative. No E6 or E7 mRNA is detected from HPV types 16,18,31,33,35,39 ,45,51,52,56,58,5 9,66, and 68 by zookeeper mediated amplification.Tracie ting was performed on specimen [id number] and was resulted on 02/13/2020 0756 EST by CAITLYN, LAB INSTRUMENT RESULTS IN 02/13/2020 8:05 EST [facility] Performing Lab [facility] 02/13/2020 8:05 EST [facility] Scanned Images 02/13/2020 8:05 EST [facility] Papanicolaou smear specimen (specimen) CERVIX UTERI STRUCTURE / Unknown 01/10/2020 9:15 EDT 01/14/2020 12:41 EDT Elaine Pal APRN PATHOLOGY ORDERABLES Fin al Result Performing Organization Address [facility] Co de Phone Number [facility] [address] [place] [address] * CHLAMYDIA/N. GONORRHOEAE AMPLIFIED RNA, THINPREP (01/10/2020 9:15 EDT) Neisseria gonorrhoeae Result Negative Negative 01/15/2020 7:10 EDT [facility] Chlamydia trachomatis Result Negative Negative 01/15/2020 7:10 EDT [facility] Papanicolaou smear specimen (specimen) CERVIX UTERI STRUCTURE / Unknown 01/10/2020 9:15 EDT 01/14/2020 8:59 EDT Elaine Pal APRN MICROBIOLOGY - GENERAL O RDERABLES Final Result Performing Organization Address City/[facility] Co de Phone Number [facility] [address] [place] [address] documented in this encounter Visit Diagnoses Diagnosis Encounter for general adult medical examination without abnormal findings Unspecified general medical examination Encounter for screening for malignant neoplasm of cervix Screening for malignant neoplasm of the cervix documented in this encounter Care Teams Sales And Marketing Coordinator Relationship Specialty Start Date End Date Shaka Younger MD [address] [place] [address] PCP - General 09/29/10 documented as of this encounter
--- OUTSIDE RECORDS SUMMARY | 2024-05-02 10:25 | XMS_ITS | Encounter Summary ---
Author Organization [facility] Address [address] [place] [address] Care Team Providers Care Bucket Pusher Name Role Phone Shaka Younger MD Primary Care Provider Encounter Details Date Type Department Care Team (Late st Contact Info) Description 11/17/2006 Before PRISM Converted Visit (Maple) [facility] - Maple conversion [address] [place] [address] Barry García MD [address] [place] [address] Social History Tobacco Use Types Packs/Day Years Used Date Smoking Tobacco: Never Assessed Comments Unknown Sex and Gender Information Value Date Recorded Sex Assigned at Not on file Legal Sex Female 18:13 EST Gender Identity Not on file Sexual Orientation Not on file documented as of this encounter Plan of Treatment Not on file documented as of this encounter Procedures Procedure Name Priority Date/Time Associated Diagnosis Comments GROUP HOME ULTRASCREEN (INCLUDES SEQUENTIAL SCREEN) 11/17/2006 13:33 EDT documented in this encounter Results * GROUP HOME ULTRASCREEN (11/17/2006 13:33 EDT) Anatomical Region Laterality Modality Other 11/17/2006 13:3 3 EDT Narrative 09/18/2008 14:02 EDT ULTRASCREEN,[id number]/AMA/GENETIC COUNSELING Please refer to the separate [facility] report. ??Contact Maternal Medicine. Procedure Note Sixto Cabrera MD - 09/18/2008 ULTRASCREEN,[id number]/AMA/GENETIC COUNSELING Please refer to the separate [facility] report. Contact Maternal Medicine. Barry García MD [facility] ORDERABLES Final R esult documented in this encounter Visit Diagnoses Not on filedocumented in this encounter Care Teams Bucket Pusher Relationship Specialty Start Date End Date Shaka Younger MD [address] [place] [address] PCP - General 09/29/10 documented as of this encounter
--- OUTSIDE RECORDS SUMMARY | 2024-05-02 10:25 | XMS_ITS | Encounter Summary ---
Author Organization [facility] Address [address] [place] [address] Care Team Providers Care Addictions Counselor Name Role Phone Shaka Younger MD Primary Care Provider [phone] Reason for Visit * Reason Onset Date Comments Diagnostic Imaging Report 05/16/2019 Encounter Details Date Type Department Care Team (Late st Contact Info) Description 05/16/2019 Telephone [facility] [address] [place] [id number] Edward Vásquez MD [address] [place] [phone] Diagnostic Imaging Report Social History Tobacco Use Types Packs/Day Years Used Date Smoking Tobacco: Never Smokeless Tobacco: Never Comments Unknown Sex and Gender Information Value Date Recorded Sex Assigned at Not on file Legal Sex Female 18:13 EST Gender Identity Not on file Sexual Orientation Not on file documented as of this encounter Miscellaneous Notes * Telephone Encounter - Sulma Moreno - 05/16/2019 0759 EST Please add new order for XR Lumbar Spine needs to be 4 or more views documented in this encounter Plan of Treatment Not on file documented as of this encounter Visit Diagnoses Not on filedocumented in this encounter Care Teams Addictions Counselor Relationship Specialty Start Date End Date Shaka Younger MD [address] [place] [address] PCP - General 09/29/10 documented as of this encounter
--- OUTSIDE RECORDS SUMMARY | 2024-05-02 10:25 | XMS_ITS | Encounter Summary ---
Author Organization [facility] Address [address] [place] [address] Care Team Providers Care Lockstitch Tunnel Elastic Operator Name Role Phone Shaka Younger MD Primary Care Provider [phone] Encounter Details Date Type Department Care Team (Late st Contact Info) Description 03/27/2019 Lab Requisition [facility] Pathology & Laboratory Medicine - [address] [address] Unknown, Provider, Social History Tobacco Use Types Packs/Day Years [...] Procedure Name Priority Date/Time Associated Diagnosis Comments HEPATITIS C AB W REFLEX TO HCV RNA BY PCR Routine 03/26/2019 10:25 EST documented in this encounter Results * HEPATITIS C AB W REFLEX TO HCV RNA BY PCR (03/26/2019 10:25 EST) Hep C Antibody Negative Negative 03/28/2019 14:55 EST [facility] Blood VENOUS BLOOD / Unknown 03/26/2019 10:25 EST 03/27/2019 16:46 EST us Provider Unknown CHEMISTRY & BLOOD GAS ORDERA BLES Final Result [facility] [address] [place] [address] documented in this encounter Visit Diagnoses Not on filedocumented in this encounter Care Teams Lockstitch Tunnel Elastic Operator Relationship Specialty Start Date End Date Shaka Younger MD [address] [place] [address] PCP - General 09/29/10 documented as of this encounter
--- OUTSIDE RECORDS SUMMARY | 2024-05-02 10:25 | XMS_ITS | Encounter Summary ---
Author Organization [facility] Address [address] [place] [address] Care Team Providers Care Avionics Mechanic Name Role Phone Shaka Younger MD Primary Care Provider Encounter Details Date Type Department Care Team (Late st Contact Info) Description 09/25/2010 Results Only [facility] Laboratory Services - [facility] [address] [place], [place] [address] Pio Delgado, MAGGIE [address] [place] [address] Social History Tobacco Use Types Packs/Day Years [...] Name Priority Date/Time Associated Diagnosis Comments PAP TEST- RESULT ONLY Routine 09/25/2010 0:00 EDT documented in this encounter Results * PAP TEST- RESULT ONLY (09/25/2010 0:00 EDT) Pathology Report: CYTOPATHOLOGY REPORT ? Reports generated via electronic interface contain original data; ? however they are lacking the format of the original report. ? Caution should be taken when reading/interpreti ng unformatted reports. ? Name: ? ELIESER AGUIRRE ? Accession #: ? [id number] ? : ? 1970 (Age: 40) ??F ?Collect Date: ? 09/25/2010 ? Location: ? [facility] ? Receive Date: ? 09/29/2010 ? Provider: PIO ALEXIS FIRE CHIEF ? Copy to: ? Final Report ? SPECIMEN ADEQUACY ? Satisfactory for Evaluation ? - transformation zone component present ? GENERAL CATEGORIZATION ? Negative for Intraepithelial Lesion or Malignancy ? Last Menstural Period: 09/11/2010 ? Specimen/Source: ??Pap Test, Source Not Provided, ThinPrep Imaging System with ?? manual evaluation ? Document reviewed and electronically signed by: ? Arminda [place](ASCP) ? Report ??Date: 10/06/2010 14:27 ? HPV with Pap Test ? Date Ordered: ? 10/06/2010 ? Status: ?? Signed Out ?Date Complete: ? 10/08/2010 ? By: ??System Interface ? Date Reported: ? 10/08/2010 ? Interpretation ? RESULT: Negative for HPV types 16, 18, 31, 33, 35, 39, 45, 51, 52, ? 56, 58, 59, and 68. ? NHPV2 ? Comments ? Document reviewed and electronically signed by: ? System Interface ? Report date: 10/08/2010 ? By the signature above, the attending physician certifies that he/she has ? personally conducted a gross and/or microscopic examination of the described ? specimens and rendered or confirmed the above diagnosis. ? End of Report ? [facility] 09/25/2010 09/29/2010 us Pio Delgado FIRE CHIEF PATHOLOGY ORDERABLES Connie joseph Result Performing Organization Address City/State/[facility] Co de Phone Number [facility] [address] [place] [address] documented in this encounter Visit Diagnoses Not on filedocumented in this encounter Care Teams Avionics Mechanic Relationship Specialty Start Date End Date Shaka Younger MD [address] [place] [address] PCP - General 09/29/10 documented as of this encounter
--- OUTSIDE RECORDS SUMMARY | 2024-05-02 10:25 | XMS_ITS | Encounter Summary ---
Author Organization [facility] Address [address] [place] [address] Care Team Providers Care Public Administration Teacher Name Role Phone Unavailable Primary Care Provider Unavailabl e Encounter Details Date Type Department Care Team (Late st Contact Info) Description 10/03/2000 19:26 EDT Hospital Encounter [facility] - Other [address] [place] [address] Barry García MD [address] [place] [address] Unknown, Provider, Social History Tobacco Use Types [...] Procedure Name Priority Date/Time Associated Diagnosis Comments HPV DETECTION, HIGH RISK TYPES Routine 01/10/2009 9:54 EDT CYTOPATHOLOGY Routine 01/10/2009 0:00 EDT documented in this encounter Results * HUMAN PAPILLOMA VIRUS DNA TEST (01/10/2009 9:54 EDT) Specimen Description Cervix, ThinPrep vial [facility] Result Negative for HPV types 16, 18, 31, 33, 35, 39, 45, 51, 52, 56, 58, 59, and 68. [facility] Report Status Final 01/23/2009 [facility] 01/10/2009 9:54 EDT 01/21/2009 9:54 EST Barry García MD MICROBIOLOGY - GENERAL ORDERA BLES Final Result [facility] [address] [place] [address] * CYTOPATHOLOGY (01/10/2009 0:00 EDT) Pathology Report: CYTOPATHOLOGY REPORT ? Reports generated via electronic interface contain original data; ? however they are lacking the format of the original report. ? Caution should be taken when reading/interpreti ng unformatted reports. ? Name: ? ELIESER DUGGAN ? Accession #: ? [id number] ? : ? 1970 (Age: 38) ??F ?Collect Date: ? 01/10/2009 ? Location: ? [facility] ? Receive Date: ? 01/13/2009 ? Provider: ?L JESSICA GARCÍA MD ? Copy to: ? Specimen/Source: ?Pap Test, Cervix/Endocervix, ThinPrep Imaging System ? with manual evaluation ? Last Menstrual Period: ? 10/08/09 ? Other: ? Additional clinical information: Multiple partners, early sexual activity. ? HPVDX - HPV testing requested regardless of diagnosis on current ThinPrep Pap ?? test. ? SPECIMEN ADEQUACY ? Satisfactory for Evaluation ? - transformation zone component present ? GENERAL CATEGORIZATION ? Negative for Intraepithelial Lesion or Malignancy ? Document reviewed and electronically signed by: ? Juanita Snow CT(ASCP) ? Report Date: ??01/21/2009 07:16 ? End of Report ? [facility] 01/10/2009 01/13/2009 us Barry García MD PATHOLOGY ORDERABLES Final Re sult [facility] [address] [place] [address] documented in this encounter Visit Diagnoses Not on filedocumented in this encounter
--- OUTSIDE RECORDS SUMMARY | 2024-05-02 10:25 | XMS_ITS | Encounter Summary ---
Author Organization [facility] Address [address] [place] [address] Care Team Providers Care Linoleum Layer Name Role Phone Unavailable Primary Care Provider Unavailabl e Encounter Details Date Type Department Care Team (Late st Contact Info) Description 11/04/[address] [facility] - Maple conversion [address] [place] [address] Barry García MD [address] [place], [place] [address] Social History Tobacco Use Types Packs/Day Years [...] Procedure Name Priority Date/Time Associated Diagnosis Comments CYTOPATHOLOGY Routine 11/04/2005 0:00 EDT documented in this encounter Results * CYTOPATHOLOGY (11/04/2005 0:00 EDT) Pathology Report: CYTOPATHOLOGY REPORT Reports generated via electronic interface contain original data; however they are lacking the format of the original report. Caution should be taken when reading/interpreti ng unformatted reports. Name: ? ELIESER DUGGAN ? Accession #: ? [id number] : ? 1970 (Age: 35) ??F ?Collect Date: ? 11/04/2005 Location: ? [facility] ? Receive Date: ? 11/08/2005 Provider: ?Sana GARCÍA MD Copy to: ? Specimen/Source: ?ThinPrep Pap Test, Cervix, processed on [employer] ThinPrep Imaging System, with manual evaluation Last Menstrual Period: ? 10/12/05 Other: ? Additional clinical information: All paps WNL ? SPECIMEN ADEQUACY ? Satisfactory for Evaluation - transformation zone component present - scant squamous epithelial component secondary to excessive inflammation GENERAL CATEGORIZATION ? Negative for Intraepithelial Lesion or Malignancy ? Document reviewed and electronically signed by: ? TAMMI Webre(ASCP) ? Report Date: ??11/11/2005 11:50 End of Report [facility] 11/04/2005 11/08/2005 us Barry García MD PATHOLOGY ORDERABLES Final Re laura [facility] [address] [place] [address] documented in this encounter Visit Diagnoses Not on filedocumented in this encounter
--- OUTSIDE RECORDS SUMMARY | 2024-05-02 10:25 | XMS_ITS | Encounter Summary ---
Author Organization [facility] Address [address] [place] [address] Care Team Providers Care Injection Mold Technician Name Role Phone Shaka Younger MD Primary Care Provider [phone] Encounter Details Date Type Department Care Team (Late st Contact Info) Description 01/01/2015 Results Only [facility]- [facility] [phone] Amy Phillips, ANDREW [facility] [address] [place] [address] Social History Tobacco Use Types Packs/Day Years [...] Diagnosis Comments PAP TEST- RESULT ONLY Routine 01/01/2015 0:00 EDT documented in this encounter Results * PAP TEST- RESULT ONLY (01/01/2015 0:00 EDT) Pathology Report: CYTOPATHOLOGY REPORT Reports generated via electronic interface contain original data; however they are lacking the format of the original report. Caution should be taken when reading/interpreti ng unformatted reports. Name: ? ELIESER JEFFERS ? Accession #: ? [id number] ? : ? 1970 (Age: 44) ??F ?Collect Date: ? 01/01/2015 ? Location: ? [facility] ? Receive Date: ? 01/03/2015 ? Provider: AMY PHILLIPS PRESS MACHINE OPERATOR Copy to: ? Final Report SPECIMEN ADEQUACY ? Satisfactory for Evaluation - transformation zone component present GENERAL CATEGORIZATION ? Negative for Intraepithelial Lesion or Malignancy INTERPRETATION ? Reactive cellular changes associated with inflammation present (includes repair). Last Menstrual Period: 2 weeks ago Other: Additional clinical information: hormone/contracept germán use - none, CYBER SECURITY CONSULTANT Clinical/Treatment History - none Specimen/Source: ??Pap Test, Cervix/Endocervix, ThinPrep Imaging System with manual evaluation Document reviewed and electronically signed by: ? BLESSING TYLER MD ? Report ??Date: 01/08/2015 10:49 HPV with Pap Test ? Date Ordered: ? 01/08/2015 ? Status: ?? Signed Out ?Date Complete: ? 01/17/2015 ? By: ??System Interface ? Date Reported: ? 01/17/2015 ? Interpretation RESULT: Negative for HPV. No E6 or E7 mRNA is detected from HPV types 16,18,31,33,35, 39,45,51,52,56,58, 59,66, and 68 by manager graphic mediated amplification. Comments Document reviewed and electronically signed by: ? System Interface ? Report date: 01/17/2015 By the signature above, the attending physician certifies that he/she has personally conducted a gross and/or microscopic examination of the described specimens and rendered or confirmed the above diagnosis. End of Report [facility] 01/01/2015 01/03/2015 us Amy Phillips DNP CNM DIRECTOR EXPERIMENTAL MEDICINE PATHOLOGY ORDERABL ES Final Result [facility] [address] [place] [address] documented in this encounter Visit Diagnoses Not on filedocumented in this encounter Care Teams Injection Mold Technician Relationship Specialty Start Date End Date Shaka Younger MD [address] [place] [address] PCP - General 09/29/10 documented as of this encounter
--- OUTSIDE RECORDS SUMMARY | 2024-05-02 10:25 | XMS_ITS | Encounter Summary ---
Author Organization [facility] Address [address] [place] [address] Care Team Providers Care Restaurant Maintenance Technician Name Role Phone Shaka Younger MD Primary Care Provider Encounter Details Date Type Department Care Team (Late st Contact Info) Description 02/28/2021 Lab Requisition [facility] Pathology & Laboratory Medicine - [address] [address] Outr Resulting Lab, Provider Social History Tobacco Use Types Packs/Day Years [...] Procedure Name Priority Date/Time Associated Diagnosis Comments HIV 1/2 ANTIGEN AND ANTIBODY, 4TH GENERATION Routine 02/27/2021 15:55 EST documented in this encounter Results * HIV 1/2 ANTIGEN AND ANTIBODY, 4TH GENERATION (02/27/2021 15:55 EST) HIV 1 and 2 Antibody/p24 Antigen, 4th Generation Negative Negative 03/02/2021 10:35 EST [facility] Comment:If acute HIV-1 infec tion is suspected in a high risk patient, submit plasma specimen for HIV-1 RNA quantitation test. Blood VENOUS BLOOD / Unknown 02/27/2021 15:55 EST 03/01/2021 15:26 EST Narrative [facility] - 03/02/2021 10:35 EST Fourth Generation assay performed on the Siem[employer] Gel[employer] Fiascoaur XPT. us Provider Outr Resulting Lab IMMUNOLOGY AND SEROL OGY ORDERABLES Final Result [facility] [address] [place] [address] documented in this encounter Visit Diagnoses Not on filedocumented in this encounter Care Teams Restaurant Maintenance Technician Relationship Specialty Start Date End Date Shaka Younger MD [address] [place] [address] PCP - General 09/29/10 documented as of this encounter
--- OUTSIDE RECORDS SUMMARY | 2024-05-02 10:25 | XMS_ITS | Referral Summary ---
Author Organization [facility] Address [address] [place] [address] Care Team Providers Care Tier In Name Role Phone Shaka Younger MD Primary Care Provider Allergies No known active allergies Medications omeprazole (PRILOSEC) 20 mg capsule Take 20 mg by mouth daily. Active Social History Tobacco Use Types Packs/Day Years Used Date Smoking Tobacco: Never Smokeless Tobacco: Never Interpersonal Safety Answer Date Record ed Physically Hurt Never 10/21/2019 Verbally Threaten Not on file 10/21/2019 Comments Unknown Sex and Gender Information Value Date Recorded Sex Assigned at Not on file Legal Sex Female 18:13 EST Gender Identity Not on file Sexual Orientation Not on file Last Filed Vital Signs Vital Sign Reading Time Taken Comments Blood Pressure 140/88 05/15/2019 1121 EST Pulse 70 05/15/2019 1121 EST Temperature - - Respiratory Rate - - Oxygen Saturation - - Inhaled Oxygen Concentration - - Weight 99.8 kg (220 lb) 05/15/2019 1121 EST Height 167.6 cm (5' 6) 05/15/2019 1121 EST Body Mass Index 35.51 05/15/2019 1121 EST Plan of Treatment Not on file Procedures Procedure Name Priority Date/Time Associated Diagnosis Comments HEPATITIS C AB W REFLEX TO HCV RNA BY PCR Routine 09/13/2022 15:30 EDT from Last 3 Months or Most Recently Relevant to Health Maintenance Results * HEPATITIS C AB W REFLEX TO HCV RNA BY PCR (09/13/2022 15:30 EDT) Hep C Antibody Negative Negative 09/15/2022 14:[address] [facility] Blood VENOUS BLOOD / Unknown 09/13/2022 15:30 EDT 09/14/2022 17:19 EDT us Provider Outr Resulting Lab CHEMISTRY & BLOOD GA S ORDERABLES Final Result [facility] [address] [place] [address] from Last 3 Months or Most Recently Relevant to Health Maintenance [place] Care Teams Tier In Relationship Specialty Start Date End Date Shaka Younger MD [address] [place] [address] PCP - General 09/29/10
--- OUTSIDE RECORDS SUMMARY | 2024-05-02 10:25 | XMS_ITS | Encounter Summary ---
Author Organization [facility] Address [address] [place] [address] Care Team Providers Care Condenser Cleaner Name Role Phone Shaka Younger MD Primary Care Provider [phone] Encounter Details Date Type Department Care Team (Late st Contact Info) Description 04/07/2012 Results Only [facility] - [facility] [address] [place], [place] [address] Pio Delgado, MAGGIE [address] [place], [place] [address] Social History Tobacco Use Types Packs/Day Years [...] Diagnosis Comments PAP TEST- RESULT ONLY Routine 04/07/2012 0:00 EST documented in this encounter Results * PAP TEST- RESULT ONLY (04/07/2012 0:00 EST) Pathology Report: CYTOPATHOLOGY REPORT Reports generated via electronic interface contain original data; however they are lacking the format of the original report. Caution should be taken when reading/interpreti ng unformatted reports. Name: ? TIMOTHY ELIESER M ? Accession #: ? [id number] : ? 1970 (Age: 41) ??F ?Collect Date: ? 04/07/2012 Location: ? [facility] ? Receive Date: ? 04/11/2012 Provider: ?PIO DELGADO ENGINEERING LAB TECHNICIAN Copy to: ? Specimen/Source: ?Pap Test, Cervix/Endocervix, ThinPrep Imaging System with manual evaluation Last Menstrual Period: ? 03/30/12 ? SPECIMEN ADEQUACY ? Satisfactory for Evaluation - transformation zone component present GENERAL CATEGORIZATION ? Negative for Intraepithelial Lesion or Malignancy INTERPRETATION ? Reactive cellular changes associated with inflammation present (includes repair). Shift in cari present suggestive of bacterial vaginosis. ? Document reviewed and electronically signed by: ? ZO JACK MD ? Report Date: ??04/22/2012 10:50 End of Report [facility] 04/07/2012 04/11/2012 us Pio Delgado ENGINEERING LAB TECHNICIAN PATHOLOGY ORDERABLES Connie joseph Result [facility] [address] [place] [address] documented in this encounter Visit Diagnoses Not on filedocumented in this encounter Care Teams Condenser Cleaner Relationship Specialty Start Date End Date Shaka Younger MD [address] [place] [address] PCP - General 09/29/10 documented as of this encounter
--- OUTSIDE RECORDS SUMMARY | 2024-05-02 10:25 | XMS_ITS | Encounter Summary ---
Author Organization [facility] Address [address] [place] [address] Care Team Providers Care Collect On Delivery Clerk Name Role Phone Shaka Younger MD Primary Care Provider [phone] Encounter Details Date Type Department Care Team (Late st Contact Info) Description 09/13/2022 Lab Requisition [facility] Pathology & Laboratory Medicine - [address] [address] Outr Resulting Lab, Provider Social History Tobacco [...] Procedure Name Priority Date/Time Associated Diagnosis Comments LYME AB Routine 09/13/2022 15:30 EDT HEPATITIS C AB W REFLEX TO HCV RNA BY PCR Routine 09/13/2022 15:30 EDT documented in this encounter Results * HEPATITIS C AB W REFLEX TO HCV RNA BY PCR (09/13/2022 15:30 EDT) Hep C Antibody Negative Negative 09/15/2022 14:21 EDT [facility] Blood VENOUS BLOOD / Unknown 09/13/2022 15:30 EDT 09/14/2022 17:19 EDT us Provider Outr Resulting Lab CHEMISTRY & BLOOD GA S ORDERABLES Final Result Performing Organization Address [facility]/ZIP Co de Phone Number [facility] [address] [place] [address] * LYME AB (09/13/2022 15:30 EDT) Lyme Ab Negative Negative 09/15/2022 12:07 EDT [facility] Blood VENOUS BLOOD / Unknown 09/13/2022 15:30 EDT 09/14/2022 17:19 EDT us Provider Outr Resulting Lab IMMUNOLOGY AND SEROL OGY ORDERABLES Final Result Performing Organization Address [facility] de Phone Number [facility] [address] [place] [address] documented in this encounter Visit Diagnoses Not on filedocumented in this encounter Care Teams Collect On Delivery Clerk Relationship Specialty Start Date End Date Shaka Younger MD [address] [place] [address] PCP - General 09/29/10 documented as of this encounter
--- OUTSIDE RECORDS SUMMARY | 2024-05-02 10:25 | XMS_ITS | Encounter Summary ---
Author Organization [facility] Address [address] [place] [address] Care Team Providers Care Supply Tech Name Role Phone Unavailable Primary Care Provider Unavailabl e Encounter Details Date Type Department Care Team (Late st Contact Info) Description 06/07/2001 Results Only [facility] - Maple conversion [address] [place] [address] Barry García MD [address] [place], [place] [address] Social History Tobacco Use Types Packs/Day Years [...] Priority Date/Time Associated Diagnosis Comments CYTOPATHOLOGY Routine 06/07/2001 0:00 EST documented in this encounter Results * CYTOPATHOLOGY (06/07/2001 0:00 EST) Pathology Report: CYTOPATHOLOGY REPORT Reports generated via electronic interface contain original data; however they are lacking the format of the original report. Caution should be taken when reading/interpreti ng unformatted reports. Name: ? ELIESER DUGGAN ? Accession #: ? [id number] : ? 1970 (Age: 31) ??F ?Collect Date: ? 06/07/2001 Location: ? [facility] ? Receive Date: ? 06/09/2001 Provider: ?Sana GARCÍA MD Copy to: ? Specimen/Source: ?Conventional Pap Test, Cervix/Endocervix Last Menstrual Period: ? Spotted 04/22 Menstrual/Pregnanc y Status: ? Post Other: ? Client ID#: [id number] ? SPECIMEN ADEQUACY ? Satisfactory for Evaluation - transformation zone component present GENERAL CATEGORIZATION ? Negative for Intraepithelial Lesion or Malignancy ? Document reviewed and electronically signed by: ? TAMMI Melendez(ASCP) ? Report Date: ??06/14/2001 09:29 End of Report [facility] 06/07/2001 06/09/2001 us Barry García MD PATHOLOGY ORDERABLES Final Re sult [facility] [address] [place] [address] documented in this encounter Visit Diagnoses Not on filedocumented in this encounter
--- OUTSIDE RECORDS SUMMARY | 2024-05-02 10:25 | XMS_ITS | Encounter Summary ---
Author Organization [facility] Address [address] [place] [address] Care Team Providers Care Line Construction Superintendent Name Role Phone Shaka Younger MD Primary Care Provider Encounter Details Date Type Department Care Team (Late st Contact Info) Description 02/13/2020 Lab Requisition [facility] Pathology & Laboratory Medicine - [address] [address] Sandy Cain [address] [place] [phone] Encounter for other general examination Social History Tobacco Use Types Packs/Day Years [...] Procedure Name Priority Date/Time Associated Diagnosis Comments SURGICAL PATHOLOGY Today 02/13/2020 10 :40 EST Encounter for other general examination documented in this encounter Results * SURGICAL PATHOLOGY (02/13/2020 10:40 EST) Final Diagnosis A. CERVIX, BIOPSY: - Benign endocervical polyp. 02/16/2020 9:26 EST [facility] Attestation By the signature below, the attending physician certifies that they have 1) personally conducted a gross and/or microscopic examination of the described specimen(s), and/or personally interpreted the results of laboratory testing of the described specimen(s), and 2) personally rendered or confirmed the above diagnosis. 02/16/2020 9:26 [facility] at 0926 Clinical History Cervical polyp 02/16/2020 9:26 [facility] Gross Description A. Received in formalin labelled with proper patient identification (initials G, K) and cervical is a 1.8 x 1.0 x 0.2 cm aggregate of pink-gonzalez to red-brown mucus. The specimen is entirely submitted in A1. ARLENE CASTRO(ASCP) 02/13/2020 16:44 02/16/2020 9:26 [facility] Performing Lab [facility] 02/16/2020 9:26 [facility] Scanned Images 02/16/2020 9:26 [facility] Tissue ENTIRE WALL OF CERVIX / Unknown 02/13/2020 10:40 EST 02/13/2020 16:31 EST Sandy Cain PATHOLOGY ORDERABLES Final Resul t [facility] [address] [place] [address] documented in this encounter Visit Diagnoses Diagnosis Encounter for other general examination documented in this encounter Care Teams Line Construction Superintendent Relationship Specialty Start Date End Date Shaka Younger MD [address] [place] [address] PCP - General 09/29/10 documented as of this encounter
--- OUTSIDE RECORDS SUMMARY | 2024-05-02 10:25 | XMS_ITS | Encounter Summary ---
Author Organization [facility] Address [address] [place] [address] Care Team Providers Care Continuous Mining Machine Operator Name Role Phone Shaka Younger MD Primary Care Provider [phone] Encounter Details Date Type Department Care Team (Late st Contact Info) Description 02/28/[address] [facility] Pathology & Laboratory Medicine - [address] [address] Outr Resulting Lab, Provider Social History Tobacco [...] Procedure Name Priority Date/Time Associated Diagnosis Comments HCV RNA DETECT QUANT Today 02/27/2021 15:55 EST HEPATITIS C AB W REFLEX TO HCV RNA BY PCR Routine 02/27/2021 15:55 EST documented in this encounter Results * HCV RNA DETECT QUANT (02/27/2021 15:55 EST) HCV RNA Qualitative Undetected Undetected 03/04/2021 11:44 EST [facility] Blood VENOUS BLOOD / Unknown 02/27/2021 15:55 EST 03/01/2021 15:27 EST Narrative [facility] - 03/04/2021 11:44 EST New platform in use 10/13/2020 The quantification range of this assay is 15 IU/mL to 100,000,000 IU/mL. Testing was performed using the Darnell HCV test ([employer] with the darnell [id number] System. us Provider Outr Resulting Lab CHEMISTRY & BLOOD GA S ORDERABLES Final Result Performing Organization Address City/[facility] Co de Phone Number [facility] [address] [place] [address] * (ABNORMAL) HEPATITIS C AB W REFLEX TO HCV RNA BY PCR (02/27/2021 15:55 EST) Hep C Antibody Equivocal( A) Negative 03/02/2021 12:45 EST [facility] Comment: Supplemental testing for HCV RNA to follow. Blood VENOUS BLOOD / Unknown 02/27/2021 15:55 EST 03/01/2021 15:27 EST us Provider Outr Resulting Lab CHEMISTRY & BLOOD GA S ORDERABLES Final Result Performing Organization Address [facility] Co de Phone Number [facility] [address] [place] [address] documented in this encounter Visit Diagnoses Not on filedocumented in this encounter Care Teams Continuous Mining Machine Operator Relationship Specialty Start Date End Date Shaka Younger MD [address] [place] [address] PCP - General 09/29/10 documented as of this encounter
--- OUTSIDE RECORDS SUMMARY | 2024-05-02 10:25 | XMS_ITS | Clinical Summary ---
Author Organization [facility] Address [facility] [place] [address] Care Team Providers Care Extrusion Die Repairer Name Role Phone Mary Lou Fletcher APRN Primary Care Provider [phone] Social History Tobacco Use Types Packs/Day Years Used Date Smoking Tobacco: Never Assessed Sex and Gender Information Value Date Recorded Sex Assigned at Not on file Gender Identity Not on file Sexual Orientation Not on file Plan of Treatment Health Maintenance Due Date Last Done Comments CT Colonography 1969 Colonoscopy 1969 Colorectal Cancer Screening 1970 FIT DNA 1970 FIT 1970 Sigmoidoscopy (10 year) with FIT yearly 1969 Sigmoidoscopy 1969 HIV screen 1987 Hepatitis C Screening 1987 Hepatitis B vaccine (0-59 yrs) (1) 1988 Tetanus/Diphtheria/Pertussis Vaccines (1 - Tdap) 04/19 HPV test 1999 PAP Smear 1999 Breast Cancer Share Decision Needed 2009 Breast Cancer screening 2009 Pneumoccocal Vaccine: 50+ (1 of 1 - PCV) 2019 Zoster vaccine (1 of 2) 2019 Covid-19 Vaccine (1 - 2023- season) 2023 Influenza (Flu) vaccine (1 o f 1 - Influenza standard series) 11/20/2023 Advance Directive 2024 Care Teams Extrusion Die Repairer Relationship Specialty Start Date End Date Mary Lou Fletcher APRN [address] [place] [address] PCP - General Family Medicine 02/17/23
--- OUTSIDE RECORDS SUMMARY | 2024-05-02 10:25 | XMS_ITS | Encounter Summary ---
Author Organization [facility] [place] [address] Care Team Providers Care Swimming Pool Maintenance Name Role Phone Mary Lou Fletcher APRN Primary Care Provider [phone] Reason for Referral * Consultation (Routine) - Closed Specialty Diagnoses / Procedures Referred By Valentino chamorro Referred To Contact Urology Diagnoses Cystocele, unspecified PLEASE EVALUATE FOR POSSIBLE SURGICAL CORRECTION. PATIENT HAD A PREVIOUS LAPAROSCOPIALLY ASSISTED VAGINAL HYSTERCTOMY BILATERAL SALPINGECTOMY, ANTERIOR AND POSTERIOR COLPORRHAPHY, VAGINAL VAULT SUSPENSION, PAREDES'S CULDOPLASTY, TOT. NOW WITH RECURRENCE OF CYSTOCELE. Sandy Cain DO [address] [place] [address] [place] [address] [employer] [address] [place] [address] Referral ID Status Reason Start Date Expiration Date V isits Requested Visits Authorized [id number] Closed Consult, Test & Treat PCP Updated and/or Approved 02/17/2023 02/17/2024 6 6 Encounter Details Date Type Department Care Team (Late st Contact Info) Description 02/17/2023 Transcribe Orders eDH Incoming Referrals [phone] Sandy Cain DO [address] [place] [address] [address] [place] [place] [id number] Cystocele, unspecified Social History Tobacco Use Types Packs/Day Years Used Date Smoking Tobacco: Never Assessed Sex and Gender Information Value Date Recorded Sex Assigned at Not on file Gender Identity Not on file Sexual Orientation Not on file documented as of this encounter Plan of Treatment Scheduled Referrals Name Type Priority Associated Diagnoses Order Schedule Referral to Urogynecology Outpatient Referral Routine Cystocele, unspecified Ordered: 02/17/2023 documented as of this encounter Visit Diagnoses Diagnosis Cystocele, unspecified documented in this encounter Care Teams Swimming Pool Maintenance Relationship Specialty Start Date End Date Mary Lou Fletcher, PLASTER MOLDER [facility] [place] [address] PCP - General Family Medicine 02/17/23 documented as of this encounter
--- OUTSIDE RECORDS SUMMARY | 2024-05-02 10:25 | XMS_ITS | Encounter Summary ---
Author Organization [facility] Address [address] [place] [address] Care Team Providers Care Senior Construction Manager Name Role Phone Shaka Younger MD Primary Care Provider [phone] Encounter Details Date Type Department Care Team (Late st Contact Info) Description 09/13/[address] [facility] Pathology & Laboratory Medicine - [address] [address] Outr Resulting Lab, Provider Social History Tobacco [...] 1/2 ANTIGEN AND ANTIBODY, 4TH GENERATION Routine 09/13/2022 15:30 EDT documented in this encounter Results * HIV 1/2 ANTIGEN AND ANTIBODY, 4TH GENERATION (09/13/2022 15:30 EDT) HIV 1 and 2 Antibody/p24 Antigen, 4th Generation Negative Negative 09/15/2022 16:59 EDT [facility] Comment:If acute HIV-1 infec tion is suspected in a high risk patient, submit plasma specimen for HIV-1 RNA quantitation test. Blood VENOUS BLOOD / Unknown 09/13/2022 15:30 EDT 09/14/2022 17:19 EDT Narrative [facility] - 09/15/2022 16:59 EDT Fourth Generation assay performed on the Siemens [employer] XPT. us Provider Outr Resulting Lab IMMUNOLOGY AND SEROL OGY ORDERABLES Final Result [facility] [address] [place] [address] documented in this encounter Visit Diagnoses Not on filedocumented in this encounter Care Teams Senior Construction Manager Relationship Specialty Start Date End Date Shaka Younger MD [address] [place] [address] PCP - General 09/29/10 documented as of this encounter
--- OUTSIDE RECORDS SUMMARY | 2024-05-02 10:25 | XMS_ITS | Encounter Summary ---
Author Organization [facility] Address [address] [place] [address] Care Team Providers Care Veterinary Meat Inspector Name Role Phone Shaka Younger MD Primary Care Provider Encounter Details Date Type Department Care Team (Late st Contact Info) Description 01/06/2020 Lab Requisition [facility] Pathology & Laboratory Medicine - [address] [address] Outr Resulting Lab, Provider Social History Tobacco [...] Procedure Name Priority Date/Time Associated Diagnosis Comments ACUTE HEPATITIS PROFILE Routine 01/05/2020 16:40 EDT documented in this encounter Results * ACUTE HEPATITIS PROFILE (01/05/2020 16:40 EDT) Hep B Surface Ag Negative Negative 01/07/2020 12:37 EDT [facility] Hep C Antibody Negative Negative 01/07/2020 12:37 EDT [facility] Hepatitis A Antibody, IgM Negative Negative 01/07/2020 12:37 EDT [facility] Comment:The results of this assay can be falsely lowered due to the consumption of Biotin. Hepatitis B Core Ab, Total Negative Negative 01/07/2020 12:37 EDT [facility] Blood VENOUS BLOOD / Unknown 01/05/2020 16:40 EDT 01/06/2020 17:03 EDT us Provider Outr Resulting Lab CHEMISTRY & BLOOD GA S ORDERABLES Final Result Performing Organization Address City/State/[facility] Co de Phone Number [facility] [address] [place] [address] documented in this encounter Visit Diagnoses Not on filedocumented in this encounter Care Teams Veterinary Meat Inspector Relationship Specialty Start Date End Date Shaka Younger MD [address] [place] [address] PCP - General 09/29/10 documented as of this encounter
--- OUTSIDE RECORDS SUMMARY | 2024-05-02 10:25 | XMS_ITS | Encounter Summary ---
Author Organization [facility] Address [address] [place] [address] Care Team Providers Care Record Label Intern Name Role Phone Shaka Younger MD Primary Care Provider [phone] Reason for Visit * Reason Comments New Patient Visit bilateral hip pain/E MG/NCS 2LE's Encounter Details Date Type Department Care Team (Late st Contact Info) Description 05/15/2019 11:00 EST Procedure visit [facility] [address] [place] [address] Edward Vásquez MD [address] [place] [id number] Chronic hip pain, bilateral (Primary Dx); Chronic bilateral low back pain with bilateral sciatica Social History Tobacco Use Types Packs/Day Years Used Date Smoking Tobacco: Never Smokeless Tobacco: Never Comments Unknown Sex and Gender Information Value Date Recorded Sex Assigned at Not on file Legal Sex Female 18:13 EST Gender Identity Not on file Sexual Orientation Not on file documented as of this encounter Last Filed Vital Signs Vital Sign Reading Time Taken Comments Blood Pressure 140/88 05/15/2019 1121 EST Pulse 70 05/15/2019 1121 EST Temperature - - Respiratory Rate - - Oxygen Saturation - - Inhaled Oxygen Concentration - - Weight 99.8 kg (220 lb) 05/15/2019 1121 EST Height 167.6 cm (5' 6) 05/15/2019 1121 EST Body Mass Index 35.51 05/15/2019 1121 EST documented in this encounter Progress Notes * Edward Vásquez MD - 05/15/2019 1100 EST [facility] PATIENT NAME: Adrianna Jeffers PATIENT : 1970 PCP: Shaka Younger DATE OF SERVICE: 05/15/2019 CHIEF COMPLAINT: Bilateral Hip Pain, sciatica, EMG/NCS 2LE's HISTORY OF PRESENT ILLNESS Adrianna Jeffers is a 49 y.o.right handed female with complaints of hip pain bilaterally that radiates to both lower extremities traveling down the posterior thigh down to the legs and feet bilaterally. There is no recollection of any precipitating trauma. She has chronic low back pain, but has had no radiographic imaging. She denies any bowel or bladder incontinence. She has had one occasion where she slipped and fell on her feet, but has otherwise had no leg weakness. Hip pain is worse with climbing and going down steroids. She has a history of prediabetes and her most recent hemoglobin A1c done on March 26 of this year was 6.4%. PAST MEDICAL HISTORY Past Medical History: Diagnosis Date ??? Diabetes mellitus ([facility]) Pre-diabetes , last HgbA1c 6.4% PAST SURGICAL HISTORY History reviewed. No pertinent surgical history. FAMILY HISTORY family history includes Diabetes in her mother; Esophageal Cancer in her father; Kidney Failure in her mother. SOCIAL HISTORY reports that she has never smoked. She has never used smokeless tobacco. ALLERGIES No Known Allergies CURRENT MEDICATIONS Current Outpatient Medications Medication Sig Dispense Refill ??? omeprazole (PRILOSEC) 20 mg capsule Take 20 mg by mouth daily. No current facility-administered medications for this visit. REVIEW OF SYSTEMS: Complete 10-point ROS performed as noted in HPI and scanned patient questionnaire. PHYSICAL EXAMINATION BP 140/88 Pulse 70 Ht 167.6 cm (66) Wt 99.8 kg (220 lb) BMI 35.51 kg/m?? NEUROLOGIC EXAM Motor: Normal muscle bulk and supple tone throughout. No abnormal spontaneous movements. No rest or actiontremor. No pronator drift. Neck supple with full range of motion. LOWER Right Left Hip flexion 5/5 5/5 Hip abduction 5/5 5/5 Hip adduction 5/5 5/5 Quadriceps 5/5 5/5 Hamstrings 5/5 5/5 Ankle plantarflexion 5/5 5/5 Ankle dorsiflexion 5/5 5/5 Ankle inversion 5/5 5/5 Ankle eversion 5/5 5/5 EHL 5/5 5/5 EDB 5/5 5/5 Reflexes: Right Left Patellar L3-4 2/4 2/4 Ankles S1-2 2/4 2/4 Toes Flexor Flexor Special tests: Straight leg raise: Negative bilaterally SI joint tenderness: Negative bilaterally Sciatic notch tenderness: Negative bilaterally Tinel's fibular head: Negative bilaterally Tender at the hip joints bilaterally with lateral palpation. Sensation: Intact to light touch and pin prick, vibration symmetrically and bilaterally. Gait: ambulation with normal stride and base, erect posture, and full arm swing. No shuffling or magnetic gait. No circumduction of either lower extremity. No gait ataxia. Can heel, toe, and tandem without difficulty. EMG/NCS REPORT: Nerve Conduction Studies: Sensory and motor nerve conduction studies were normal in both lower extremities including long latencies (F-wave latencies) as well as H reflex latencies bilaterally and there is no significant asymmetry. Electromyography: Concentric needle electrodes were used to study select muscles of both lower extremities and the lumbar paraspinal muscles. All muscles studied demonstrated complete electrical silence at rest with no spontaneous activity. With volition, motor units were normal in configuration with no large amplitude or polyphasic pony potentials seen. With maximum voluntary effort, there is full recruitment with complete interference pattern throughout. An early recruitment pattern was not seen. IMPRESSION: This is a normal EMG/NCS of both lower extremities and the lumbar paraspinal muscles. There is no neurophysiologic evidence here for a lumbar radiculopathy, peripheral entrapment neuropathy, large fiber polyneuropathy, or a myopathic process. ASSESSMENT: 1. Bilateral hip pain. We will obtain plain x-rays of the hips bilaterally to rule out degenerativearthritis at the hips. 2. Chronic low back pain with bilateral sciatica. Neurologic examination is normal, nerve conduction studies and electromyography are normal. Bilateral lower back pain, hip pain with bilateral sciatic distribution symptoms may be due to sciatic nerve irritation. Recommend plain x-rays of the hips bilaterally, as well as a lumbosacral spine x-ray. PLAN: 1. Chronic hip pain, bilateral - XR HIPS BILATERAL 3-4 VIEWS, OPTIONAL PELVIS; Future 2. Chronic bilateral low back pain with bilateral sciatica - XR LUMBAR SPINE 2-3 VIEWS; Future 3. RV in 1-2 weeks to review Xray results Edward G Seward, MD documented in this encounter Plan of Treatment Not on file documented as of this encounter Procedures Procedure Name Priority Date/Time Associated Diagnosis Comments XR LUMBAR SPINE 4+ VIEWS 05/15/2019 14:18 EST XR HIPS BILATERAL 3-4 VIEWS 05/15/2019 14:16 EST documented in this encounter Results * XR LUMBAR SPINE 4 OR MORE VIEWS (05/15/2019 14:18 EST) Anatomical Region Laterality Modality Other 05/15/2019 14:1 5 EST Narrative 05/15/2019 14:18 EST ? EXAM: RADIOLOGY/LUMBAR SPINE WITH OBLIQUE EX. D/ (1326) ? CLINICAL INFORMATION: ? M54.42/M54.41 CHRONIC BILATERAL LOW BACK PAIN ? W/BILATERAL SCIATICA ? INDICATION: M54.42/M54.41 CHRONIC BILATERAL LOW BACK PAIN, ? W/BILATERAL SCIATICA. ? COMPARISON: None. ? TECHNIQUE: AP, lateral and bilateral oblique views of the lumbar ? spine were obtained. ? FINDINGS: ? There is a mild scoliosis of the thoracolumbar spine. There are mild ? degenerative changes within the sacroiliac joints. Mild degenerative ? changes are present within the lumbar spine. No fracture or ? subluxation is seen. Bone density is normal. ? IMPRESSION: Mild degenerative spondylosis of the lumbar spine. ? REPORT SIGNED IN OTHER VENDOR SYSTEM 05/15/2019 ?Reported By: Sesar Chisholm MD ? CC: ? Transcribed Date/Time: 05/15/2019 (1417) ? Battery Technician: ? Printed Date/Time: 05/15/2019 (940) ? PAGE 1 ? Signed Report ? Procedure Note Sesar Chisholm MD - 05/15/2019 EXAM: RADIOLOGY/LUMBAR SPINE WITH OBLIQUE EX. D/ (1326) CLINICAL INFORMATION: M54.42/M54.41 CHRONIC BILATERAL LOW BACK PAIN W/BILATERAL SCIATICA INDICATION: M54.42/M54.41 CHRONIC BILATERAL LOW BACK PAIN, W/BILATERAL SCIATICA. COMPARISON: None. TECHNIQUE: AP, lateral and bilateral oblique views of the lumbar spine were obtained. FINDINGS: There is a mild scoliosis of the thoracolumbar spine. There aremild degenerative changes within the sacroiliac joints. Milddegenerative changes are present within the lumbar spine. No fracture or subluxation is seen. Bone density is normal. IMPRESSION: Mild degenerative spondylosis of the lumbar spine. REPORT SIGNED IN OTHER VENDOR SYSTEM 05/15/2019 Reported By: Sesar Chisholm MD CC: Transcribed Date/Time: 05/15/2019 (1417) Battery Technician: Printed Date/Time: 05/15/2019 (1418) PAGE 1 Signed Report us Edward Vásquez MD IMG DIAGNOSTIC IMAGING ORDERAB LES Final Result * XR HIPS BILATERAL 3-4 VIEWS (05/15/2019 14:16 EST) Anatomical Region Laterality Modality Lower Extremities Radiographic I maging 05/15/2019 14:1 3 EST Narrative 05/15/2019 14:16 EST ? EXAM: RADIOLOGY/HIPS BILATERAL 3-4 VIEWS ??EX. D/ (1326) ? CLINICAL INFORMATION: ? M25.551/M25.552 CHRONIC HIP PAIN BILATERAL ? INDICATION: M25.551/M25.552 CHRONIC HIP PAIN BILATERAL . ? COMPARISON: None. ? TECHNIQUE: AP and lateral view of the right and left hips. ? FINDINGS: ? Both hip joint spaces are well-maintained. There are findings ? 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 bilaterally but worse on the left. No fracture or osteonecrosis is ? identified. There are degenerative changes within the lower lumbar ? spine, both sacroiliac joints and the pubic symphysis. There is ? amorphous calcification within the soft tissues at the superior edge ? 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 Calcifications within the pelvis bilaterally are ? consistent with phleboliths. ? IMPRESSION: No acute bone or joint abnormality. ? REPORT SIGNED IN OTHER VENDOR SYSTEM 05/15/2019 ?Reported By: Sesar Chisholm MD ? CC: ? Transcribed Date/Time: 05/15/2019 (4190) ? Battery Technician: ? Printed Date/Time: 05/15/2019 (4556) ? PAGE 1 ? Signed Report ? Procedure Note Sesar Chisholm MD - 05/15/2019 EXAM: RADIOLOGY/HIPS BILATERAL 3-4 VIEWS EX. D/ (8846) CLINICAL INFORMATION: M25.551/M25.552 CHRONIC HIP PAIN BILATERAL INDICATION: M25.551/M25.552 CHRONIC HIP PAIN BILATERAL . COMPARISON: None. TECHNIQUE: AP and lateral view of the right and left hips. FINDINGS: Both hip joint spaces are well-maintained. There are findings suspicious for mild cam-type femoroacetabular impingementmorphology, bilaterally but worse on the left. No fracture or osteonecrosis is identified. There are degenerative changes within the lower lumbar spine, both sacroiliac joints and the pubic symphysis. There is amorphous calcification within the soft tissues at the superioredge of the left greater trochanter consistent with gluteus minimus calcific tendinitis. Calcifications within the pelvis bilaterallyare consistent with phleboliths. IMPRESSION: No acute bone or joint abnormality. REPORT SIGNED IN OTHER VENDOR SYSTEM 05/15/2019 Reported By: Sesar Chisholm MD CC: Transcribed Date/Time: 05/15/2019 (1418) Battery Technician: Printed Date/Time: 05/15/2019 (3701) PAGE 1 Signed Report Edward Vásquez MD IMG DIAGNOSTIC IMAGING ORDERAB LES Final Result documented in this encounter Visit Diagnoses Diagnosis Chronic hip pain, bilateral- Primary Chronic bilateral low back pain with bilateral sciatica documented in this encounter Historical Medications * This list may reflect changes made after this encounter. omeprazole (PRILOSEC) 20 mg capsule Take 20 mg by mouth daily. added in this encounter Care Teams Record Label Intern Relationship Specialty Start Date End Date Shaka Younger MD [address] [place] [address] PCP - General 09/29/10 documented as of this encounter
--- OUTSIDE RECORDS SUMMARY | 2024-05-02 10:25 | XMS_ITS | Encounter Summary ---
Author Organization [facility] Address [address] [place] [address] Care Team Providers Care Wall Mirror Department Supervisor Name Role Phone Shaka Younger MD Primary Care Provider [phone] Reason for Visit * Reason Comments Urinary Incontinence Pelvic Organ Prolapse * Referral (Routine) - Receiving Office to Obtain Authorization Specialty Diagnoses / Procedures Referred By Contdavid chamorro Referred To Contact Pelvic Medicine Diagnoses Bladder prolapse, congenital Urinary incontinence Elaine Pal, PRODUCT DEVELOPMENT MANAGER [address] [place] [address] Phone: tel: fax: [facility] Medicine [facility] Reconstructive Surgery - Medical Office [address] [address] Phone: tel: fax: Referral ID Status Reason Start Date Expiration Date Visits Requested Visits Authorized [id number] Receiving Office to Obtain Authorization 1 1 Encounter Details Date Type Department Care Team (Latest Contact Info) Description 10/30/2019 9:15 EDT Telemedicine [facility] Medicine [facility] Re[facility]ive Surgery - Medical Office Building [address] [id number] Sharla Perdomo MD [address] [place] [address] Medical Office Building, [address] [phone] Urinary incontinence, unspecified type (Primary Dx); Female genital prolapse, unspecified type Social History Tobacco Use Types Packs/Day Years [...] on file documented as of this encounter Progress Notes * Sharla Perdomo MD - 10/30/2019 0915 EDT [facility] FEMALE EXAMINATION Patient: Adrianna Jeffers is an 49 y.o. female seen for consultation at the request of Elaine Pal APRN for Urinary Incontinence. Today's visit was provided through telemedicine audio-visual conferencing: Consent: The concept of telemedicine?? has been described to the patient. Patient has been informed of theanticipated benefits and possible risks. Patient understands the information provided regarding telemedicine, has had the opportunity to ask questions about this information, and all questions have been answered to patient's satisfaction. Patient consents for the use of telemedicine in his/her medical care and authorizes the transmission of any relevant medical information to providers and their staff involved in patient's medical or mental health care. The location of the patient : Home The location of the provider: Office The following people (and their respective roles) participated in today's encounter: Adrianna Be Zeyad, patient and Sharla Perdomo MD, provider The audio-video application used to conduct the visit was [employer]OOM Video. I spent a total of 40 minutes in preparation for visit and with Adrianna Jeffers today and 40 minutes of that time was spent in counseling and coordination of care as described in the progress note. HPI 49 yo P7( ages 11- 31 yrs) with worsening prolapse and urinary frequency. Some urinary incontinence. Denies fecal incontinence. Pt states she had laparoscopic tubal ligation after her 4th delivery. Years later had laparotomy and tubal reversal at [facility] with Dr. García. Had 3 more deliveries, and repeat laparoscopic tubal ligation. Pt states there was a lot of scar tissue. Cystoscopy and renal US(both normal per pt report) [address] Elias for episode of gross hematuria. ROS Pelvic pain: No Dyspareunia: not currently sexually active: Recurrent UTI: No Hematuria: per HPI A review of the patient's medical, social, and family history along with medications and allergies was performed. OB History No obstetric history on file. Past Medical History: Diagnosis Date ??? Diabetes mellitus ([facility]) Pre-diabetes , last HgbA1c 6.4% Past Surgical History: Procedure Laterality Date ??? BUNIONECTOMY Bilateral Family History Problem Relation Age of Onset ??? Diabetes Mother ??? Kidney Failure Mother ??? Esophageal Cancer Father Social History Socioeconomic History ??? Marital status: Spouse name: Not on file ??? Number of children: Not on file ??? Years of education: Not on file ??? Highest education level: Not on file Occupational History ??? Not on file Social Needs ??? Financial resource strain: Not on file ??? Food insecurity Worry: Not on file Inability: Not on file ??? Transportation needs Medical: Not on file Non-medical: Not on file Tobacco Use ??? Smoking status: Never Smoker ??? Smokeless tobacco: Never Used Substance and Sexual Activity ??? Alcohol use: Not on file ??? Drug use: Not on file ??? Sexual activity: Not on file Lifestyle ??? Physical activity Days per week: Not on file Minutes per session: Not on file ??? Stress: Not on file Relationships ??? Social connections Talks on phone: Not on file Gets together: Not on file Attends methodist service: Not on file Active member of club or organization: Not on file Attends meetings of clubs or organizations: Not on file Relationship status: Not on file ??? Intimate partner violence Fear of current or ex partner: Not on file Emotionally abused: Not on file Physically abused: Not on file Forced sexual activity: Not on file Other Topics Concern ??? Not on file Social History Narrative ??? Not on file Current Outpatient Medications Medication ??? omeprazole (PRILOSEC) 20 mg capsule No current facility-administered medications for this visit. No Known Allergies A 15 point Review of Systems was performed. Positives related to the patient???s complaint are listed below; all others are either negative or documented in the patient???s scanned Review of Systems. PELVIC EXAM Deferred: ZOOM visit Vitals There were no vitals taken for this visit. General Physical Exam Constitutional/General: Oriented to person, place, and time. Appears well- developed and well-nourished. HEENT: Head: normocephalic and atraumatic Eyes: conjunctivae and EOM normal Nose: nose normal Throat/mouth: oropharynx clear and moist Neck: normal range of motion Pulmonary: effort normal Abdomen: not assessed Musculoskeletal: normal range of motion Skin: not assessed Neuro/Psych: alert and oriented to person, place, and time Labs Assessment Adrianna Jeffers is a 49 y.o.. female with symptomatic pelvic floor prolapse, urinary frequency. Plan Office Urodynamic Testing: uroflow, post void residual and pressure flow study Cystoscopy F/U for EXAM. Consider scheduling CT UROGRAM based on surgical history if surgery considered. Sharla Perdomo MD documented in this encounter Plan of Treatment Not on file documented as of this encounter Visit Diagnoses Diagnosis Urinary incontinence, unspecified type- Primary Female genital prolapse, unspecified type documented in this encounter Care Teams Wall Mirror Department Supervisor Relationship Specialty Start Date End Date Shaka Younger MD [address] [place] [address] PCP - General 09/29/10 documented as of this encounter
--- OUTSIDE RECORDS SUMMARY | 2024-05-02 10:25 | XMS_ITS | Encounter Summary ---
Author Organization [facility] Address [address] [place] [address] Care Team Providers Care Leather Tacker Name Role Phone Unavailable Primary Care Provider Unavailabl e Encounter Details Date Type Department Care Team (Late st Contact Info) Description 11/08/2006 Results Only [facility] - Maple conversion [address] [place] [address] Barry García MD [address] [place], [place] [id number] Social History Tobacco Use Types Packs/Day Years [...] Priority Date/Time Associated Diagnosis Comments CYTOPATHOLOGY Routine 11/08/2006 0:00 EDT documented in this encounter Results * CYTOPATHOLOGY (11/08/2006 0:00 EDT) Pathology Report: CYTOPATHOLOGY REPORT Reports generated via electronic interface contain original data; however they are lacking the format of the original report. Caution should be taken when reading/interpreti ng unformatted reports. Name: ? ELIESER DUGGAN ? Accession #: ? [id number] : ? 1970 (Age: 36) ??F ?Collect Date: ? 11/08/2006 Location: ? [facility] ? Receive Date: ? 11/10/2006 Provider: ?Sana GARCÍA MD Copy to: ? Specimen/Source: ?ThinPrep Pap Test, Cervix, processed on [employer] ThinPrep Imaging System, with manual evaluation Last Menstrual Period: ? Menstrual/Pregnanc y Status: ? Other: ? HPVDX - HPV testing requested regardless of diagnosis on current ThinPrep Pap test. Additional clinical information: > 5 partners before 16 ? SPECIMEN ADEQUACY ? Satisfactory for Evaluation - transformation zone component present GENERAL CATEGORIZATION ? Negative for Intraepithelial Lesion or Malignancy ? Document reviewed and electronically signed by: ? Stacy Castillo, SCT(ASCP) ? Report Date: ??11/16/2006 11:46 End of Report [facility] 11/08/2006 11/10/2006 Barry García MD PATHOLOGY ORDERABLES Final Re laura [facility] [address] [place] [address] documented in this encounter Visit Diagnoses Not on filedocumented in this encounter
--- OUTSIDE RECORDS SUMMARY | 2024-05-02 10:25 | XMS_ITS | Encounter Summary ---
Author Organization [facility] Address [address] [place] [address] Care Team Providers Care Stone Spreader Operator Name Role Phone Shaka Younger MD Primary Care Provider [phone] Reason for Visit * Reason Onset Date Comments Orders (Non Pre-visit) 04/01/2020 Encounter Details Date Type Department Care Team (Late st Contact Info) Description 04/01/2020 Telephone [facility] [address] [place] [id number] Raven Aguila RN Orders (Non Pre-visit) Social History Tobacco Use Types Packs/Day Years [...] as of this encounter Miscellaneous Notes * Addendum Note - Raven Aguila RN - 04/01/2020 1412 ESTAddended by: RAVEN AGUILA on: 04/01/2020 14:12 Modules accepted: Orders * Telephone Encounter - Raven Aguila RN - 04/01/2020 1412 EST Created new order for Dr. Farmer to sign. * Telephone Encounter - Raven Aguila RN - 04/01/2020 1152 EST Need corrected order for lumbar spine 4+ views ordered in Apr [address] Vásquez did not get around to changing the order. Can you please take care of this for me? I do not know how to do this. documented in this encounter Plan of Treatment Not on file documented as of this encounter Visit Diagnoses Diagnosis Chronic low back pain with bilateral sciatica, unspecified back pain laterality- Primary Chronic low back pain with sciatica, sciatica laterality unspecified, unspecified back pain laterality documented in this encounter Care Teams Stone Spreader Operator Relationship Specialty Start Date End Date Shaka Younger MD [address] [place] [address] PCP - General 09/29/10 documented as of this encounter
--- OUTSIDE RECORDS SUMMARY | 2024-05-02 10:25 | XMS_ITS | Encounter Summary ---
Author Organization [facility] Address [address] [place] [address] Care Team Providers Care Environmental Health And Safety Intern Name Role Phone Shaka Younger MD Primary Care Provider Encounter Details Date Type Department Care Team (Late st Contact Info) Description 01/06/2020 Lab Requisition [facility] Pathology & Laboratory Medicine - [address] [address] Outr Resulting Lab, Provider Social History Tobacco [...] Date/Time Associated Diagnosis Comments LYME AB Routine 01/05/2020 16:40 EDT ZZLYME IMMUNOBLOT CONFIRMATION Today 01/05/2020 16:40 EDT documented in this encounter Results * LYME IMMUNOBLOT CONFIRMATION (01/05/2020 16:40 EDT) [facility] IGG ImmunoBlot Negative Negative 01/08/2020 15:[address] [facility] Lyme IGG Bands p41 01/08/2020 15:[address] [facility] Lyme IgM ImmunoBlot Negative Negative 01/08/2020 15:[address] [facility]yme IGM Band(s) p23 01/08/20 20 15:[address] [facility] Lyme Immunoblot Interpretation See Comment 01/08/2020 15:[address] [facility] Blood VENOUS BLOOD / Unknown 01/05/2020 16:40 EDT 01/06/2020 17:[address] [facility] - 01/08/2020 15:22 EDT Specific serologic response to B. burgdorferi infection is not detected. ??This may indicate lack of infection, lack of seroconversion or low/undetectable antibody levels to B. burgdorferi. ??If clinically indicated, a new serum specimen should be submitted in 7-14 days. CDC criteria require greater than or equal to the presence of 5 bands for IgG or greater than or equal to 2 bands for IgM for the Immunoblot to be considered positive. Bands may be detected in patients without Lyme Disease. Patterns not meeting CDC criteria should be interpreted with caution. ??Per CDC guidelines, Immunoblot testing should only be performed on specimens that are positive or equivocal by Immunoassay. Performing only the Immunoblot increases the possibility of false positive results. Results should be considered positive only when both the Immunoassay and the Immunoblot are positive. us Provider Outr Resulting Lab IMMUNOLOGY AND SEROL OGY ORDERABLES Final Result [facility] [address] [place] [address] * (ABNORMAL) LYME AB (01/05/2020 16:40 EDT) [facility] Lyme Ab Positive( A) Negative 01/07/2020 11:[address] [facility] Comment: Lyme Immunoblot confirmation added by reflex. New 3rd generation assay in use 08/29/2019 The [employer] Lyme Liaison Lyme Total Antibody Plus assay contains antigens from Borrelia burgdorferi, Borrelia garinii, and Borelia afzelli. ??Results from the second-step western blots that detect only B. burgdorferi specific antigens should be interpreted with caution. Blood VENOUS BLOOD / Unknown 01/05/2020 16:40 EDT 01/06/2020 17:03 EDT us Provider Outr Resulting Lab IMMUNOLOGY AND SEROL OGY ORDERABLES Final Result [facility] [address] [place] [address] documented in this encounter Visit Diagnoses Not on filedocumented in this encounter Care Teams Environmental Health And Safety Intern Relationship Specialty Start Date End Date Shaka Younger MD [address] [place] [address] PCP - General 09/29/10 documented as of this encounter
--- OUTSIDE RECORDS SUMMARY | 2024-05-02 10:25 | XMS_ITS | Encounter Summary ---
Author Organization [facility] Address [address] [place] [address] Care Team Providers Care Slasher Tender Name Role Phone Unavailable Primary Care Provider Unavailabl e Encounter Details Date Type Department Care Team (Late st Contact Info) Description 06/27/2002 Results Only [facility] - Maple conversion [address] [place] [address] Barry García MD [address] [place], [place] [id number] Social History Tobacco Use Types Packs/Day Years [...] Priority Date/Time Associated Diagnosis Comments CYTOPATHOLOGY Routine 06/27/2002 0:00 EDT documented in this encounter Results * CYTOPATHOLOGY (06/27/2002 0:00 EDT) Pathology Report: CYTOPATHOLOGY REPORT Reports generated via electronic interface contain original data; however they are lacking the format of the original report. Caution should be taken when reading/interpreti ng unformatted reports. Name: ? ELIESER DUGGAN ? Accession #: ? [id number] : ? 1970 (Age: 32) ??F ?Collect Date: ? 06/27/2002 Location: ? [facility] ? Receive Date: ? 07/02/2002 Provider: ?Sana GARCÍA MD Copy to: ? Specimen/Source: ?Conventional Pap Test, Cervix/Endocervix Last Menstrual Period: ? Hormonal/Contracep tive Status: ? Depo-Provera ? SPECIMEN ADEQUACY ? Satisfactory for Evaluation - transformation zone component present - scant squamous epithelial component GENERAL CATEGORIZATION ? Negative for Intraepithelial Lesion or Malignancy ? Document reviewed and electronically signed by: ? Ligia Lal, [place](ASCP) ? Report Date: ??07/04/2002 13:49 End of Report [facility] 06/27/2002 07/02/2002 us Barry García MD PATHOLOGY ORDERABLES Final Re sult [facility] [address] [place] [address] documented in this encounter Visit Diagnoses Not on filedocumented in this encounter
--- OUTSIDE RECORDS SUMMARY | 2024-05-02 10:25 | XMS_ITS | Encounter Summary ---
Author Organization [facility] Address [address] [place] [address] Care Team Providers Care Pneumatic Riveter Name Role Phone Shaka Younger MD Primary Care Provider [phone] Reason for Visit * Reason Onset Date Comments Other 05/21/2019 xray results Encounter Details Date Type Department Care Team ([facility] st Contact Info) Description 05/21/2019 Telephone [facility] Neu[facility] Clinic [address] [place] [address] Edawrd Vásquez MD [address] [place] [phone] Other (xray results) Social History Tobacco Use Types Packs/Day Years Used Date Smoking Tobacco: Never Smokeless Tobacco: Never Comments Unknown Sex and Gender Information Value Date Recorded Sex Assigned at Not on file Legal Sex Female 18:13 EST Gender Identity Not on file Sexual Orientation Not on file documented as of this encounter Miscellaneous Notes * Telephone Encounter - Edward Vásquez MD - 06/20/2019 3620 EDT Unfortunately, from what I understand, PT will not be available temporarily due to Covid-19 social distancing restrictions to help mitigate spread in the community. Measures she can undertake on her own until PT, minimally invasive modalities (SHASHI, Facet Injections, etc) become more available include stretching exercises, but avoiding hyperextension of lower back, avoiding lifting, pushing, or pulling objects weighing in excess of 20 lbs. Should also avoid exercises that might exert vertical compressive forces on the spinal axis: No running, jumping, weight lifting, horseback riding, no trampoline, no parachuting, no volleyball, basketball or other contact sports. When sleeping, may be more comfortable sleeping lateral decubitus position with pillow between legs, also can sleep supine with thighs and knees flexed with pillows underneath. Applications of ice packs for periods of 10-15 minutes at a time, 3-4x daily can help alleviate symptoms of spasm when severe. Alternating withlocal moist heat can also help. * Telephone Encounter - Raven Lazo RN - 05/23/2019 1022 EST Left message for patient if she would like PT please call back and I will place the order per Dr. Vásquez. * Telephone Encounter - Raven Lazo RN - 05/22/[address] Vásquez. He agreed with interpretation of films and suggested PT. I will call patient and place the order if she is agreeable. * Telephone Encounter - Raven Lazo RN - 05/21/2019 1622 EST Spoke with Adrianna - interpreted films as below. Discussed ways to treat the pain includinf OTC analgesics, lotions and heat and cold treatments. Prescripted Gabapentin might work - hesitant to take but I assured it was not addictive. Suggested stretching. Appointment made for f/u on 06/15/2019. I will speak with Dr. Vásquez and perhaps he has other recommendations I can pass along. * Telephone Encounter - Raven Lazo RN - 05/21/2019 1600 EST Films indicate no acute injuries, some degenerative changes in her hips and lumbar spine and SI joints, L>R, which may be causing sciatica pain. * Telephone Encounter - Nadya Reid - 05/21/2019 1550 EST Pt called looking for xray results, she stated that her PCP is waiting for them, she is aware that Dr Vásquez is out I=of the office this week, she can be reached at [phone] documented in this encounter Plan of Treatment Not on file documented as of this encounter Visit Diagnoses Not on filedocumented in this encounter Care Teams Pneumatic Riveter Relationship Specialty Start Date End Date Shaka Younger MD [address] [place] [address] PCP - General 09/29/10 documented as of this encounter
--- OUTSIDE RECORDS SUMMARY | 2024-05-02 10:25 | XMS_ITS | Encounter Summary ---
Author Organization [facility] Address [address] [place] [address] Care Team Providers Care Welding Technician Name Role Phone Shaka Younger MD Primary Care Provider Encounter Details Date Type Department Care Team (Late st Contact Info) Description 03/03/2020 Lab Requisition [facility] Pathology & Laboratory Medicine - [address] [address] Sandy Cain [address] [place] [phone] Encounter for other general examination Social History [...] Date/Time Associated Diagnosis Comments SURGICAL PATHOLOGY Today 03/03/2020 11 :35 EST Encounter for other general examination documented in this encounter Results * SURGICAL PATHOLOGY (03/03/2020 11:35 EST) Final Diagnosis A. ENDOMETRIUM, BIOPSY: - Strips of inactive/atrophic endometrium. - Scant fragments of benign endocervical tissue. 03/06/2020 12:26 EST [facility] Diagnosis Comment Energy Sales Broker slides of this case were reviewed at the intradepartmental consultation conference. 03/06/2020 12:26 [facility] Attestation There was significant resident/fellow involvement in the diagnostic evaluation of this case. By the signature below, the attending physician certifies that they have personally conducted a gross and/or microscopic examination of the described specimens and rendered or confirmed the above diagnosis. 03/06/2020 12:26 [facility] at 1226 Clinical History Thickened endometrium 03/06/2020 12:26 [facility] Gross Description A. Received in formalin labelled with proper patient identification (initials G, K) and endometrium are scant flecks of camarillo-white possible tissue aggregating 0.1 cm in greatest dimension. Entirely submitted in A1 however may not survive processing. ARLENE VALENTE([facility]) 03/03/2020 16:32 03/06/2020 12:26 [facility] Resident/Fell ow: Jaycob Barrera DO 03/06/2020 12:26 [facility] Performing Lab [facility] 03/06/2020 12:26 [facility] Scanned Images 03/06/2020 12:26 [facility] Tissue ENTIRE ENDOMETRIUM / Unknown 03/03/2020 11:35 EST 03/03/2020 15:55 EST Sandy Ant PATHOLOGY ORDERABLES Final Resul t Performing Organization Address City/State/[facility] Co de Phone Number [facility] [address] [place] [address] documented in this encounter Visit Diagnoses Diagnosis Encounter for other general examination documented in this encounter Care Teams Welding Technician Relationship Specialty Start Date End Date Shaka Younger MD [address] [place] [address] PCP - General 09/29/10 documented as of this encounter
--- OUTSIDE RECORDS SUMMARY | 2024-05-02 10:25 | XMS_ITS | Encounter Summary ---
Author Organization [facility] Address [address] [place] [address] Care Team Providers Care Propagator Laborer Name Role Phone Shaka Younger MD Primary Care Provider [phone] Encounter Details Date Type Department Care Team (Late st Contact Info) Description 12/08/2021 Lab Requisition [facility] Pathology & Laboratory Medicine - [address] [address] Outr Resulting Lab, Provider Social History Tobacco [...] Procedure Name Priority Date/Time Associated Diagnosis Comments URINE FRFUWER-WE-BSWLSUUT NE RATIO (ACR) Routine 12/08/2021 12:10 EDT documented in this encounter Results * URINE QXIRTRO-QC-[id number] RATIO (ACR) (12/08/2021 12:10 EDT) Albumin, Urine <0.6 See Note mg/dL 12/08/2021 22:07 EDT [facility] Comment: NOTE: Reference range not established Creatinine, Urine 60.8 See Note mg/dL 12/08/2021 22:07 EDT [facility] Comment: NOTE: Reference range not established Lab Urine Albumin to Creatinine Ratio 12/08/2021 22:07 EDT [facility] Comment: Unable to calculate due to albumin result <0.6. Urine Albumin/Creatinine Ratio: Normal: <30 ug/mg Creatinine Moderately increased albuminuria: 30-300 ug/mg Creatinine Severley increased albuminuria: >300 ug/mg Creatinine Urine URINE SPECIMEN COLLECTION, CLEAN CATCH / Unknown 12/08/2021 12:10 EDT 12/08/2021 21:15 EDT us Provider Outr Resulting Lab CHEMISTRY & BLOOD GA S ORDERABLES Final Result Performing Organization Address City/State/[facility] Co de Phone Number [facility] [address] [place] [address] documented in this encounter Visit Diagnoses Not on filedocumented in this encounter Care Teams Propagator Laborer Relationship Specialty Start Date End Date Shaka Younger MD [address] [place] [id number] PCP - General 09/29/10 documented as of this encounter
--- OUTSIDE RECORDS SUMMARY | 2024-05-02 10:25 | XMS_ITS | Encounter Summary ---
Author Organization [facility] Address [address] [place] [address] Care Team Providers Care Retail Shift Supervisor Name Role Phone Shaka Younger MD Primary Care Provider [phone] Encounter Details Date Type Department Care Team (Late st Contact Info) Description 05/22/2020 Lab Requisition [facility] Pathology & Laboratory Medicine - [address] [address] Sandy Cain [address] [place] [phone] Encounter for other general examination Social History [...] Date/Time Associated Diagnosis Comments SURGICAL PATHOLOGY Today 05/22/2020 10 :00 EST Encounter for other general examination documented in this encounter Results * SURGICAL PATHOLOGY (05/22/2020 10:00 EST) Final Diagnosis A. UTERUS, CERVIX, AND FALLOPIAN TUBES, TOTAL HYSTERECTOMY WITH BILATERAL SALPINGECTOMY: - Endometrium: - Benign endometrial polyp. - Background weakly proliferative endometrium. - Myometrium: - Adenomyosis. - Cervix: - Prolapse changes. - Benign endocervical polyp. - Serosa: - No significant pathologic features. - Fallopian tubes: - Hydrosalpinx of one fallopian tube. - Other fallopian tube with no significant pathologic features. 05/27/2020 9:44 [facility] Attestation There was significant resident/fellow involvement in the diagnostic evaluation of this case. By the signature below, the attending physician certifies that they have personally conducted a gross and/or microscopic examination of the described specimens and rendered or confirmed the above diagnosis. 05/27/2020 9:44 [facility] at 0944 Clinical History Pelvic organ prolapse, desire for sterilization 05/27/2020 9:44 [facility] Gross Description A. Received in formalin labelled with proper patient identification (initials G, K) and uterus and fallopian tubes is an intact uterus and cervix (66 g, 9.2 cm cervix to fundus x 4.5 cm cornu to cornu x 2.7 cm anterior to posterior) with 2 detached presumed fallopian tubes (longer: 4.6 cm in length x 0.9 cm in diameter, shorter: 2.0 cm in length x 0.5 cm in diameter) in the same container The uterine serosa is gonzalez-brown and smooth. The endometrium is gonzalez brown and granular and has a thickness of 0.1 cm. On the anterior left endometrium is a possible smooth brown polyp (1.8 x 1.3 x 0.5 cm). The myometrium is gonzalez-pink and trabeculated and ranges from 1.3 cm to 1.4 cm in thickness. In the anterior right myometrium is a subserosal nodule (0.9 x 0.7 x 0.5 cm) with gonzalez-white whorled cut surfaces. The ectocervix is gonzalez and smooth, and the endocervix is gonzalez-brown and furrowed. The the longer presumed fallopian tube consists of a tubular structure with a blind distal end without fimbriae and gonzalez translucent serosa. Sectioning discloses a cystically dilated lumen containing clear yellow gelatinous material. The shorter presumed fallopian tube consists of a tubular structure with possible fimbriae at the distal end and gonzalez-camarillo serosa bearing multiple small gonzalez-white semi translucent nodules. Sectioning discloses a pinpoint lumen and cysts filled with gelatinous gonzalez-white material. Semiautomatic Stitcher Operator sections are submitted as follows: BLOCK BELCHER A1- anterior cervix A2- anterior lower uterine segment A3- anterior endomyometrium with subserosal nodule A4- anterior full-thickness endomyometrium, including portion of polyp A5-A6- remainder of polyp A7- additional anterior myometrium A8- posterior cervix A9- posterior lower uterine segment A10- posterior full-thickness endomyometrium A11- longer presumed fallopian tube, bisected blind end and 1 cross-section A12- shorter presumed fallopian tube, bisected fimbriated end and 1 cross-section Jaycob Barrera, DO 05/23/2020 16:12 05/27/2020 9:[address] [facility] Resident/Suman w: Jaycob Barrera, DO 05/27/2020 9:[address] [facility] Performing Lab [facility] 05/27/2020 9:[address] [facility] Scanned Images 05/27/2020 9:[address] [facility] Tissue SPECIMEN FROM UTERUS / Unknown 05/22/2020 10:00 EST 05/22/2020 18:14 EST Sandy Cain PATHOLOGY ORDERABLES Final Resul t [facility] [address] [place] [address] documented in this encounter Visit Diagnoses Diagnosis Encounter for other general examination documented in this encounter Care Teams Retail Shift Supervisor Relationship Specialty Start Date End Date Shaka Younger MD [address] [place] [address] PCP - General 09/29/10 documented as of this encounter
--- OUTSIDE RECORDS SUMMARY | 2024-05-02 10:25 | XMS_ITS | Encounter Summary ---
Author Organization [facility] Address [address] [place] [address] Care Team Providers Care Registered Dietetic Technician Name Role Phone Unavailable Primary Care Provider Unavailabl e Encounter Details Date Type Department Care Team (Late st Contact Info) Description 12/14/2007 Before PRISM Converted Visit (Maple) [facility] - Maple conversion [address] [place] [address] Barry García MD [address] [place] [address] Social History Tobacco Use Types Packs/Day Years [...] Comments HPV DETECTION, HIGH RISK TYPES Routine 12/14/2007 11:39 EDT CYTOPATHOLOGY Routine 12/14/2007 0:00 EDT documented in this encounter Results * HUMAN PAPILLOMA VIRUS DNA TEST (12/14/2007 11:39 EDT) Specimen Description Cervix, ThinPrep vial [facility] Result Negative for HPV types 16, 18, 31, 33, 35, 39, 45, 51, 52, 56, 58, 59, and 68. [facility] Report Status Final 12/28/2007 [facility] 12/14/2007 11:3 9 EDT 12/21/2007 11:39 EDT us Barry García MD MICROBIOLOGY - GENERAL RAMO PAGE Final Result [facility] [address] [place] [address] * CYTOPATHOLOGY (12/14/2007 0:00 EDT) Pathology Report: CYTOPATHOLOGY REPORT ? Reports generated via electronic interface contain original data; ? however they are lacking the format of the original report. ? Caution should be taken when reading/interpreti ng unformatted reports. ? Name: ? ELIESER DUGGAN ? Accession #: ? [id number] ? : ? 1970 (Age: 37) ??F ?Collect Date: ? 12/14/2007 ? Location: ? [facility] ? Receive Date: ? 12/15/2007 ? Provider: ?L JESSICA GARCÍA MD ? Copy to: ? Specimen/Source: ?Pap Test, Cervix, ThinPrep Imaging System with manual ?? evaluation ? Last Menstrual Period: ? 9/6/08 ? Other: ? Additional clinical information: , 5 partners intercourse before 16 ? HPVDX - HPV testing requested regardless of diagnosis on current ThinPrep Pap ?? test. ? SPECIMEN ADEQUACY ? Satisfactory for Evaluation ? - transformation zone component present ? GENERAL CATEGORIZATION ? Negative for Intraepithelial Lesion or Malignancy ? Document reviewed and electronically signed by: ? Reid Holloway, CT(ASCP) ? Report Date: ??12/20/2007 13:36 ? End of Report ? [facility] 12/14/2007 12/15/2007 us Barry García MD PATHOLOGY ORDERABLES Final Re sult [facility] [address] [place] [address] documented in this encounter Visit Diagnoses Not on filedocumented in this encounter
--- OUTSIDE RECORDS SUMMARY | 2024-05-02 10:25 | XMS_ITS | Encounter Summary ---
Author Organization [facility] [place] [address] Care Team Providers Care Gas Meter Repairer Name Role Phone Mary Lou Fletcher APRN Primary Care Provider [phone] Encounter Details Date Type Department Care Team (Late st Contact Info) Description 2023 Telephone Obstetrics [place] [phone] Roxana Coyle Social History Tobacco Use Types Packs/Day Years Used Date Smoking Tobacco: Never Assessed Sex and Gender Information Value Date Recorded Sex Assigned at Not on file Gender Identity Not on file Sexual Orientation Not on file documented as of this encounter Plan of Treatment Not on file documented as of this encounter Visit Diagnoses Not on filedocumented in this encounter Care Teams Gas Meter Repairer Relationship Specialty Start Date End Date Mary Lou Fletcher [place] [address] [place] [address] PCP - General Family Medicine 02/17/23 documented as of this encounter
--- OUTSIDE RECORDS SUMMARY | 2024-05-02 10:25 | XMS_ITS | Encounter Summary ---
Author Organization [facility] Address [address] [place] [address] Care Team Providers Care Pipe Threading Machine Operator Name Role Phone Shaka Younger MD Primary Care Provider [phone] Encounter Details Date Type Department Care Team (Late st Contact Info) Description 09/13/2022 Lab Requisition [facility] Pathology & Laboratory Medicine - [address] [address] Outr Resulting Lab, Provider Social History Tobacco [...] Procedure Name Priority Date/Time Associated Diagnosis Comments CHLAMYDIA/N. GONORRHOEAE AMPLIFIED NUCLEIC ACID Routine 09/13/2022 15:30 EDT documented in this encounter Results * CHLAMYDIA/N. GONORRHOEAE AMPLIFIED RNA (09/13/2022 15:30 EDT) Neisseria gonorrhoeae Result Negative Negative 09/15/2022 13:56 EDT [facility] Chlamydia trachomatis Result Negative Negative 09/15/2022 13:56 EDT [facility] Urine URINE / Unknown 09/13/2022 1 5:30 EDT 09/14/2022 23:09 EDT Narrative [facility] - 09/15/2022 13:56 EDT A first catch urine specimen is acceptable for detection of Gonorrhea and Chlamydia, but might detect up to 10% fewer infections when compared with vaginal and endocervical swab samples. us Provider Outr Resulting Lab MICROBIOLOGY - GENER AL ORDERABLES Final Result [facility] [address] [place] [address] documented in this encounter Visit Diagnoses Not on filedocumented in this encounter Care Teams Pipe Threading Machine Operator Relationship Specialty Start Date End Date Shaka Younger MD [address] [place] [id number] PCP - General 09/29/10 documented as of this encounter
--- OUTSIDE RECORDS SUMMARY | 2024-05-02 10:25 | XMS_ITS | Encounter Summary ---
Author Organization [facility] Address [address] [place] [address] Care Team Providers Care Plate Drying Machine Tender Name Role Phone Shaka Younger MD Primary Care Provider Encounter Details Date Type Department Care Team (Late st Contact Info) Description 01/11/2020 Lab Requisition [facility] Pathology & Laboratory Medicine - [address] [address] Outr Resulting Lab, Provider Social History Tobacco [...] 1/2 ANTIGEN AND ANTIBODY, 4TH GENERATION Routine 01/10/2020 9:22 EDT documented in this encounter Results * HIV 1/2 ANTIGEN AND ANTIBODY, 4TH GENERATION (01/10/2020 9:22 EDT) HIV 1 and 2 Antibody/p24 Antigen, 4th Generation Negative Negative 01/14/2020 10:30 EDT [facility] Comment: If acute HIV-1 infection is suspected in a high risk ??patient, submit plasma specimen for HIV-1 RNA quantitation test. Fourth Generation assay performed on the Siemens Lystaur. Blood VENOUS BLOOD / Unknown 01/10/2020 9:22 EDT 01/11/2020 20:30 EDT us Provider Outr Resulting Lab IMMUNOLOGY AND SEROL OGY ORDERABLES Final Result [facility] [address] [place] [address] documented in this encounter Visit Diagnoses Not on filedocumented in this encounter Care Teams Plate Drying Machine Tender Relationship Specialty Start Date End Date Shaka Younger MD [address] [place] [address] PCP - General 09/29/10 documented as of this encounter
--- OUTSIDE RECORDS SUMMARY | 2024-05-02 10:25 | XMS_ITS | Clinical Summary ---
Author Organization [facility] Address [address] [place] [address] Care Team Providers Care Draw Tender Name Role Phone Shaak Younger MD Primary Care Provider Allergies No known active allergies Medications omeprazole (PRILOSEC) 20 mg capsule Take 20 mg by mouth daily. Active Surgical History Surgery Date Site/Laterality Comments BUNIONECTOMY Bilateral Medical History Medical History Date Comments Diabetes mellitus ([facility]) Pre -diabetes , last HgbA1c 6.4% Family History Medical History Relation Comments Esophageal Cancer Father Diabetes Mother Kidney Failure Mother Relation Status Comments Father Mother Social History Tobacco Use Types Packs/Day Years Used Date Smoking Tobacco: Never Smokeless Tobacco: Never Interpersonal Safety Answer Date Record ed Physically Hurt Never 10/21/2019 Verbally Threaten Not on file 10/21/2019 Comments Unknown Sex and Gender Information Value Date Recorded Sex Assigned at Not on file Legal Sex Female 18:13 EST Gender Identity Not on file Sexual Orientation Not on file Obstetrics History Last Filed Vital Signs Vital Sign Reading Time Taken Comments Blood Pressure 140/88 05/15/2019 1121 EST Pulse 70 05/15/2019 1121 EST Temperature - - Respiratory Rate - - Oxygen Saturation - - Inhaled Oxygen Concentration - - Weight 99.8 kg (220 lb) 05/15/2019 1121 EST Height 167.6 cm (5' 6) 05/15/2019 1121 EST Body Mass Index 35.51 05/15/2019 1121 EST Plan of Treatment Health Maintenance Due Date Last Done Comments Hepatitis B Vaccine (1 of 3 - 19+ 3-dose series) 1988 COVID-19 Vaccine (1 - 2024-2 5 season) 2023 Hepatitis C Screen Completed 09/13/2022, 1 04/30/2020, 02/27/2021, Additional history exists Procedures Procedure Name Priority Date/Time Associated Diagnosis Comments HEPATITIS C AB W REFLEX TO HCV RNA BY PCR Routine 09/13/2022 15:30 EDT from Last 3 Months or Most Recently Relevant to Health Maintenance Results * HEPATITIS C AB W REFLEX TO HCV RNA BY PCR (09/13/2022 15:30 EDT) Hep C Antibody Negative Negative 09/15/2022 14:21 EDT [facility] Blood VENOUS BLOOD / Unknown 09/13/2022 15:30 EDT 09/14/2022 17:19 EDT us Provider Outr Resulting Lab CHEMISTRY & BLOOD GA S ORDERABLES Final Result [facility] [address] [place] [address] from Last 3 Months or Most Recently Relevant to Health Maintenance [place] Care Teams Draw Tender Relationship Specialty Start Date End Date Shaka Younger MD [address] [place] [id number] [facility] - General 09/29/10
--- OUTSIDE RECORDS SUMMARY | 2024-05-02 10:25 | XMS_ITS | Encounter Summary ---
Author Organization [facility] Address [address] [place] [id number] Care Team Providers Care Team Sports Sales Associate Name Role Phone Shaka Younger MD Primary Care Provider [phone] Reason for Visit * Reason Comments Follow-up telemedicine visit Back Pain sciatica Shoulder Pain Hand numbness Encounter Details Date Type Department Care Team (Late st Contact Info) Description 06/27/2019 8:[address] [facility] [address] [place] [address] Edward Vásquez MD [address] [place] [phone] Bilateral hip pain (Primary Dx); Bilateral sciatica; Chronic pain of both shoulders; Bilateral hand numbness Social History Tobacco Use Types Packs/Day Years Used Date Smoking Tobacco: Never Smokeless Tobacco: Never Comments Unknown Sex and Gender Information Value Date Recorded Sex Assigned at Not on file Legal Sex Female 18:13 EST Gender Identity Not on file Sexual Orientation Not on file documented as of this encounter Progress Notes * Edward Vásquez MD - 06/27/2019 0800 EDT [facility] PATIENT NAME: Adrianna Jeffers PATIENT : 1970 PCP: Shaka Younger DATE OF SERVICE: 06/27/2019 CHIEF COMPLAINT: TELEMEDICINE VISIT for f/u bilateral hip pain, sciatica HISTORY OF PRESENT ILLNESS Adrianna Jeffers is called this morning for Telemedicine visit in lieu of [id number] encounter forfollow-up of bilateral hip pain and sciatica following her recent lower extremity EMG. This is donein accordance with the CDC recommendations for social distancing in light of the coronavirus pandemic to mitigate spread of Covid-19 through the community. This was explained to the patient in detail, she acknowledges understanding, and has given verbal consent to proceed. She continues to have bilateral hip and lower back pain traveling to lower extremities. Recently, she also has been experiencing shoulder pain and bilateral hand numbness. She does have a history of diabetes which is reportedly been well controlled. She has a recent hip x-rays that demonstrated a mild cam type femoral acetabular impingement more prominent on the left than on the right. 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 Plain x-rays of the lumbosacral spine did demonstrated degenerative changes of the lower lumbar spine, SI joints, and symphysis pubis. No lytic or blastic lesions were noted. There was no misalignment, no significant disc space narrowing. As for the shoulder discomfort and bilateral hand numbness the symptoms have been going off and on for a while, but recent symptoms began approximately 4 to 5 days ago. She has been experiencing numbness in the hands, but no cramping, no spasms or joint pain. She is not engaged in anyrepetitive motion activity that may have triggered the symptoms that she can think of. She has no neck pain, no radicular symptoms. PAST MEDICAL HISTORY Past Medical History: Diagnosis Date ??? Diabetes mellitus ([facility]) Pre-diabetes , last HgbA1c 6.4% PAST SURGICAL HISTORY Past Surgical History: Procedure Laterality Date ??? BUNIONECTOMY Bilateral FAMILY HISTORY family history includes Diabetes in [...] HPI and scanned patient questionnaire. PHYSICAL EXAMINATION There were no vitals taken for this visit. ASSESSMENT: 1. Bilateral hip pain - Plain x-rays demonstrate degenerative changes at the hip joint. 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 I believe this represents degeneration and irregular contour of the otherwise normally rounded femoral head. We discussed treatment options which consist primarily rest, perhaps some physical therapy. She may benefit from orthopedic evaluation and would defer to their judgment as to whether she would benefit from local corticosteroid injections 2. Low back pain with bilateral radicular symptoms. EMG/NCS was unremarkable, but plain x-rays demonstrate mild degenerative changes with no significant disc space narrowing, no lytic or blastic lesions, no spondylolisthesis. Start time: 9:24 am, End Time: 9:35 am PLAN: 1. Rest, avoid lifting, pushing, pulling heavy objects weighing more than 20 lbs. 2. Refer to PT after lifting of Covid-19 social distancing restrictions. 3. Refer to Orthopedics after lifting of Covid-19 social distancing restrictions. 4. Can take OTC NSAID's (I.e. Advil/ibuprofen) 200mg tabs 2-3 tabs q8h p.r.n. 5. Consider EMG/NCS 2UE's is symptoms persist over 4 weeks duration. Edward Vásquez MD documented in this encounter Plan of Treatment Not on file documented as of this encounter Visit Diagnoses Diagnosis Bilateral hip pain- Primary Pain in joint, pelvic region and thigh Bilateral sciatica Sciatica Chronic pain of both shoulders Pain in joint, shoulder region Bilateral hand numbness Disturbance of skin sensation documented in this encounter Care Teams Team Sports Sales Associate Relationship Specialty Start Date End Date Shaka Younger MD [address] [place] [id number] PCP - General 09/29/10 documented as of this encounter
--- OUTSIDE RECORDS SUMMARY | 2024-05-02 10:25 | XMS_ITS | Encounter Summary ---
Author Organization [facility] Address [address] [place] [address] Care Team Providers Care Mapping Specialist Name Role Phone Unavailable Primary Care Provider Unavailabl e Encounter Details Date Type Department Care Team (Late st Contact Info) Description 11/16/2006 Results Only [facility] - Maple conversion [address] [place] [address] Barry García MD [address] [place], [place] [address] Social History Tobacco Use Types Packs/Day Years [...] Comments HPV DETECTION, HIGH RISK TYPES Routine 11/16/2006 8:21 EDT documented in this encounter Results * HUMAN PAPILLOMA VIRUS DNA TEST (11/16/2006 8:21 EDT) Specimen Description Cervix, ThinPrep vial [facility] Result Negative for HPV types 16, 18, 31, 33, 35, 39, 45, 51, 52, 56, 58, 59, and 68. [facility] Report Status Final [id number] [facility] 11/16/2006 8:21 EDT 11/16/2006 15:30 EDT us Barry García MD MICROBIOLOGY - GENERAL ORDERA BLES Final Result Performing Organization Address City/State/[facility] Co de Phone Number [facility] [address] [address] documented in this encounter Visit Diagnoses Not on filedocumented in this encounter
--- OUTSIDE RECORDS SUMMARY | 2024-05-02 10:25 | XMS_ITS | Encounter Summary ---
Author Organization [facility] Address [address] [place] [address] Care Team Providers Care Cementer Name Role Phone Shaka Younger MD Primary Care Provider [phone] Encounter Details Date Type Department Care Team (Late st Contact Info) Description 03/27/2019 Lab Requisition [facility] Pathology & Laboratory Medicine - [address] [address] Unknown, Provider, Social History Tobacco Use Types [...] 1/2 ANTIGEN AND ANTIBODY, 4TH GENERATION Routine 03/26/2019 10:25 EST documented in this encounter Results * HIV 1/2 ANTIGEN AND ANTIBODY, 4TH GENERATION (03/26/2019 10:25 EST) HIV 1 and 2 Antibody/p24 Antigen, 4th Generation Negative Negative 03/28/2019 14:55 EST [facility] Comment: If acute HIV-1 infection is suspected in a high risk ??patient, submit plasma specimen for HIV-1 RNA quantitation test. Fourth Generation assay performed on the Siemens Centaur. Blood VENOUS BLOOD / Unknown 03/26/2019 10:25 EST 03/27/2019 16:46 EST us Provider Unknown IMMUNOLOGY AND SEROLOGY JAG BRITT Final Result [facility] [address] [place] [address] documented in this encounter Visit Diagnoses Not on filedocumented in this encounter Care Teams Cementer Relationship Specialty Start Date End Date Shaka Younger MD [address] [place] [address] PCP - General 09/29/10 documented as of this encounter
--- OUTSIDE RECORDS SUMMARY | 2024-05-02 10:25 | XMS_ITS | Encounter Summary ---
Author Organization [facility] Address [address] [place] [address] Care Team Providers Care Tilt Tray Driver Name Role Phone Unavailable Primary Care Provider Unavailabl e Encounter Details Date Type Department Care Team (Late st Contact Info) Description 09/17/2004 Results Only [facility] - Maple conversion [address] [place] [address] Mark Busby PA [address] [place], [place] [address] Social History Tobacco Use Types Packs/Day Years [...] Priority Date/Time Associated Diagnosis Comments CYTOPATHOLOGY Routine 09/17/2004 0:00 EDT documented in this encounter Results * CYTOPATHOLOGY (09/17/2004 0:00 EDT) Pathology Report: CYTOPATHOLOGY REPORT Reports generated via electronic interface contain original data; however they are lacking the format of the original report. Caution should be taken when reading/interpreti ng unformatted reports. Name: ? ELIESER DUGGAN ? Accession #: ? [id number] : ? 1970 (Age: 34) ??F ?Collect Date: ? 09/17/2004 Location: ? [facility] ? Receive Date: ? 09/19/2004 Provider: ?MARK JACOBS Copy to: ? Specimen/Source: ?ThinPrep Pap Test, Cervix, processed on [employer] SquarePrep Imaging System, with manual evaluation Last Menstrual Period: ? 09/05/04 ? SPECIMEN ADEQUACY ? Satisfactory for Evaluation - transformation zone component present GENERAL CATEGORIZATION ? Negative for Intraepithelial Lesion or Malignancy INTERPRETATION ? Reactive cellular changes associated with inflammation present (includes repair). ? Document reviewed and electronically signed by: ? ZO JACK MD ? Report Date: ??10/02/2004 10:12 End of Report [facility] 09/17/2004 09/19/2004 us Mark JACOBS PATHOLOGY ORDERABLES Final Res ult [facility] [address] [place] [address] documented in this encounter Visit Diagnoses Not on filedocumented in this encounter
--- OUTSIDE RECORDS SUMMARY | 2024-05-02 10:25 | XMS_ITS | Encounter Summary ---
Author Organization [facility] Address [address] [place] [address] Care Team Providers Care Frame Changer Name Role Phone Unavailable Primary Care Provider Unavailabl e Encounter Details Date Type Department Care Team (Late st Contact Info) Description 07/03/2003 Results Only [facility] - Maple conversion [address] [place] [address] Barry García MD [address] [place], [place] [id number] Social History Tobacco Use Types Packs/Day Years [...] Priority Date/Time Associated Diagnosis Comments CYTOPATHOLOGY Routine 07/03/2003 0:00 EDT documented in this encounter Results * CYTOPATHOLOGY (07/03/2003 0:00 EDT) Pathology Report: CYTOPATHOLOGY REPORT Reports generated via electronic interface contain original data; however they are lacking the format of the original report. Caution should be taken when reading/interpreti ng unformatted reports. Name: ? ELIESER DUGGAN ? Accession #: ? [id number] : ? 1970 (Age: 33) ??F ?Collect Date: ? 07/03/2003 Location: ? [facility] ? Receive Date: ? 07/05/2003 Provider: ?Sana GARCÍA MD Copy to: ? Specimen/Source: ?Conventional Pap Test, Cervix Last Menstrual Period: ? Pre Pregn. 1 yr ago Hormonal/Contracep tive Status: ? Control Pills ? SPECIMEN ADEQUACY ? Satisfactory for Evaluation - transformation zone component present GENERAL CATEGORIZATION ? Negative for Intraepithelial Lesion or Malignancy ? Document reviewed and electronically signed by: ? ARTURO Saucedo(ASCP) ? Report Date: ??07/09/2003 12:37 End of Report [facility] 07/03/2003 07/05/2003 us Barry García MD PATHOLOGY ORDERABLES Final Re sult [facility] [address] [place] [address] documented in this encounter Visit Diagnoses Not on filedocumented in this encounter
--- OUTSIDE RECORDS SUMMARY | 2024-05-02 10:26 | XMS_ITS | Encounter Summary ---
Author Organization [facility] Address [address] [place] [address] Care Team Providers Care Freelance Data Entry Name Role Phone Unavailable Primary Care Provider Unavailabl e Encounter Details Date Type Department Care Team (Late st Contact Info) Description 01/11/2000 Results Only [facility] - Maple conversion [address] [place] [address] Unknown, Provider, Social History Tobacco Use Types [...] Priority Date/Time Associated Diagnosis Comments CYTOPATHOLOGY Routine 01/11/2000 0:00 EDT documented in this encounter Results * CYTOPATHOLOGY (01/11/2000 0:00 EDT) Pathology Report: CYTOPATHOLOGY REPORT Reports generated via electronic interface contain original data; however they are lacking the format of the original report. Caution should be taken when reading/interpreti ng unformatted reports. Name: ? ELIESER DUGGAN ? Accession #: ? [id number] : ? 1970 (Age: 29) ??F ?Collect Date: ? 01/11/2000 Location: ? [facility] ? Receive Date: ? 01/14/2000 Provider: ?RAFITA LAND MD Copy to: ? Specimen/Source: ?ThinPrep Pap Test, Cervix Last Menstrual Period: ? 12/31/99 Other: ? Client ID#: [id number] ? SPECIMEN ADEQUACY ? Satisfactory for evaluation. GENERAL CATEGORIZATION ? Within Normal Limits ? Document reviewed and electronically signed by: ? TAMMI Melendez(ASCP) ? Report Date: ??01/21/2000 09:34 End of Report [facility] 01/11/2000 01/14/2000 us Provider Unknown PATHOLOGY ORDERABLES Final R esult [facility] [address] [place] [address] documented in this encounter Visit Diagnoses Not on filedocumented in this encounter
--- OUTSIDE RECORDS SUMMARY | 2024-05-02 10:26 | XMS_ITS | Encounter Summary ---
Author Organization [facility] Address [address] [place] [address] Care Team Providers Care Pelletising Extruder Operator Name Role Phone Unavailable Primary Care Provider Unavailabl e Encounter Details Date Type Department Care Team (Late st Contact Info) Description 07/12/1999 12:24 EDT Hospital Encounter [address] [address] Stacy Duffy MD [address] [place] [phone] Social History Tobacco Use Types Packs/Day Years [...] Procedure Name Priority Date/Time Associated Diagnosis Comments BLOOD TYPE FOR PRENATALS- AMBULATORY Routine 07/12/1999 12:27 EDT COMPLETE BLOOD COUNT Routine 07/12/1999 12:27 EDT QUANT BETA HCG, Routine 07/12/1999 12:27 EDT AST Routine 07/12/1999 12:27 EDT documented in this encounter Results * HCG (07/12/1999 12:27 EDT) HCG 552 mIU/ml [facility] Comment: <4 = Negative 4-10 = Borderline, recommend repeat. 07/12/1999 12:2 7 EDT 07/12/1999 12:38 EDT Stacy Duffy MD CHEMISTRY & BLOOD GAS ORDERABL ES Final Result Performing Organization Address City/[facility]/ZIP Co de Phone Number [facility] [address] [place] [address] * (ABNORMAL) HEMAGRAM (07/12/1999 12:27 EDT) WBC 9.01 4.0 - 12.4 K/cmm [facility] RBC 4.44 3.86 - 5.04 M/cmm [facility] Hemoglobin 13.4 11.6 - 15.2 gm/dl [facility] HCT 39.5 34.9 - 44.4 % [facility] MCV 89 81 - 98 fl [facility] MCH 30.2 26.7 - 33.3 pg [facility] MCHC 33.9 32.1 - 35.9 gm/dl [facility] PLT 356(H) 141 - 320 K/cmm [facility] RDW-CV 13.0 11.7 - 14.6 % [facility] 07/12/1999 12:2 7 EDT 07/12/1999 12:38 EDT Stacy Duffy MD HEMATOLOGY & PF4 ORDERABLES Fi nal Result Performing Organization Address City/[facility]/ZIP Co de Phone Number [facility] [address] [place] [address] * BLOOD TYPE FOR PRENATALS- AMBULATORY (07/12/1999 12:27 EDT) ABO and Rh Type O POS [facility] 07/12/1999 12:2 7 EDT 07/12/1999 12:38 EDT Stacy Duffy MD BLOOD BANK ORDERABLES Final Re sult Performing Organization Address City/[facility]/ZIP Co de Phone Number [facility] [address] [place] [address] * AST (07/12/1999 12:27 EDT) AST 15 8 - 50 U/L [facility] 07/12/1999 12:2 7 EDT 07/12/1999 12:38 EDT Stacy Duffy MD CHEMISTRY & BLOOD GAS ORDERABL ES Final Result Performing Organization Address City/[facility]/ZIP Co de Phone Number [facility] [address] [place] [address] documented in this encounter Visit Diagnoses Not on filedocumented in this encounter
--- OUTSIDE RECORDS SUMMARY | 2024-05-02 10:26 | XMS_ITS | Encounter Summary ---
Author Organization [facility] Address [address] [place] [address] Care Team Providers Care Certified Registered Nurse Practitioner Name Role Phone Unavailable Primary Care Provider Unavailabl e Encounter Details Date Type Department Care Team (Late st Contact Info) Description 09/01/2000 Results Only [facility] - Maple conversion [address] [place] [address] Barry García MD [address] [place], [place] [address] Social History Tobacco Use Types Packs/Day Years [...] Priority Date/Time Associated Diagnosis Comments CYTOPATHOLOGY Routine 09/01/2000 0:00 EDT documented in this encounter Results * CYTOPATHOLOGY (09/01/2000 0:00 EDT) Pathology Report: CYTOPATHOLOGY REPORT Reports generated via electronic interface contain original data; however they are lacking the format of the original report. Caution should be taken when reading/interpreti ng unformatted reports. Name: ? ELIESER DUGGAN ? Accession #: ? [id number] : ? 1970 (Age: 30) ??F ?Collect Date: ? 09/01/2000 Location: ? [facility] ? Receive Date: ? 09/05/2000 Provider: ?Sana GARCÍA MD Copy to: ? Specimen/Source: ?Conventional Pap Test, Cervix/Endocervix Last Menstrual Period: ? 06/08/00 Menstrual/Pregnanc y Status: ? Other: ? Client ID#: [id number] ? SPECIMEN ADEQUACY ? Satisfactory for evaluation but limited by obscuring inflammation. GENERAL CATEGORIZATION ? Benign Cellular Changes DESCRIPTIVE DIAGNOSIS ? Reactive cellular changes associated with inflammation present (includes repair). Predominance of coccobacilli present consistent with shift in vaginal cari. ? Document reviewed and electronically signed by: ? REBECCA BRIDGES MD [facility] ? Report Date: ??09/08/2000 17:33 End of Report [facility] 09/01/2000 09/05/2000 Barry García MD PATHOLOGY ORDERABLES Final Re sult [facility] [address] [place] [address] documented in this encounter Visit Diagnoses Not on filedocumented in this encounter
--- OUTSIDE RECORDS SUMMARY | 2024-05-02 10:26 | XMS_ITS | Encounter Summary ---
Author Organization [facility] Address [address] [place] [address] Care Team Providers Care Forest Logistics Manager Name Role Phone Unavailable Primary Care Provider Unavailabl e Encounter Details Date Type Department Care Team (Latest Contact Info) Description 02/11/1999 6:11 EST - 02/12/1999 11:59 EST Hospital Encounter [facility] General Surgery Unit [address] [place] [address] Timmy Floyd MD PhD Discharge Disposition: Home or Self Care Social History Tobacco Use Types Packs/Day Years Used Date Smoking Tobacco: Never Assessed Comments Unknown Sex and Gender Information Value Date Recorded Sex Assigned at Not on file Legal Sex Female 18:13 EST Gender Identity Not on file Sexual Orientation Not on file documented as of this encounter Discharge Disposition Disposition Code Departure Means Destination Home or Self Care documented in this encounter Plan of Treatment Not on file documented as of this encounter Procedures Procedure Name Priority Date/Time Associated Diagnosis Comments COMPLETE BLOOD COUNT Routine 02/12/1999 6:05 EST TEST, URINE Routine 02/11/1999 7:10 EST COMPLETE BLOOD COUNT Routine 02/11/1999 7:10 EST documented in this encounter Results * (ABNORMAL) HEMAGRAM (02/12/1999 6:05 EST) WBC 9.68 4.0 - 12.4 K/cmm [facility] RBC 3.84(L) 3.86 - 5.04 M/cmm [facility] Hemoglobin 11.7 11.6 - 15.2 gm/dl [facility] HCT 34.2(L) 34.9 - 44.4 % [facility] MCV 89 81 - 98 fl [facility] MCH 30.5 26.7 - 33.3 pg [facility] MCHC 34.3 32.1 - 35.9 gm/dl [facility] PLT 293 141 - 320 K/cmm [facility] RDW-CV 13.1 11.7 - 14.6 % [facility] 02/12/1999 6:05 EST 02/12/1999 7:24 EST Timmy Floyd MD PhD HEMATOLOGY & PF4 ORDERAB LES Final Result Performing Organization Address City/[facility]/ZIP Co de Phone Number [facility] [address] [place] [address] * TEST, URINE (02/11/1999 7:10 EST) Result-Pregnanc y Test, Ur Neg [facility] Specific Winfred 1.015 [facility] 02/11/1999 7:10 EST 02/11/1999 7:11 EST Timmy Floyd MD PhD URINALYSIS ORDERABLES Fi nal Result Performing Organization Address [facility] Co de Phone Number [facility] [address] [place] [address] * (ABNORMAL) HEMAGRAM (02/11/1999 7:10 EST) WBC 8.80 4.0 - 12.4 K/cmm [facility] RBC 4.47 3.86 - 5.04 M/cmm [facility] Hemoglobin 13.6 11.6 - 15.2 gm/dl [facility] HCT 39.5 34.9 - 44.4 % [facility] MCV 88 81 - 98 fl [facility] MCH 30.5 26.7 - 33.3 pg [facility] MCHC 34.5 32.1 - 35.9 gm/dl [facility] PLT 343(H) 141 - 320 K/cmm [facility] RDW-CV 12.6 11.7 - 14.6 % [facility] 02/11/1999 7:10 EST 02/11/1999 7:11 EST us Timmy Floyd MD PhD HEMATOLOGY & PF4 ORDERAB LES Final Result Performing Organization Address City/State/[facility] Co de Phone Number [facility] [address] [place] [address] documented in this encounter Visit Diagnoses Not on filedocumented in this encounter
--- OUTSIDE RECORDS SUMMARY | 2024-05-02 10:26 | XMS_ITS | Encounter Summary ---
Author Organization [facility] Address [address] [place] [address] Care Team Providers Care Food Service Coordinator Name Role Phone Unavailable Primary Care Provider Unavailabl e Encounter Details Date Type Department Care Team (Late st Contact Info) Description 07/20/1999 11:48 EDT Hospital Encounter [facility] - Other [address] [place] [id number] Timmy Floyd MD PhD Unknown, Provider, MD Social History Tobacco Use Types Packs/Day Years [...] Procedure Name Priority Date/Time Associated Diagnosis Comments QUANT BETA HCG, Routine 07/20/1999 11:11 EDT documented in this encounter Results * HCG (07/20/1999 11:11 EDT) HCG 1553 mIU/ml [facility] Comment: <4 = Negative 4-10 = Borderline, recommend repeat. 07/20/1999 11:1 1 EDT 07/20/1999 11:12 EDT Timmy Floyd MD PhD CHEMISTRY & BLOOD GAS OR DERABLES Final Result [facility] [address] [place] [id number] documented in this encounter Visit Diagnoses Not on filedocumented in this encounter
[2024-05-02 10:33] LABS: Bilirubin Negative (Negative); Blood Trace-intact (Negative); Clarity Clear (Clear); Glucose Negative (Negative); Ketones Negative (Negative); Leukocyte Esterase Negative (Negative); Nitrite Negative (Negative); Urobilinogen 0.2 mg/dL (Up to 0.2)
[2024-05-02 10:47] LABS: Bacteria Few HPF (Negative); C & S Indicated? No; Casts Negative LPF (Negative); Crystals Negative HPF (Negative); Epithelial Cells Rare HPF (Negative); Mucus Negative (Negative); Other Cells Negative (Negative); WBC 0-2 HPF (0-5)
== END 2024-05-02 11:10 | disposition home or self-care (01) ==
PROVIDERS: Emergency Provider Physician Assistant; PCP Nurse Practitioner Family
DX: K29.80 Duodenitis without bleeding (principal); K76.0 Fatty (change of) liver, not elsewhere classified
CPT/HCPCS: 80053; 83690; 96374; 96375; 99285; 74177; 81003; 81015; 83735; 85025; 99284; J0131; J1885; J2405; J3490

== ENCOUNTER 2024-05-31 15:09 | Outpatient (REF) | payer OTHER, SELFPAY ==
[2024-05-31 17:10] LABS: ALT 30 U/L (14-59); AST 17 U/L (15-37); Albumin 4.1 g/dL (3.4-5.0); Alkaline Phosphatase 105 U/L (46-116); Anion Gap 10.2 mmol/L (3-11); BUN 13 mg/dL (7-18); Bilirubin, Total 0.3 mg/dL (0.2-1.0); CO2 27.8 mmol/L (21.0-32.0); CREATININE 0.7 mg/dL (0.55-1.02); Calcium 9.7 mg/dL (8.5-10.1); Calculated LDL 112 mg/dL (<100); Chloride 106 mmol/L (98-107); Cholesterol 201 mg/dL (<200); Estimated GFR 102.07 (mL/min/1.73m2); Glucose 77 mg/dL (74-106); HDL Cholesterol 55 mg/dL (>or=50); Potassium 4.8 mmol/L (3.5-5.1); Sodium 144 mmol/L (136-145); Total Protein 7.8 g/dL (6.4-8.2); Triglyceride 174 mg/dL (<150); Vitamin D 25 Total 25 ng/mL (30-100)
[2024-05-31 17:11] LABS: COMMENT (LAB VIEW ONLY) 57.26 mg/dL
== END 2024-05-31 15:10 | disposition home or self-care (01) ==
LOC: NCHCN 15:09
PROVIDERS: PCP Nurse Practitioner Family; Visit Provider Nurse Practitioner Family
DX: Z00.00 Encounter for general adult medical examination without abnormal findings (principal)
CPT/HCPCS: 80053; 80061; 82306; 82043; 82570

== ENCOUNTER 2024-07-24 00:10 | Outpatient (CLI) | payer OTHER, SELFPAY ==
--- NOTE | 2024-07-24 | DI.MAMMO_ITS ---
Exam(s) MAMMO SCREENING EXAM: MAMMO SCREENING CLINICAL HISTORY: Screening, Z12.31. TECHNIQUE: Bilateral full field digital CC and MLO mammographic images were obtained with 3D tomosyn thesis and utilizing computer aided detection (CAD). COMPARISON: Prior mammograms were reviewed. FINDINGS: There has been no significant change in the appearance and distribution of the fibroglandular tissue. There are no CAD designations. There are no new spiculated masses nor malignant appearing microcalcification groups. There is no significant architectural distortion nor skin thickening-retraction. IMPRESSION: No radiographic evidence of malignancy. BI-RADS Category 1 - Negative Breast Density - Category B - There are scattered areas of fibroglandular density. Breast density Category C or D implies that the patient has dense breast tissue. Dense breast tissue can make it harder to find cancer on a mammogram. Dense breast tissue is also associated with an incr eased risk of breast cancer. This information about the result of the mammogram report was provided to the patient to raise their awareness. Use this report when you speak with the patient about their risks for breast cancer, which includes their family history. At that time, you may recommend additional screening tests (Ultrasoun d or MRI) as these tests may add significant information. A negative radiographic report should not delay biopsy if a dominant or clinically suspicious mass is present. Up to ten percent of cancers are not identified on mammography. A negative report may reinforce clinical impression. Adenosis and dense breasts may obscure an underlying neoplasm. False positive reports average 6 to 10%. Patient will receive a letter notifying them of these results.
== END 2024-07-24 00:30 ==
LOC: DI 00:10
PROVIDERS: PCP Nurse Practitioner Family; Visit Provider Nurse Practitioner Family
DX: Z12.31 Encounter for screening mammogram for malignant neoplasm of breast (principal); R92.323 Mammographic fibroglandular density, bilateral breasts
CPT/HCPCS: 77063; 77067